=== PATIENT | female | born 1945 | race Caucasian/White ===

== ENCOUNTER 2016-09-01 14:17 | Emergency (ER) | payer BC ==
[2016-09-01 14:29] VITALS: BP 138/90
--- NOTE | 2016-09-01 14:53 | EDM.PDOC ---
ED HPI Trauma - General Chief Complaint: Lower Extremity Injury/Pain Stated Complaint: RLE swelling Time Seen by Provider: 09/01/16 14:30 Source: Reports: Patient History Limitations: Reports: No limitations - History of Present Illness INITIAL COMMENTS - FREE TEXT/NARRATIVE: This patient is a 71 year old female that presents to the ER. Patient reports that she noticed about 1 1/2 hours ago that she had RLE swelling. Patient reports some pain associated with the swelling. Patient reports that also for about 1 month she has had congestion, drainage, mild back pain, mild abdominal burning. Patient also requests a urine to be collected. Patient denies ford, dizziness, n, v, d, f, cp, soa, bowel changes. Patient RLE does not have heat. There is redness to the plantar aspect of 1-4 digits. No open wounds are seen. This is not hot to touch. There are vericose veins. Pulses +2, cap refill <2 sec , sensory/motor function intact, neurovascular intact. Occurred When: just prior to arrival Occurred Where: home Method of Injury: unknown Severity: mild Pain/Injury Location: Reports: lower extremity, right Consciousness: Reports: no loss of consciousness Associated Symptoms: Reports: abdominal pain (burning for 1 month. ). Denies: chest pain, confusion, dizziness, headache, lightheadedness, muscle spasms, nausea/vomiting, neck pain, ringing in ears, seizures, shortness of breath, slurred speech, trouble walking, vision changes Allergies/ADRs: Allergies mirabegron [From Myrbetriq] Allergy (Verified 09/01/16 14:18) Other sulfamethoxazole [From Bactrim] Allergy (Verified 09/01/16 14:18) Hives tramadol Allergy (Verified 09/01/16 14:18) Confusion trimethoprim [From Bactrim] Allergy (Verified 09/01/16 14:18) Hives Home Medications: Ambulatory Orders Estradiol 1 mg PO DAILY 01/04/14 [Confirmed 09/02/16] LORazepam 2 mg PO BEDTIME 01/04/14 [Confirmed 09/02/16] Levothyroxine [Sythroid] 100 mcg PO DAILY 01/04/14 [Confirmed 09/02/16] Metoprolol Succinate [Toprol Xl] 100 mg PO DAILY 01/04/14 [Confirmed 09/02/16] Acetaminophen [Tylenol] 650 mg PO Q6H PRN 12/11/14 [Confirmed 09/02/16] Aspirin 325 mg PO BEDTIME 12/11/14 [Confirmed 09/02/16] Cholecalciferol (Vitamin D3) [Vitamin D-3] 5,000 units PO BEDTIME 12/11/14 [ Confirmed 09/02/16] Cranberry 2 cap PO DAILY 12/11/14 [Confirmed 09/02/16] Cyanocobalamin (Vitamin B-12) [Cyanocobalamin Injection] 2,000 mcg IM Q14D 12/11 [Confirmed 09/02/16] Esomeprazole Magnesium [Nexium] 20 mg PO DAILY PRN 12/11/14 [Confirmed 09/02/16] Lactobac Cmb #3/Fos/Pantethine [Probiotic & Acidophilus] 1 tab PO DAILY [Confirmed 09/02/16] Loratadine [Claritin] 1 tab PO DAILY PRN 12/11/14 [Confirmed 09/02/16] Tetrahydrozoline [Visine] 1 drop EYEBOTH QID PRN 12/11/14 [Confirmed 09/02/16] Sennosides/Docusate Sodium [Marina-Colace] 1 tab PO BID PRN 02/17/15 [Confirmed ] Cinnamon Bark [Cinnamon] 500 mg PO DAILY 09/01/16 [Confirmed 09/02/16] Diltiazem HCl [Cartia Xt] 120 mg PO DAILY 09/01/16 [Confirmed 09/02/16] atorvaSTATin Calcium [Atorvastatin Calcium] 20 mg PO DAILY 09/01/16 [Confirmed 09/02/16] Albuterol Sulfate [Proair Hfa] 1 puff INH Q4H PRN 09/02/16 [Confirmed 09/02/16] Budesonide/Formoterol [Symbicort 160-4.5 MCG] 2 puff INH BID 09/02/16 [ Confirmed 09/02/16] Folic Acid 1 mg PO DAILY 09/02/16 [Confirmed 09/02/16] Potassium Chloride 20 meq PO BID 09/02/16 [Confirmed 09/02/16] Past Medical History - Past Health History Medical/Surgical History: Denies Medical/Surgical History HEENT History: Reports: Cataract, Sinusitis Cardiovascular History: Reports: Afib, Other (see below) Other Cardiovascular History: SVT Respiratory History: Reports: Asthma Gastrointestinal History: Reports: None Genitourinary History: Reports: Urinary incontinence [employer] History: Reports: Musculoskeletal History: Reports: Fracture Psychiatric History: Reports: Anxiety Hematologic History: Reports: Blood transfusion(s) Oncologic (Cancer) History: Reports: None Dermatologic History: Reports: Other (see below) Other Dermatologic History: reports years ago dr removed skin cancer on face. - Past Surgical History HEENT Surgical History: Reports: Cataract surgery Cardiovascular Surgical History: Reports: Cardiac Ablation GI Surgical History: Reports: Appendectomy, Cholecystectomy Female Surgical History: Reports: Hysterectomy, Other (see below) Other Female Surgeries/Procedures: bladder reconstructed Endocrine Surgical History: Reports: Thyroidectomy Oncologic Surgical History: Reports: Biopsy of breast Social & Family History - Family History Family Medical History: Noncontributory - Tobacco Use Smoking Status *Q: Never Smoker Second Hand Smoke Exposure: Yes - Recreational Drug Use Recreational Drug Use: No Review of Systems - Review of Systems Review Of Systems: See Below Constitutional: Reports: no symptoms Eyes: Reports: no symptoms Ears: Reports: no symptoms Nose: Reports: congestion, clear discharge Mouth/Throat: Reports: no symptoms Respiratory: Reports: Cough, Sputum Cardiovascular: Reports: edema (RLE) GI/Abdominal: Reports: Abdominal pain (burning) Genitourinary: Reports: no symptoms Musculoskeletal: Reports: back pain (right), leg pain (RLE with swelling) Skin: Reports: other (RLE mild discoloration. vericose veins. ) Neurological: Reports: No Symptoms Psychiatric: Reports: no symptoms Trauma Exam - Physical Exam Exam: See Below Exam Limited By: Uncooperative General Appearance: Reports: no apparent distress Head: Reports: atraumatic, normocephalic Eyes: bilateral eye: normal inspection Ears: Reports: normal external exam, normal canal, hearing grossly normal, normal TMs Nose: Reports: normal inspection, normal mucousa, no blood Throat/Mouth: Reports: Normal inspection, Normal lips, Normal gums, Normal oropharynx, Normal voice, No airway compromise Neck: Reports: non-tender, full range of motion, normal alignment, normal inspection Respiratory Exam: Reports: no respiratory distress, lungs clear, normal breath sounds, no accessory muscle use Cardiovascular: Reports: normal peripheral pulses, regular rate, rhythm, no edema, no gallop, no JVD, no murmur, no rub GI/Abdominal: Reports: soft, non tender Back: Reports: full range of motion, normal inspection, non-tender. Denies: CVA tenderness (R), CVA tenderness (L) Extremities: Reports: no evidence of injury, normal range of motion, pelvis stable, pedal edema (RLE+2), tenderness (mild general RLE. ), other (RLE: no redness to extremity beside plantar aspect 1-4 digits. no heat. Pulses +2. Cap refill <2 sec. ). Denies: bony-point tenderness, joint effusion, pain with movement, unable to bear weight Neurologic: Reports: no motor/sensory deficits, alert, normal mood/affect, oriented x 3 Skin: Reports: Normal color, Warm/dry - Tamika Coma Score Best Eye Response ([place]): (4) open spontaneously Best Verbal Response ([place]): (5) oriented Best Motor Response ([place]): (6) obeys commands Course - Vital Signs Last Recorded V/S: Last Vital Signs Temp 99.0 F 09/01/16 14:24 Pulse 66 09/01/16 14:24 Resp 20 09/01/16 14:24 BP 138/90 09/01/16 14:24 Pulse Ox 91 L 09/01/16 14:24 - Orders/Labs/Meds Labs: Laboratory Tests 09/01/16 09/01/16 09/01/16 Range/Units 14:38 14:47 15:09 WBC 13.8 H (5.0-10.0) 10^3/uL RBC 4.36 (4.00-5.50) 10^6/uL Hgb 12.6 (12.0-16.0) g/dL Hct 38.6 (37.0-47.0) % MCV 88.5 (82.0-94.0) fL MCH 28.9 (27.0-32.0) pg MCHC 32.6 L (33.0-38.0) g/dL RDW Coeff of Sher 14.8 (11.0-15.0) % Plt Count 325 (150-400) 10^3/uL Neut % (Auto) 87.6 H (35-85) % Lymph % (Auto) 6.4 L (10-55) % [place] % (Auto) 5.9 (0-16) % Eos % (Auto) 0 (0-5) % Baso % (Auto) 0.1 (0-3) % Neut # (Auto) 12.10 H (1.80-7.00) 10^3/uL Lymph # (Auto) 0.88 L (1.00-4.80) 10^3/uL [place] # (Auto) 0.82 H (0.00-0.80) 10^3/uL Eos # (Auto) 0.00 (0.00-0.45) 10^3/uL Baso # (Auto) 0.02 10^3/uL PT (9.7-12.3) SEC INR (0.92-1.18) APTT (20.0-45.0) SEC D-Dimer, Quantitative 4.75 H (0.00-0.50) Sodium (136-145) mEq/L Potassium (3.5-5.0) mEq/L Chloride (98-106) mEq/L Carbon Dioxide (21-32) mmol/L BUN (7-18) mg/dL Creatinine (0.6-1.0) mg/dL Est Cr Clr Drug Dosing mL/min Estimated GFR (MDRD) (>=60) mL/min Glucose (75-99) mg/dL Calcium (8.4-10.1) mg/dL Total Bilirubin (0.0-1.0) mg/dL AST (15-37) U/L ALT (12-78) U/L Alkaline Phosphatase (46-116) U/L Szt-I-Nyvoqfltjoz Pept (0-1000) pg/nL Total Protein (6.4-8.2) g/dL Albumin (3.4-5.0) g/dL Urine Color Yellow (YELLOW) Urine Appearance Clear (CLEAR) Urine pH 7.0 (4.5-8.0) Ur Specific [place] 1.006 (1.003-1.020) Urine Protein Negative (NEGATIVE) mg/dL Urine Glucose (UA) Negative (NEGATIVE) mg/dL Urine Ketones Negative (NEGATIVE) mg/dL Urine Occult Blood Negative (NEGATIVE) Urine Nitrite Negative (NEGATIVE) Urine Bilirubin Negative (NEGATIVE) Urine Urobilinogen 0.2 (0.2-1.0) EU/dL Ur Leukocyte Esterase Negative (NEGATIVE) Urine RBC Not seen (0-5) /HPF Urine WBC Not seen (0-5) /HPF Ur Squamous Epith Cells Occasional H (NOT SEEN) /HPF Urine Bacteria Occasional H (NOT SEEN) /HPF 09/01/16 09/01/16 Range/Units 15:09 15:39 WBC (5.0-10.0) 10^3/uL RBC (4.00-5.50) 10^6/uL Hgb (12.0-16.0) g/dL Hct (37.0-47.0) % MCV (82.0-94.0) fL MCH (27.0-32.0) pg MCHC (33.0-38.0) g/dL RDW Coeff of Sher (11.0-15.0) % Plt Count (150-400) 10^3/uL Neut % (Auto) (35-85) % Lymph % (Auto) (10-55) % [place] % (Auto) (0-16) % Eos % (Auto) (0-5) % Baso % (Auto) (0-3) % Neut # (Auto) (1.80-7.00) 10^3/uL Lymph # (Auto) (1.00-4.80) 10^3/uL [place] # (Auto) (0.00-0.80) 10^3/uL Eos # (Auto) (0.00-0.45) 10^3/uL Baso # (Auto) 10^3/uL PT 10.3 (9.7-12.3) SEC INR 0.96 (0.92-1.18) APTT 22.5 (20.0-45.0) SEC D-Dimer, Quantitative (0.00-0.50) Sodium 141 (136-145) mEq/L Potassium 3.9 (3.5-5.0) mEq/L Chloride 103 (98-106) mEq/L Carbon Dioxide 27 (21-32) mmol/L BUN 14 (7-18) mg/dL Creatinine 0.6 (0.6-1.0) mg/dL Est Cr Clr Drug Dosing 72.11 mL/min Estimated GFR (MDRD) > 60 (>=60) mL/min Glucose 96 (75-99) mg/dL Calcium 8.3 L (8.4-10.1) mg/dL Total Bilirubin 0.5 (0.0-1.0) mg/dL AST 14 L (15-37) U/L ALT 22 (12-78) U/L Alkaline Phosphatase 72 (46-116) U/L Mez-Z-Ubwfsqluaiy Pept 178 (0-1000) pg/nL Total Protein 6.6 (6.4-8.2) g/dL Albumin 3.2 L (3.4-5.0) g/dL Urine Color (YELLOW) Urine Appearance (CLEAR) Urine pH (4.5-8.0) Ur Specific [place] (1.003-1.020) Urine Protein (NEGATIVE) mg/dL Urine Glucose (UA) (NEGATIVE) mg/dL Urine Ketones (NEGATIVE) mg/dL Urine Occult Blood (NEGATIVE) Urine Nitrite (NEGATIVE) Urine Bilirubin (NEGATIVE) Urine Urobilinogen (0.2-1.0) EU/dL Ur Leukocyte Esterase (NEGATIVE) Urine RBC (0-5) /HPF Urine WBC (0-5) /HPF Ur Squamous Epith Cells (NOT SEEN) /HPF Urine Bacteria (NOT SEEN) /HPF Meds: Medications Discontinued Medications Generic Name Dose Route Start Last Admin Trade Name Freq PRN Reason Stop Dose Admin Ceftriaxone Sodium 1 gm 09/01/16 15:50 09/01/16 16:04 Rocephin IM 09/01/16 15:51 1 gm ONETIME ONE Administration Enoxaparin Sodium 100 mg 09/01/16 15:50 09/01/16 16:05 Lovenox SUBCUT 09/01/16 15:51 100 mg NOW STA Administration Lidocaine HCl Confirm 09/01/16 15:50 09/01/16 16:06 Xylocaine 1% Administered 09/01/16 15:51 Not Given Dose 20 ml .ROUTE .STK-MED ONE Warfarin Sodium 5 mg 09/01/16 15:53 09/01/16 16:04 Coumadin PO 09/01/16 15:54 5 mg ONETIME ONE Administration - Re-Assessments/Exams Free Text/Narrative Re-Assessment/Exam: 09/01/16 15:36 Patient has pulses and good color. Very low suspicion of arterial clot. Patient has a high d-dimer, I will treat for possible DVT. We do not have US this weekend. I will treat patient with Lovenox today and tomorrow. She will also get abx treatment for leukocytosis and redness to feet with swelling. Higher suspicion for DVT verses cellulitis. However, without having US this weekend to give definitive diagnosis, I will treat both. Departure - Departure Time of Disposition: 15:39 Disposition: Home, Self-Care 01 Condition: fair Clinical Impression: Cellulitis of right lower extremity Right leg DVT Qualifiers: Affected thrombotic vein of extremity: unspecified vein of extremity Chronicity : acute Qualified Code(s): I82.401 - Acute embolism and thrombosis of unspecified deep veins of right lower extremity Instructions: Deep Vein Thrombosis, Cellulitis, Adult Referrals: Deni Malagon MD [Primary Care Provider] - Forms: ED Department Discharge Additional Instructions: Followup with your primary care provider Saturday Morning Return to the ER for worsening of condition or any emergent concerns Elevate leg Lovenox 100mg 1 injection every 12 hours at the hospital: PLEASE RETURN TO THE HOSPITAL FOR INJECTIONS ON: Saturday: 7am and 7pm Have ultrasound performed on legs Saturday at 8am. - Assessment/Plan Plan: PLEASE SEE RN NOTE FOR PFSH.
[2016-09-01 15:33] LABS: CHLORIDE,CL 103 mEq/L (98-106); SODIUM,NA 141 mEq/L (136-145)
[2016-09-01] MEDS ORDERED: cefTRIAXone 1 GM Vial IM ONE (15:50)
[2016-09-01] MEDS ORDERED: Lidocaine 1% 20 ML MDV ONE (15:50)
[2016-09-01] MEDS ORDERED: Enoxaparin 100 MG/1 ML Syringe SUBCUT STA (15:50)
[2016-09-01] MEDS ORDERED: Warfarin 5 MG Tab PO ONE (15:53)
== END 2016-09-01 16:13 | disposition home or self-care (01) ==
LOC: CC.ED 14:17
DX: I82.401 Acute embolism and thrombosis of unspecified deep veins of right lower extremity (principal); L03.115 Cellulitis of right lower limb; J45.909 Unspecified asthma, uncomplicated; I48.91 Unspecified atrial fibrillation; F41.9 Anxiety disorder, unspecified; Z98.49 Cataract extraction status, unspecified eye; Z90.49 Acquired absence of other specified parts of digestive tract; Z90.710 Acquired absence of both cervix and uterus; Z88.5 Allergy status to narcotic agent; Z88.2 Allergy status to sulfonamides; Z88.8 Allergy status to other drugs, medicaments and biological substances
CPT/HCPCS: 36415; 80053; 81001; 83880; 85025; 85379; 85610; 85730; 96372; 99283; A9270; J0696; J1650

== ENCOUNTER 2016-09-25 16:19 | Inpatient (IN) | payer BC, MEDICARE ==
[2016-09-25 16:53] LABS: CHLORIDE,CL 100 mEq/L (98-106); SODIUM,NA 134 mEq/L (136-145)
[2016-09-25] MEDS ORDERED: Sodium Chloride 0.9% 10 ML Syringe FLUSH PRN (18:48)
[2016-09-25] MEDS ORDERED: Magnesium Hydroxide 400 MG/5 ML Susp 30 ML Cup PO PRN (18:48)
[2016-09-25] MEDS ORDERED: Warfarin 5 MG Tab PO ONE (18:48)
[2016-09-25] MEDS: Enoxaparin 100 MG/1 ML Syringe SUBCUT SCH (20:07)
[2016-09-25] MEDS: Potassium Chloride 10 MEQ Tab.ER PO SCH (22:13)
[2016-09-25] MEDS: LORazepam 0.5 MG Tab PO SCH (22:13)
[2016-09-26] MEDS: Potassium Chloride 10 MEQ Tab.ER PO SCH ×2 (08:06→16:53)
[2016-09-26] MEDS: Enoxaparin 100 MG/1 ML Syringe SUBCUT SCH ×2 (08:07→20:10)
[2016-09-26] MEDS ORDERED: LORazepam 0.5 MG Tab PO PRN (08:29)
[2016-09-26] MEDS ORDERED: Warfarin 5 MG Tab PO ONE (08:45)
[2016-09-26] MEDS: Diltiazem 120 MG Cap.CD PO SCH (08:46)
[2016-09-26] MEDS: Metoprolol Succinate 100 MG Tab.ER PO SCH (08:47)
[2016-09-26] MEDS: Ondansetron 4 MG Tab.DIS PO PRN ×2 (08:54→20:23)
--- NOTE | 2016-09-26 09:01 | PN ---
DATE: 09/26/2016 S: Katharine Zuñiga came in markedly short of breath. CTA shows bilateral pulmonary emboli. Now started on anticoagulation. O: GENERAL: The patient says she feels better today. NECK: Supple. CHEST: Occasional wheeze. CARDIAC: Sounds are good. No edema or evidence of DVTs in the lower extremities. ASSESSMENT: BILATERAL PULMONARY EMBOLI. P: Continue anticoagulation. MARIALUISA/SHOAIB /[id number]
[2016-09-26] MEDS ORDERED: TETRAHYDROZOLINE EYEBOTH PRN (10:22)
[2016-09-26] MEDS ORDERED: Albuterol/Ipratropium 3.0-0.5 MG/3 ML Neb Soln NEB PRN (10:22)
[2016-09-26] MEDS ORDERED: Albuterol 8 GM Inhaler INH PRN (10:22)
[2016-09-26] MEDS: Formoterol/Mometasone 200-5 MCG 8.8 GM Inhaler IH SCH ×2 (11:23→20:13)
[2016-09-26] MEDS: Pantoprazole 40 MG Tab.CR PO PRN (11:24)
[2016-09-26] MEDS: Levothyroxine 100 MCG Tab PO SCH (11:24)
[2016-09-26] MEDS: atorvaSTATin 20 MG Tab PO SCH (11:25)
[2016-09-26] MEDS: Folic Acid 1 MG Tab PO SCH (11:25)
[2016-09-26] MEDS: KETOTIFEN FUMARATE OP SCH ×2 (11:25→20:11)
[2016-09-26] MEDS: Estradiol 1 MG Tab PO SCH (11:25)
[2016-09-26] MEDS: ACIDOPHILUS PO SCH (11:26)
[2016-09-26] MEDS: PROBIOTIC PO SCH (11:26)
[2016-09-26] MEDS: Ciprofloxacin 500 MG Tab PO SCH ×2 (11:35→16:53)
[2016-09-26] MEDS: Acetaminophen 325 MG Tab PO PRN (17:02)
[2016-09-26] MEDS ORDERED: LORazepam 0.5 MG Tab PO SCH (20:00)
[2016-09-26] MEDS: Aspirin 325 MG Tab.EC PO SCH (20:08)
[2016-09-26] MEDS: LORazepam 0.5 MG Tab PO SCH (20:08)
[2016-09-26] MEDS: Polyvinyl Alcohol 1.4% Ophth Soln 15 ML Bottle EYEBOTH PRN (20:09)
[2016-09-26] MEDS: Cholecalciferol (Vitamin D3) 1,000 Unit Tab PO SCH (20:09)
[2016-09-26] MEDS: Temazepam 15 MG Cap PO PRN (22:19)
[2016-09-27] MEDS: Levothyroxine 100 MCG Tab PO SCH (06:17)
[2016-09-27] MEDS ORDERED: Metoprolol Succinate 100 MG Tab.ER PO SCH (08:00)
[2016-09-27] MEDS ORDERED: [UNRECOGNIZED DRUG - OTHER] SCH (08:00)
[2016-09-27] MEDS ORDERED: Diltiazem 120 MG Cap.CD PO SCH (08:00)
[2016-09-27] MEDS: Diltiazem 120 MG Cap.CD PO SCH (08:07)
[2016-09-27] MEDS: Ciprofloxacin 500 MG Tab PO SCH ×2 (08:08→17:47)
[2016-09-27] MEDS: Folic Acid 1 MG Tab PO SCH (08:08)
[2016-09-27] MEDS: KETOTIFEN FUMARATE OP SCH ×2 (08:08→19:31)
[2016-09-27] MEDS: Potassium Chloride 10 MEQ Tab.ER PO SCH ×2 (08:08→17:47)
[2016-09-27] MEDS: Estradiol 1 MG Tab PO SCH (08:08)
[2016-09-27] MEDS: PROBIOTIC PO SCH (08:09)
[2016-09-27] MEDS: ACIDOPHILUS PO SCH (08:09)
[2016-09-27] MEDS: atorvaSTATin 20 MG Tab PO SCH (08:09)
[2016-09-27] MEDS: Enoxaparin 100 MG/1 ML Syringe SUBCUT SCH (08:09)
[2016-09-27] MEDS: Metoprolol Succinate 100 MG Tab.ER PO SCH (08:09)
[2016-09-27] MEDS: Formoterol/Mometasone 200-5 MCG 8.8 GM Inhaler IH SCH ×2 (09:21→21:00)
[2016-09-27] MEDS: Polyvinyl Alcohol 1.4% Ophth Soln 15 ML Bottle EYEBOTH PRN (09:21)
[2016-09-27] MEDS: Acetaminophen 325 MG Tab PO PRN ×2 (10:35→19:43)
[2016-09-27] MEDS ORDERED: Warfarin 5 MG Tab PO ONE (14:34)
[2016-09-27] MEDS: LORazepam 0.5 MG Tab PO SCH (19:31)
[2016-09-27] MEDS: Aspirin 325 MG Tab.EC PO SCH (19:31)
[2016-09-27] MEDS: Enoxaparin 40 MG/0.4 ML Syringe SUBCUT SCH (19:32)
[2016-09-27] MEDS: Cholecalciferol (Vitamin D3) 1,000 Unit Tab PO SCH (19:32)
[2016-09-27] MEDS: Temazepam 15 MG Cap PO PRN (22:50)
[2016-09-28] MEDS: Acetaminophen 325 MG Tab PO PRN ×4 (03:36→20:33)
--- NOTE | 2016-09-28 07:52 | PN ---
DATE: 09/27/2016 S: Katharine Zuñiga is in with bilateral pulmonary emboli. Says she is feeling better today. O: NECK: Supple. CHEST: A little bit of wheeze. CARDIAC: Sounds good. EXTREMITIES: No edema. There is no evidence of peripheral DVTs, so I suspect this is pelvic thrombosis. She is stabilized. I am going continue anticoagulation and back her Lovenox off a little bit though. MARIALUISA/SHOAIB /[id number]
--- NOTE | 2016-09-28 09:13 | PN ---
DATE: 09/28/2016 S: Katharine Zuñiga is in with bilateral pulmonary emboli. Says she feels better today. O: NECK: Supple. CHEST: Basically clear. CARDIAC: Sounds were good. No edema. 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 P: Continue anticoagulation. MARIALUISA/SHOAIB /[id number]
[2016-09-28] MEDS: Potassium Chloride 10 MEQ Tab.ER PO SCH ×2 (09:15→17:00)
[2016-09-28] MEDS: atorvaSTATin 20 MG Tab PO SCH (09:15)
[2016-09-28] MEDS: Enoxaparin 40 MG/0.4 ML Syringe SUBCUT SCH ×2 (09:15→20:27)
[2016-09-28] MEDS: Pantoprazole 40 MG Tab.CR PO PRN (09:16)
[2016-09-28] MEDS: Estradiol 1 MG Tab PO SCH (09:16)
[2016-09-28] MEDS: Metoprolol Succinate 100 MG Tab.ER PO SCH (09:16)
[2016-09-28] MEDS: KETOTIFEN FUMARATE OP SCH ×2 (09:17→20:28)
[2016-09-28] MEDS: Ciprofloxacin 500 MG Tab PO SCH ×2 (09:17→17:01)
[2016-09-28] MEDS: Folic Acid 1 MG Tab PO SCH (09:17)
[2016-09-28] MEDS: Polyvinyl Alcohol 1.4% Ophth Soln 15 ML Bottle EYEBOTH PRN (09:18)
[2016-09-28] MEDS: PROBIOTIC PO SCH (09:18)
[2016-09-28] MEDS: ACIDOPHILUS PO SCH (09:18)
[2016-09-28] MEDS: Diltiazem 120 MG Cap.CD PO SCH (09:18)
[2016-09-28] MEDS: Formoterol/Mometasone 200-5 MCG 8.8 GM Inhaler IH SCH ×2 (09:20→20:28)
[2016-09-28] MEDS: Levothyroxine 100 MCG Tab PO SCH (09:20)
[2016-09-28] MEDS ORDERED: Warfarin 2.5 MG Tab PO ONE (10:00)
[2016-09-28] MEDS: Ondansetron 4 MG Tab.DIS PO PRN ×2 (11:32→17:00)
[2016-09-28] MEDS: Cholecalciferol (Vitamin D3) 1,000 Unit Tab PO SCH (20:27)
[2016-09-28] MEDS: LORazepam 0.5 MG Tab PO SCH (20:27)
[2016-09-28] MEDS: Aspirin 325 MG Tab.EC PO SCH (20:28)
[2016-09-29] MEDS: Acetaminophen 325 MG Tab PO PRN ×3 (04:00→20:05)
[2016-09-29] MEDS: Levothyroxine 100 MCG Tab PO SCH (06:50)
[2016-09-29] MEDS: Potassium Chloride 10 MEQ Tab.ER PO SCH ×2 (07:50→16:46)
[2016-09-29] MEDS: atorvaSTATin 20 MG Tab PO SCH (07:50)
[2016-09-29] MEDS: Diltiazem 120 MG Cap.CD PO SCH (07:51)
[2016-09-29] MEDS: Ondansetron 4 MG Tab.DIS PO PRN (07:51)
[2016-09-29] MEDS: Estradiol 1 MG Tab PO SCH (07:51)
[2016-09-29] MEDS: Folic Acid 1 MG Tab PO SCH (07:51)
[2016-09-29] MEDS: KETOTIFEN FUMARATE OP SCH ×2 (07:52→20:06)
[2016-09-29] MEDS: Polyvinyl Alcohol 1.4% Ophth Soln 15 ML Bottle EYEBOTH PRN (07:53)
[2016-09-29] MEDS: Enoxaparin 40 MG/0.4 ML Syringe SUBCUT SCH ×2 (07:53→20:06)
[2016-09-29] MEDS: ACIDOPHILUS PO SCH (07:54)
[2016-09-29] MEDS: PROBIOTIC PO SCH (07:54)
[2016-09-29] MEDS: Formoterol/Mometasone 200-5 MCG 8.8 GM Inhaler IH SCH ×2 (08:00→20:06)
[2016-09-29] MEDS: Metoprolol Succinate 100 MG Tab.ER PO SCH (08:00)
--- NOTE | 2016-09-29 09:06 | PCM.PN ---
- General Info Functional Status: Reports: new symptoms (abdominal pain with constipation.) - Review of Systems General: Reports: Chills, Other (flushed) HEENT: Reports: headaches (frontal) Pulmonary: Reports: no symptoms Cardiovascular: Reports: No Symptoms Gastrointestinal: Reports: Abdominal pain, Constipation. Denies: Diarrhea, Nausea, Vomiting Genitourinary: Reports: other (decreased urination yesterday during day, then increased during night per patient.) Musculoskeletal: Reports: no symptoms Skin: Reports: no symptoms Neurological: Reports: No Symptoms Psychiatric: Reports: no symptoms - Patient Data Vitals - most recent: Last Vital Signs Temp 98.1 F 09/29/16 07:31 Pulse 79 09/29/16 08:00 Resp 16 09/29/16 07:31 BP 109/73 09/29/16 08:00 Pulse Ox 97 09/29/16 07:31 Weight - most recent: 230 lb Med Orders - Current: Current Medications Acetaminophen (Tylenol) 650 mg PO Q6H PRN PRN Reason: Pain Last Admin: 09/29/16 04:00 Dose: 650 mg Albuterol (Ventolin Hfa) 0 gm INH Q4H PRN PRN Reason: Dyspnea Albuterol/Ipratropium (Duoneb 3.0-0.5 Mg/3 Ml) 3 ml NEB QID PRN PRN Reason: Shortness of Breath Artificial Tears (Liquitears 1.4% Ophth Soln) 0 ml EYEBOTH QID PRN PRN Reason: Dry Eyes Last Admin: 09/29/16 07:53 Dose: 1 drop Aspirin (Ecotrin) 325 mg PO BEDTIME [facility] Last Admin: 09/28/16 20:28 Dose: 325 mg Atorvastatin Calcium (Lipitor) 20 mg PO DAILY [facility] Last Admin: 09/29/16 07:50 Dose: 20 mg Cholecalciferol (Vitamin D3) 5,000 units PO BEDTIME [facility] Last Admin: 09/28/16 20:27 Dose: 5,000 units Diltiazem HCl (Cardizem Cd) 120 mg PO DAILY [facility] Last Admin: 09/29/16 07:51 Dose: 120 mg Enoxaparin Sodium (Lovenox) 40 mg SUBCUT BID [facility] Last Admin: 09/29/16 07:53 Dose: 40 mg Estradiol (Estradiol) 1 mg PO DAILY [facility] Last Admin: 09/29/16 07:51 Dose: 1 mg Folic Acid (Folic Acid) 1 mg PO DAILY [facility] Last Admin: 09/29/16 07:51 Dose: 1 mg Levothyroxine Sodium (Synthroid) 100 mcg PO 0700 [facility] Last Admin: 09/29/16 06:50 Dose: 100 mcg Lorazepam (Ativan) 2 mg PO BEDTIME [facility] Last Admin: 09/28/16 20:27 Dose: 2 mg Lorazepam (Ativan) 1 mg PO BID PRN PRN Reason: ANXIETY Last Admin: 09/29/16 07:52 Dose: 1 mg Magnesium Hydroxide (Milk Of Magnesia) 30 ml PO Q12H PRN PRN Reason: Constipation Metoprolol Succinate (Toprol Xl) 100 mg PO DAILY [facility] Last Admin: 09/29/16 08:00 Dose: 100 mg Mometasone Furoate/Formoterol Fumar (Dulera 200-5 Mcg) 2 puff IH BIDRT [facility] Last Admin: 09/29/16 08:00 Dose: 2 puff Ptom (Ketotifen Fumarate [Alaway] 1 Drop) 1 drop OP BID [facility] Last Admin: 09/29/16 07:52 Dose: Not Given Ptom [Probiotic & (Acidophilus]) 1 tab PO DAILY [facility] Last Admin: 09/29/16 07:54 Dose: Not Given Ptom ( Tetrahydrozoline [ Visine] 1 Drop) 1 drop EYEBOTH QID PRN PRN Reason: Dry Eyes Ondansetron HCl (Zofran Odt) 4 mg PO Q4H PRN PRN Reason: nausea, able to take PO Last Admin: 09/29/16 07:51 Dose: 4 mg Pantoprazole Sodium (Protonix) 40 mg PO DAILY PRN PRN Reason: Heartburn Last Admin: 09/28/16 09:16 Dose: 40 mg Potassium Chloride (Klor-Con 10) 20 meq PO BIDMEALS [facility] Last Admin: 09/29/16 07:50 Dose: 20 meq Senna/Docusate Sodium (Senna Plus) 1 tab PO BID PRN PRN Reason: Constipation Last Admin: 09/29/16 07:51 Dose: 1 tab Sodium Chloride (Saline Flush) 10 ml FLUSH ASDIRECTED PRN PRN Reason: Keep Vein Open Temazepam (Restoril) 15 mg PO BEDTIME PRN PRN Reason: Sleep Last Admin: 09/27/16 22:50 Dose: 15 mg Discontinued Medications Ciprofloxacin (Ciprofloxacin Hcl) 500 mg PO BIDMEALS [facility] Stop: 09/28/16 17:31 Last Admin: 09/28/16 17:01 Dose: 500 mg Enoxaparin Sodium (Lovenox) 100 mg SUBCUT Q12H [facility] Last Admin: 09/26/16 08:07 Dose: 100 mg Enoxaparin Sodium (Lovenox) 100 mg SUBCUT Q12H [facility] Last Admin: 09/27/16 08:09 Dose: 100 mg Lorazepam (Ativan) 2 mg PO BEDTIME [facility] Daily Warfarin Order (--Ask Prescriber) 1 each .XX DAILY [facility] Last Admin: 09/27/16 09:22 Dose: 1 each Warfarin Sodium (Coumadin) 10 mg PO ONETIME ONE Stop: 09/25/16 18:49 Last Admin: 09/25/16 20:06 Dose: 10 mg Warfarin Sodium (Coumadin) 10 mg PO ONETIME ONE Stop: 09/26/16 08:46 Last Admin: 09/26/16 08:47 Dose: 10 mg Warfarin Sodium (Coumadin) 7.5 mg PO ONETIME ONE Stop: 09/27/16 14:35 Last Admin: 09/27/16 14:54 Dose: 7.5 mg Warfarin Sodium (Coumadin) 7.5 mg PO ONETIME ONE Stop: 09/28/16 10:01 Last Admin: 09/28/16 11:32 Dose: 7.5 mg - Exam General: alert, oriented, cooperative, no acute distress HEENT: Pupils equal, Pupils reactive Neck: supple Lungs: Clear to auscultation, Normal respiratory effort Cardiovascular: Regular Rate, Regular Rhythm, No Murmurs Abdomen: bowel sounds present, soft, tenderness (mild LLQ), distension. No: rigidity, rebound, guarding, CVA tenderness Back Exam: normal inspection, full range of motion. No: CVA tenderness (L), CVA tenderness (R) Extremities: no edema, normal pulses, no tenderness/swelling, no clubbing, no cyanosis, no calf tenderness Skin: warm, dry, intact Neurological: no new focal deficit Psy/Mental Status: alert, normal affect, normal mood - Problem List Review Problem List Initiated/Reviewed/Updated: Yes - My Orders Last 24 Hours: My Active Orders 09/29/16 08:31 Abdomen 1V Flat [CR] Stat CBC WITH AUTO DIFF [HEME] Routine COMPREHENSIVE METABOLIC PN,CMP [CHEM] Routine INR,PT,PROTHROMBIN TIME [COAG] Routine 09/29/16 08:50 UA W/MICROSCOPIC [URIN] Routine - Plan Plan:: This patient is a 71 year old female that was admitted for PE. After talking with PCP of the patient it is planned to discharge the patient home if PT/INR are near therapeutic. However, patient reports that today when she woke up that she felt flushed, then had chills when ambulating to the bathroom. She reports that she has not had a BM in 3 days and is now having some adbominal discomfort. Patient reports a frontal headache. The patient denies lightheadedness, neck pain, neck stiffness, congestion, drainage, cp, soa, bowel changes, rashes. Patient is alert and oriented. She does not appear to be in acute distress. I have ordered labs and KUB and will review.
[2016-09-29 09:15] LABS: CHLORIDE,CL 101 mEq/L (98-106); SODIUM,NA 137 mEq/L (136-145)
[2016-09-29] MEDS: Aspirin 325 MG Tab.EC PO SCH (20:05)
[2016-09-29] MEDS: LORazepam 0.5 MG Tab PO SCH (20:05)
[2016-09-29] MEDS: Cholecalciferol (Vitamin D3) 1,000 Unit Tab PO SCH (20:06)
[2016-09-30] MEDS: Acetaminophen 325 MG Tab PO PRN ×2 (01:00→10:35)
[2016-09-30] MEDS: Levothyroxine 100 MCG Tab PO SCH (06:25)
[2016-09-30] MEDS: Estradiol 1 MG Tab PO SCH (08:02)
[2016-09-30] MEDS: Enoxaparin 40 MG/0.4 ML Syringe SUBCUT SCH (08:02)
[2016-09-30] MEDS: Potassium Chloride 10 MEQ Tab.ER PO SCH (08:03)
[2016-09-30] MEDS: atorvaSTATin 20 MG Tab PO SCH (08:03)
[2016-09-30] MEDS: Diltiazem 120 MG Cap.CD PO SCH (08:03)
[2016-09-30] MEDS: Metoprolol Succinate 100 MG Tab.ER PO SCH (08:03)
[2016-09-30] MEDS: Folic Acid 1 MG Tab PO SCH (08:03)
[2016-09-30] MEDS: ACIDOPHILUS PO SCH (08:04)
[2016-09-30] MEDS: PROBIOTIC PO SCH (08:04)
[2016-09-30] MEDS: KETOTIFEN FUMARATE OP SCH (08:04)
[2016-09-30] MEDS: Formoterol/Mometasone 200-5 MCG 8.8 GM Inhaler IH SCH (08:06)
[2016-09-30] MEDS ORDERED: Magnesium Citrate Solution 296 ML Bottle PO ONE ×2 (08:08→12:15)
[2016-09-30 12:47] VITALS: BP 138/81
--- NOTE | 2016-09-30 13:52 | PCM.DCSUM1 ---
Discharge Summary - Hospital Course HPI Initial Comments: This patient is a 71 year old female that was admitted for PE. Patient was placed on Coumadin to become therapeutic. The patient had reproted feeling constipated yesterday. I ordered Mag Citrate today, she had a successful BM. She now has no symptoms. She reports she feels good today after having a BM. Patient labs today are unremarkable. The patient reports she would like to go home. She reports she can see her PCP in office. I do agree with this plan. I will discharge the patient home today. Stable. - Discharge Data Discharge Date: 09/30/16 Discharge Disposition: Home, Self-Care 01 Condition: Good - Patient Instructions Diet: Usual Diet as Tolerated Activity: As Tolerated Showering/Bathing: May Shower Notify Provider of: Fever, Increased Pain, Swelling and Redness, Drainage, Nausea and/or Vomiting - Discharge Plan Prescriptions/Med Rec: Warfarin [Coumadin] 5 mg PO DAILY #30 tablet Home Medications: Home Meds Estradiol 1 mg PO DAILY 01/04/14 [History] LORazepam 2 mg PO BEDTIME 01/04/14 [History] Levothyroxine [Synthroid] 100 mcg PO DAILY 01/04/14 [History] Metoprolol Succinate [Toprol Xl] 100 mg PO DAILY 01/04/14 [History] Acetaminophen [Tylenol] 650 mg PO Q6H PRN 12/11/14 [History] Aspirin 325 mg PO BEDTIME 12/11/14 [History] Cholecalciferol (Vitamin D3) [Vitamin D3] 5,000 units PO BEDTIME 12/11/14 [ History] Cyanocobalamin (Vitamin B-12) [Cyanocobalamin Injection] 2,000 mcg IM Q14D 12/11 [History] Esomeprazole Magnesium [Nexium] 20 mg PO DAILY PRN 12/11/14 [History] Lactobac Cmb #3/Fos/Pantethine [Probiotic & Acidophilus] 1 tab PO DAILY [History] Tetrahydrozoline [Visine] 1 drop EYEBOTH QID PRN 12/11/14 [History] Sennosides/Docusate Sodium [Marina-Colace] 1 tab PO BID PRN 02/17/15 [History] Diltiazem HCl [Cartia Xt] 120 mg PO DAILY 09/01/16 [History] atorvaSTATin Calcium [Atorvastatin Calcium] 20 mg PO DAILY 09/01/16 [History] Albuterol Sulfate [Proair Hfa] 1 puff INH Q4H PRN 09/02/16 [History] Budesonide/Formoterol [Symbicort 160-4.5 MCG] 2 puff INH BID 09/02/16 [History] Folic Acid 1 mg PO DAILY 09/02/16 [History] Potassium Chloride 20 meq PO BID 09/02/16 [History] Albuterol/Ipratropium [DuoNeb 3.0-0.5 MG/3 ML] 3 ml NEB QID PRN 09/25/16 [ History] Dextran 70/Hypromellose [Artificial Tears] 1 drop EYEBOTH QID PRN 09/25/16 [ History] Ketotifen Fumarate [Alaway] 1 drop OP BID 09/25/16 [History] LORazepam 1 mg PO BID PRN 09/26/16 [History] Warfarin [Coumadin] 5 mg PO DAILY #30 tablet 09/30/16 [Rx] - Discharge Summary/Plan Comment DC Time >30 min.: No Discharge Summary/Plan Comment: Followup with your primary care provider this week Return to the ER for worsening of condition or any emergent concerns Take meds as prescribed. - General Info Date of Service: 09/30/16 Functional Status: Reports: pain controlled - Review of Systems General: Reports: No Symptoms HEENT: Reports: no symptoms Pulmonary: Reports: no symptoms Cardiovascular: Reports: No Symptoms Gastrointestinal: Reports: No symptoms Genitourinary: Reports: no symptoms Musculoskeletal: Reports: no symptoms Skin: Reports: no symptoms Neurological: Reports: No Symptoms Psychiatric: Reports: no symptoms - Patient Data Vitals - Most Recent: Last Vital Signs Temp 98.0 F 09/30/16 12:00 Pulse 68 09/30/16 12:00 Resp 20 09/30/16 12:00 BP 138/81 09/30/16 12:00 Pulse Ox 95 09/30/16 12:00 Weight - Most Recent: 230 lb Med Orders - Current: Current Medications Acetaminophen (Tylenol) 650 mg PO Q6H PRN PRN Reason: Pain Last Admin: 09/30/16 10:35 Dose: 650 mg Albuterol (Ventolin Hfa) 0 gm INH Q4H PRN PRN Reason: Dyspnea Albuterol/Ipratropium (Duoneb 3.0-0.5 Mg/3 Ml) 3 ml NEB QID PRN PRN Reason: Shortness of Breath Artificial Tears (Liquitears 1.4% Ophth Soln) 0 ml EYEBOTH QID PRN PRN Reason: Dry Eyes Last Admin: 09/29/16 07:53 Dose: 1 drop Aspirin (Ecotrin) 325 mg PO BEDTIME [facility] Last Admin: 09/29/16 20:05 Dose: 325 mg Atorvastatin Calcium (Lipitor) 20 mg PO DAILY [facility] Last Admin: 09/30/16 08:03 Dose: 20 mg Cholecalciferol (Vitamin D3) 5,000 units PO BEDTIME [facility] Last Admin: 09/29/16 20:06 Dose: 5,000 units Diltiazem HCl (Cardizem Cd) 120 mg PO DAILY [facility] Last Admin: 09/30/16 08:03 Dose: 120 mg Enoxaparin Sodium (Lovenox) 40 mg SUBCUT BID [facility] Last Admin: 09/30/16 08:02 Dose: 40 mg Estradiol (Estradiol) 1 mg PO DAILY [facility] Last Admin: 09/30/16 08:02 Dose: 1 mg Folic Acid (Folic Acid) 1 mg PO DAILY [facility] Last Admin: 09/30/16 08:03 Dose: 1 mg Levothyroxine Sodium (Synthroid) 100 mcg PO 0700 [facility] Last Admin: 09/30/16 06:25 Dose: 100 mcg Lorazepam (Ativan) 2 mg PO BEDTIME [facility] Last Admin: 09/29/16 20:05 Dose: 2 mg Lorazepam (Ativan) 1 mg PO BID PRN PRN Reason: ANXIETY Last Admin: 09/29/16 07:52 Dose: 1 mg Magnesium Hydroxide (Milk Of Magnesia) 30 ml PO Q12H PRN PRN Reason: Constipation Last Admin: 09/29/16 16:40 Dose: 30 ml Metoprolol Succinate (Toprol Xl) 100 mg PO DAILY [facility] Last Admin: 09/30/16 08:03 Dose: 100 mg Mometasone Furoate/Formoterol Fumar (Dulera 200-5 Mcg) 2 puff IH BIDRT [facility] Last Admin: 09/30/16 08:06 Dose: 2 puff Ptom (Ketotifen Fumarate [Alaway] 1 Drop) 1 drop OP BID [facility] Last Admin: 09/30/16 08:04 Dose: Not Given Ptom [Probiotic & (Acidophilus]) 1 tab PO DAILY [facility] Last Admin: 09/30/16 08:04 Dose: Not Given Ptom ( Tetrahydrozoline [ Visine] 1 Drop) 1 drop EYEBOTH QID PRN PRN Reason: Dry Eyes Ondansetron HCl (Zofran Odt) 4 mg PO Q4H PRN PRN Reason: nausea, able to take PO Last Admin: 09/29/16 07:51 Dose: 4 mg Pantoprazole Sodium (Protonix) 40 mg PO DAILY PRN PRN Reason: Heartburn Last Admin: 09/28/16 09:16 Dose: 40 mg Potassium Chloride (Klor-Con 10) 20 meq PO BIDMEALS [facility] Last Admin: 09/30/16 08:03 Dose: 20 meq Senna/Docusate Sodium (Senna Plus) 1 tab PO BID PRN PRN Reason: Constipation Last Admin: 09/29/16 07:51 Dose: 1 tab Sodium Chloride (Saline Flush) 10 ml FLUSH ASDIRECTED PRN PRN Reason: Keep Vein Open Temazepam (Restoril) 15 mg PO BEDTIME PRN PRN Reason: Sleep Last Admin: 09/27/16 22:50 Dose: 15 mg Discontinued Medications Ciprofloxacin (Ciprofloxacin Hcl) 500 mg PO BIDMEALS [facility] Stop: 09/28/16 17:31 Last Admin: 09/28/16 17:01 Dose: 500 mg Enoxaparin Sodium (Lovenox) 100 mg SUBCUT Q12H [facility] Last Admin: 09/26/16 08:07 Dose: 100 mg Enoxaparin Sodium (Lovenox) 100 mg SUBCUT Q12H [facility] Last Admin: 09/27/16 08:09 Dose: 100 mg Lorazepam (Ativan) 2 mg PO BEDTIME [facility] Magnesium Citrate (Citrate Of Magnesia) 150 ml PO ONETIME ONE Stop: 09/30/16 08:09 Last Admin: 09/30/16 08:22 Dose: 150 ml Magnesium Citrate (Citrate Of Magnesia) 150 ml PO ONETIME ONE Stop: 09/30/16 12:16 Last Admin: 09/30/16 12:33 Dose: 150 ml Daily Warfarin Order (--Ask Prescriber) 1 each .XX DAILY [facility] Last Admin: 09/27/16 09:22 Dose: 1 each Warfarin Sodium (Coumadin) 10 mg PO ONETIME ONE Stop: 09/25/16 18:49 Last Admin: 09/25/16 20:06 Dose: 10 mg Warfarin Sodium (Coumadin) 10 mg PO ONETIME ONE Stop: 09/26/16 08:46 Last Admin: 09/26/16 08:47 Dose: 10 mg Warfarin Sodium (Coumadin) 7.5 mg PO ONETIME ONE Stop: 09/27/16 14:35 Last Admin: 09/27/16 14:54 Dose: 7.5 mg Warfarin Sodium (Coumadin) 7.5 mg PO ONETIME ONE Stop: 09/28/16 10:01 Last Admin: 09/28/16 11:32 Dose: 7.5 mg - Exam General: Reports: alert, oriented, cooperative Lungs: Reports: Clear to auscultation, Normal respiratory effort Cardiovascular: Reports: Regular Rate, Regular Rhythm Abdomen: Reports: bowel sounds present, soft, no tenderness, no distension Back Exam: Reports: normal inspection, full range of motion Extremities: Reports: no edema, normal pulses, no tenderness/swelling, no clubbing, no cyanosis, no calf tenderness Skin: Reports: warm, dry, intact Neurological: Reports: no new focal deficit Psy/Mental Status: Reports: alert, normal affect, normal mood *Q Meaningful Use (DIS) - VTE *Q VTE Criteria *Q: - Stroke *Q Stroke Criteria *Q: - AMI *Q AMI Criteria *Q:
[2016-09-30] MEDS ORDERED: Warfarin 5 MG Tab PO ONE (14:08)
== END 2016-09-30 15:30 | disposition home or self-care (01) | DRG 134 ==
LOC: CC.FCMC 16:19 → CC.MS 16:19 → UNDOADMIN 18:34 → CC.MS 18:34
PROVIDERS: ADMIT Physician Assistant Medical; ATTEND General Practice
DX: I26.99 Other pulmonary embolism without acute cor pulmonale (principal); I10 Essential (primary) hypertension; R05 Cough; K59.00 Constipation, unspecified; Z83.3 Family history of diabetes mellitus; R51 Headache; Z79.01 Long term (current) use of anticoagulants; R10.9 Unspecified abdominal pain
CPT/HCPCS: 36415; 71275; 74020; 80053; 81001; 83880; 85025; 85379; 85610; 86140; 94760; A9270-GY; J1650; Q9967

== ENCOUNTER 2017-03-30 21:48 | Inpatient (IN) | payer BC, MEDICARE ==
[2017-03-30] MEDS ORDERED: Ondansetron 4 MG/2 ML SDV IVPUSH STA (22:15)
[2017-03-30] MEDS ORDERED: Sodium Chloride 0.9% 1,000 ML IV ONE (22:15)
--- NOTE | 2017-03-30 22:24 | EDM.PDOC ---
ED HPI GENERAL MEDICAL PROBLEM - General Chief Complaint: Abdominal Pain Stated Complaint: abdominal pain Time Seen by Provider: 03/30/17 21:58 Source of Information: Reports: Patient History Limitations: Reports: No Limitations - History of Present Illness INITIAL COMMENTS - FREE TEXT/NARRATIVE: This patient is a 71 year old female that presents to the ER. Patient reports that she started earlier today with constipation. She reports that she took two suppositories and did not have a BM. She reports she called the hospital and told them she was constipated. She reports with the constipation having abdominal pain. She reports she then took some Mirlax. She reports after taking the Miralax she vomited. She reports then close to 9pm she had a large liquid BM. She reports her abdominal pain did improve some after this, but then she vomited again. She reports vomiting a total of 5 times. The patient reports she was concerned about a bowel obstruction. The patient denies ford, dizziness, d, f , congestion, draiange, neck pain, neck stiffness, cp, soa, rashes. Patient does report she has had previous bladder surgeries and chronically leaks urine, but reports last several days she has not leaked any urine. She does repot recently being treated by PCP for UTI. Onset: Today Onset Date: 03/30/17 Location: Reports: Abdomen Quality: Reports: Ache Severity: Moderate Improves with: Reports: None Worsens with: Reports: None Associated Symptoms: Reports: Loss of Appetite, Nausea/Vomiting. Denies: Confusion, Chest Pain, Cough, cough w sputum, Diaphoresis, Fever/Chills, Headaches, Malaise, Rash, Seizure, Shortness of Breath, Syncope, Weakness Left Lower Abdomen Pain Score (Numeric/FACES): 7 - Related Data Allergies Allergy/AdvReac Type Severity Reaction Status Date / Time amitriptyline Allergy Other Verified 03/30/17 21:50 [email or web address] [From Myrbetriq] Allergy Other Verified 09/25/16 20:30 sulfamethoxazole Allergy Hives Verified 09/25/16 20:30 [From Bactrim] tramadol Allergy Confusion Verified 09/25/16 20:30 trimethoprim [From Bactrim] Allergy Hives Verified 09/25/16 20:30 Home Meds: Home Meds Estradiol 1 mg PO DAILY 01/04/14 [History] LORazepam 2 mg PO BEDTIME 01/04/14 [History] Levothyroxine [Synthroid] 100 mcg PO DAILY 01/04/14 [History] Metoprolol Succinate [Toprol Xl] 100 mg PO DAILY 01/04/14 [History] Acetaminophen [Tylenol] 650 mg PO Q6H PRN 12/11/14 [History] Aspirin 325 mg PO BEDTIME 12/11/14 [History] Cholecalciferol (Vitamin D3) [Vitamin D3] 5,000 units PO BEDTIME 12/11/14 [ History] Cyanocobalamin (Vitamin B-12) [Cyanocobalamin Injection] 2,000 mcg IM Q14D 12/11 [History] Esomeprazole Magnesium [Nexium] 20 mg PO DAILY PRN 12/11/14 [History] Lactobac Cmb #3/Fos/Pantethine [Probiotic & Acidophilus] 1 tab PO DAILY [History] Tetrahydrozoline [Visine] 1 drop EYEBOTH QID PRN 12/11/14 [History] Sennosides/Docusate Sodium [Marina-Colace] 1 tab PO BID PRN 02/17/15 [History] Diltiazem HCl [Cartia Xt] 120 mg PO DAILY 09/01/16 [History] atorvaSTATin Calcium [Atorvastatin Calcium] 20 mg PO DAILY 09/01/16 [History] Albuterol Sulfate [Proair Hfa] 1 puff INH Q4H PRN 09/02/16 [History] Budesonide/Formoterol [Symbicort 160-4.5 MCG] 2 puff INH BID 09/02/16 [History] Folic Acid 1 mg PO DAILY 09/02/16 [History] Potassium Chloride 20 meq PO BID 09/02/16 [History] Albuterol/Ipratropium [DuoNeb 3.0-0.5 MG/3 ML] 3 ml NEB QID PRN 09/25/16 [ History] Dextran 70/Hypromellose [Artificial Tears] 1 drop EYEBOTH QID PRN 09/25/16 [ History] Ketotifen Fumarate [Alaway] 1 drop OP BID 09/25/16 [History] LORazepam 1 mg PO BID PRN 09/26/16 [History] Warfarin [Coumadin] 5 mg PO DAILY #30 tablet 09/30/16 [Rx] Past Medical History - Past Health History Medical/Surgical History: Denies Medical/Surgical History HEENT History: Reports: Cataract, Sinusitis Cardiovascular History: Reports: Afib, Other (See Below) Other Cardiovascular History: SVT Respiratory History: Reports: Asthma Gastrointestinal History: Reports: None Genitourinary History: Reports: Urinary Incontinence [employer] History: Reports: Musculoskeletal History: Reports: Fracture Psychiatric History: Reports: Anxiety Hematologic History: Reports: Blood Transfusion(s) Oncologic (Cancer) History: Reports: None Dermatologic History: Reports: Other (See Below) Other Dermatologic History: reports years ago removed skin cancer on face. - Past Surgical History HEENT Surgical History: Reports: Cataract Surgery GI Surgical History: Reports: Appendectomy, Cholecystectomy Female Surgical History: Reports: Hysterectomy, Other (See Below) Endocrine Surgical History: Reports: Thyroidectomy Oncologic Surgical History: Reports: Biopsy of Breast Social & Family History - Family History Family Medical History: Noncontributory - Tobacco Use Smoking Status *Q: Never Smoker Second Hand Smoke Exposure: No - Recreational Drug Use Recreational Drug Use: No ED ROS GENERAL - Review of Systems Review Of Systems: See Below Constitutional: Reports: Malaise, Decreased Appetite HEENT: Reports: No Symptoms Respiratory: Reports: No Symptoms Cardiovascular: Reports: No Symptoms Endocrine: Reports: No Symptoms GI/Abdominal: Reports: Abdominal Pain, Constipation, Distension, Nausea, Vomiting : Reports: No Symptoms Musculoskeletal: Reports: No Symptoms Skin: Reports: No Symptoms Neurological: Reports: No Symptoms Psychiatric: Reports: No Symptoms Hematologic/Lymphatic: Reports: No Symptoms Immunologic: Reports: No Symptoms ED EXAM, GI/ABD - Physical Exam Exam: See Below Exam Limited By: No Limitations General Appearance: Alert, WD/WN, No Apparent Distress, Anxious Eyes: Bilateral: Normal Appearance Ears: Normal External Exam, Normal Canal, Hearing Grossly Normal, Normal TMs Nose: Normal Inspection, Normal Mucosa, No Blood Throat/Mouth: Normal Inspection, Normal Lips, Normal Teeth, Normal Gums, Normal Oropharynx, Normal Voice, No Airway Compromise Head: Atraumatic, Normocephalic Neck: Normal Inspection, Supple, Non-Tender, Full Range of Motion Respiratory/Chest: No Respiratory Distress, Lungs Clear, Normal Breath Sounds, No Accessory Muscle Use Cardiovascular: Normal Peripheral Pulses, Regular Rate, Rhythm, No Edema, No Gallop, No JVD, No Murmur, No Rub GI/Abdominal Exam: Soft, No Organomegaly, No Abnormal Bruit, No Mass, Pelvis Stable, Distended, Tender (LLQ, LUQ, RLQ. ). No: Guarding Back Exam: Normal Inspection, Full Range of Motion. No: CVA Tenderness (L), CVA Tenderness (R) Extremities: Normal Inspection, Normal Range of Motion, Non-Tender, No Pedal Edema, Normal Capillary Refill Neurological: Alert, Oriented Psychiatric: Normal Mood, Anxious Skin Exam: Warm, Dry, Intact, Normal Color, No Rash Lymphatic: No Adenopathy Course - Vital Signs Last Recorded V/S: Last Vital Signs Temp 98.4 F 03/30/17 21:48 Pulse 73 03/30/17 21:48 Resp 18 03/30/17 21:48 BP 146/82 H 03/30/17 21:48 Pulse Ox 95 03/30/17 21:48 - Orders/Labs/Meds Orders: Active Orders 24 hr Category Date Time Status Patient Status Manage Transfer [TRANSFER] Routine ADT 03/30/17 23:00 Ordered Abdomen Pelvis wo Cont [CT] Stat Exams 03/30/17 22:18 Taken CULTURE URINE [RM] Stat Lab 03/30/17 22:41 Received Resuscitation Status Routine Resus Stat 03/30/17 23:01 Ordered Labs: Laboratory Tests 03/30/17 03/30/17 03/30/17 Range/Units 22:03 22:03 22:35 WBC 11.4 H (5.0-10.0) 10^3/uL RBC 4.41 (4.00-5.50) 10^6/uL Hgb 12.3 (12.0-16.0) g/dL Hct 38.2 (37.0-47.0) % MCV 86.6 (82.0-94.0) fL MCH 27.9 (27.0-32.0) pg MCHC 32.2 L (33.0-38.0) g/dL RDW Coeff of Sher 16.1 H (11.0-15.0) % Plt Count 313 (150-400) 10^3/uL Neut % (Auto) 85.7 H (35-85) % Lymph % (Auto) 7.9 L (10-55) % [place] % (Auto) 6.1 (0-16) % Eos % (Auto) 0.2 (0-5) % Baso % (Auto) 0.1 (0-3) % Neut # (Auto) 9.80 H (1.80-7.00) 10^3/uL Lymph # (Auto) 0.90 L (1.00-4.80) 10^3/uL [place] # (Auto) 0.70 (0.00-0.80) 10^3/uL Eos # (Auto) 0.02 (0.00-0.45) 10^3/uL Baso # (Auto) 0.01 10^3/uL Sodium 135 L (136-145) mEq/L Potassium 3.9 (3.5-5.0) mEq/L Chloride 99 (98-106) mEq/L Carbon Dioxide 25 (21-32) mmol/L BUN 19 H D (7-18) mg/dL Creatinine 2.0 H D (0.6-1.0) mg/dL Est Cr Clr Drug Dosing 20.72 mL/min Estimated GFR (MDRD) 24 L (>=60) mL/min Glucose 103 H (75-99) mg/dL Calcium 8.7 (8.4-10.1) mg/dL Total Bilirubin 1.0 (0.0-1.0) mg/dL AST 20 (15-37) U/L ALT 19 (12-78) U/L Alkaline Phosphatase 104 (46-116) U/L Total Protein 7.3 (6.4-8.2) g/dL Albumin 3.5 (3.4-5.0) g/dL Amylase 39 (25-115) U/L Urine Color Brown (YELLOW) Urine Appearance Clear (CLEAR) Urine pH 5.0 (4.5-8.0) Ur Specific Capac 1.010 (1.003-1.020) Urine Protein 100 H (NEGATIVE) mg/dL Urine Glucose (UA) 250 H (NEGATIVE) mg/dL Urine Ketones 15 H (NEGATIVE) mg/dL Urine Occult Blood Trace-lysed H (NEGATIVE) Urine Nitrite Positive H (NEGATIVE) Urine Bilirubin Small H (NEGATIVE) Urine Urobilinogen 2.0 H (0.2-1.0) EU/dL Ur Leukocyte Esterase Trace H (NEGATIVE) Urine RBC 0-5 (0-5) /HPF Urine WBC 0-5 (0-5) /HPF Ur Squamous Epith Cells Occasional H (NOT SEEN) /HPF Urine Bacteria Many H (NOT SEEN) /HPF Meds: Medications Discontinued Medications Generic Name Dose Route Start Last Admin Trade Name Goyo PRN Reason Stop Dose Admin Ceftriaxone Sodium 2 gm 03/30/17 22:45 03/30/17 22:57 Rocephin IVPUSH 03/30/17 22:46 2 gm ONETIME ONE Administration Sodium Chloride 1,000 mls @ 1,000 mls/hr 03/30/17 22:15 03/30/17 22:48 Normal Saline IV 03/30/17 23:14 1,000 mls/hr .BOLUS ONE Administration Ondansetron HCl 4 mg 03/30/17 22:15 03/30/17 22:48 Zofran IVPUSH 03/30/17 22:16 4 mg NOW STA Administration - Radiology Interpretation Free Text/Narrative:: CT: Abd/pelvis: No hydro. Bowel normal. No stones. No acute findings. CT Results Date: 03/30/17 CT Results Time: 23:10 Departure - Departure Time of Disposition: 22:57 Disposition: Admitted As Inpatient 64 Condition: Poor Clinical Impression: Renal insufficiency UTI (urinary tract infection) Qualifiers: Urinary tract infection type: acute cystitis Hematuria presence: without hematuria Qualified Code(s): N30.00 - Acute cystitis without hematuria - Discharge Information Referrals: Deni Malagon MD [Primary Care Provider] - Forms: ED Department Discharge - My Orders Last 24 Hours: My Active Orders 03/30/17 22:18 Abdomen Pelvis wo Cont [CT] Stat 03/30/17 22:41 CULTURE URINE [RM] Stat 03/30/17 23:00 Patient Status Manage Transfer [TRANSFER] Routine 03/30/17 23:01 Resuscitation Status Routine - Assessment/Plan Last 24 Hours: My Active Orders 03/30/17 22:18 Abdomen Pelvis wo Cont [CT] Stat 03/30/17 22:41 CULTURE URINE [RM] Stat 03/30/17 23:00 Patient Status Manage Transfer [TRANSFER] Routine 03/30/17 23:01 Resuscitation Status Routine Plan: PLEASE SEE RN NOTE FOR PFSH. PLEASE USE ER H&P ADMIT H&P.
[2017-03-30] MEDS ORDERED: cefTRIAXone 2 GM Vial IVPUSH ONE (22:45)
[2017-03-31] MEDS ORDERED: HYDROmorphone 1 MG/ML Syringe IVPUSH PRN (00:02)
[2017-03-31] MEDS ORDERED: Acetaminophen/HYDROcodone 325-5 MG Tab PO PRN (00:02)
[2017-03-31] MEDS ORDERED: Albuterol/Ipratropium 3.0-0.5 MG/3 ML Neb Soln NEB PRN (00:02)
[2017-03-31] MEDS ORDERED: Acetaminophen 325 MG Tab PO PRN (00:02)
[2017-03-31] MEDS: Aspirin 81 MG Tab.Chew PO SCH ×2 (00:29→19:58)
[2017-03-31] MEDS ORDERED: Polyvinyl Alcohol 1.4% Ophth Soln 15 ML Bottle EYEBOTH PRN (00:30)
[2017-03-31] MEDS: Sodium Chloride 0.9% 1,000 ML IV SCH ×4 (00:47→23:23)
[2017-03-31] MEDS: Acetaminophen 325 MG Tab PO PRN ×3 (00:51→21:44)
[2017-03-31] MEDS: Ondansetron 4 MG/2 ML SDV IV PRN ×4 (04:23→21:45)
[2017-03-31] MEDS: Levothyroxine 100 MCG Tab PO SCH (07:53)
[2017-03-31] MEDS: Metoprolol Succinate 100 MG Tab.ER PO SCH (07:53)
[2017-03-31] MEDS: Diltiazem 120 MG Cap.CD PO SCH (07:54)
[2017-03-31] MEDS: atorvaSTATin 20 MG Tab PO SCH (07:55)
[2017-03-31] MEDS: Formoterol/Mometasone 200-5 MCG 8.8 GM Inhaler IH SCH ×2 (07:55→19:58)
[2017-03-31] MEDS: Potassium Chloride 10 MEQ Tab.ER PO SCH ×2 (07:56→16:45)
[2017-03-31] MEDS: KETOTIFEN FUMARATE OP SCH ×2 (07:56→19:58)
[2017-03-31] MEDS ORDERED: Warfarin 5 MG Tab PO SCH (08:00)
[2017-03-31] MEDS ORDERED: Pantoprazole 40 MG Tab.CR PO PRN (08:00)
--- NOTE | 2017-03-31 12:03 | PCM.PN ---
- General Info Date of Service: 03/31/17 Functional Status: Reports: Pain Controlled (improving), Tolerating Diet - Review of Systems General: Reports: No Symptoms HEENT: Reports: No Symptoms Pulmonary: Reports: No Symptoms Cardiovascular: Reports: No Symptoms Gastrointestinal: Reports: Abdominal Pain, Nausea. Denies: Diarrhea, Vomiting Genitourinary: Reports: Incontinence, Other (Now making urine per patient again. ) Musculoskeletal: Reports: No Symptoms Skin: Reports: No Symptoms Neurological: Reports: No Symptoms Psychiatric: Reports: No Symptoms - Patient Data Vitals - Most Recent: Last Vital Signs Temp 98.3 F 03/31/17 07:50 Pulse 63 03/31/17 07:54 Resp 20 03/31/17 07:50 BP 140/73 03/31/17 07:54 Pulse Ox 94 L 03/31/17 07:50 Weight - Most Recent: 221 lb 14.4 oz I&O - Last 24 Hours: Intake & Output 03/30/17 03/31/17 03/31/17 23:59 06:59 14:59 Intake Total 975 Output Total 900 Balance 75 Lab Results Last 24 Hours: Laboratory Results - last 24 hr 03/31/17 03/31/17 03/31/17 Range/Units 07:30 07:30 07:30 WBC 8.1 (5.0-10.0) 10^3/uL RBC 4.03 (4.00-5.50) 10^6/uL Hgb 11.3 L (12.0-16.0) g/dL Hct 35.4 L (37.0-47.0) % MCV 87.8 (82.0-94.0) fL MCH 28.0 (27.0-32.0) pg MCHC 31.9 L (33.0-38.0) g/dL RDW Coeff of Sher 16.1 H (11.0-15.0) % Plt Count 288 (150-400) 10^3/uL Neut % (Auto) 75.6 (35-85) % Lymph % (Auto) 14.6 (10-55) % [place] % (Auto) 9.3 (0-16) % Eos % (Auto) 0.4 (0-5) % Baso % (Auto) 0.1 (0-3) % Neut # (Auto) 6.10 (1.80-7.00) 10^3/uL Lymph # (Auto) 1.18 (1.00-4.80) 10^3/uL [place] # (Auto) 0.75 (0.00-0.80) 10^3/uL Eos # (Auto) 0.03 (0.00-0.45) 10^3/uL Baso # (Auto) 0.01 10^3/uL PT 26.6 H (9.7-12.3) SEC INR 2.40 H (0.92-1.18) Sodium 139 (136-145) mEq/L Potassium 3.4 L (3.5-5.0) mEq/L Chloride 105 (98-106) mEq/L Carbon Dioxide 23 (21-32) mmol/L BUN 15 (7-18) mg/dL Creatinine 1.7 H (0.6-1.0) mg/dL Est Cr Clr Drug Dosing 24.38 mL/min Estimated GFR (MDRD) 29 L (>=60) mL/min Glucose 89 (75-99) mg/dL Calcium 8.3 L (8.4-10.1) mg/dL Med Orders - Current: Current Medications Acetaminophen (Tylenol) 650 mg PO Q4H PRN PRN Reason: Pain (Mild 1-3)/fever Last Admin: 03/31/17 10:51 Dose: 650 mg Acetaminophen (Tylenol) 650 mg PO Q6H PRN PRN Reason: Pain Hydrocodone Bitart/Acetaminophen ([place] 325-5 Mg) 1 tab PO Q4H PRN PRN Reason: Pain (moderate 4-6) Last Admin: 03/31/17 04:24 Dose: 1 tab Albuterol/Ipratropium (Duoneb 3.0-0.5 Mg/3 Ml) 3 ml NEB QID PRN PRN Reason: Shortness of Breath Artificial Tears (Liquitears 1.4% Ophth Soln) 0 ml EYEBOTH QID PRN PRN Reason: Dry Eyes Aspirin (Aspirin) 81 mg PO BEDTIME [facility] Last Admin: 03/31/17 00:29 Dose: Not Given Atorvastatin Calcium (Lipitor) 20 mg PO DAILY [facility] Last Admin: 03/31/17 07:55 Dose: 20 mg Ceftriaxone Sodium (Rocephin) 1 gm IVPUSH Q24H [facility] Diltiazem HCl (Cardizem Cd) 120 mg PO DAILY [facility] Last Admin: 03/31/17 07:54 Dose: 120 mg Hydromorphone HCl (Dilaudid) 0.25 mg IVPUSH Q2H PRN PRN Reason: Pain (severe 7-10) Sodium Chloride (Normal Saline) 1,000 mls @ 125 mls/hr IV ASDIRECTED [facility] Last Admin: 03/31/17 07:35 Dose: 125 mls/hr Levothyroxine Sodium (Synthroid) 100 mcg PO DAILY [facility] Last Admin: 03/31/17 07:53 Dose: 100 mcg Metoprolol Succinate (Toprol Xl) 100 mg PO DAILY [facility] Last Admin: 03/31/17 07:53 Dose: 100 mg Mometasone Furoate/Formoterol Fumar (Dulera 200-5 Mcg) 0 puff IH BID [facility] Last Admin: 03/31/17 07:55 Dose: 2 puff Non-Formulary Medication (Ketotifen Fumarate [Alaway]) 1 drop OP BID [facility] Last Admin: 03/31/17 07:56 Dose: Not Given Non-Formulary Medication (Lactobac Cmb #3/Fos/Pantethine [Probiotic & Acidophilus]) 1 tab PO DAILY [facility] Last Admin: 03/31/17 07:57 Dose: Not Given Ondansetron HCl (Zofran) 4 mg IV Q4H PRN PRN Reason: Nausea/Vomiting Last Admin: 03/31/17 09:31 Dose: 4 mg Pantoprazole Sodium (Protonix) 40 mg PO DAILY PRN PRN Reason: Heartburn Potassium Chloride (Klor-Con 10) 20 meq PO BIDMEALS [facility] Last Admin: 03/31/17 07:56 Dose: Not Given Temazepam (Restoril) 15 mg PO BEDTIME PRN PRN Reason: Sleep Warfarin Sodium (Coumadin) 5 mg PO DAILY@1200 [facility] Discontinued Medications Ceftriaxone Sodium (Rocephin) 2 gm IVPUSH ONETIME ONE Stop: 03/30/17 22:46 Last Admin: 03/30/17 22:57 Dose: 2 gm Sodium Chloride (Normal Saline) 1,000 mls @ 1,000 mls/hr IV .BOLUS ONE Stop: 03/30/17 23:14 Last Admin: 03/30/17 22:48 Dose: 1,000 mls/hr Ondansetron HCl (Zofran) 4 mg IVPUSH NOW STA Stop: 03/30/17 22:16 Last Admin: 03/30/17 22:48 Dose: 4 mg Warfarin Sodium (Coumadin) 5 mg PO DAILY [facility] - Exam General: Alert, Oriented, Cooperative, No Acute Distress Lungs: Clear to Auscultation, Normal Respiratory Effort Cardiovascular: Regular Rate, Regular Rhythm GI/Abdominal Exam: Normal Bowel Sounds, Soft, No Organomegaly, No Distention, No Abnormal Bruit, No Mass, Pelvis Stable, Tender (mildly diffuse. ) Back Exam: Normal Inspection, Full Range of Motion. No: CVA Tenderness (L), CVA Tenderness (R) Extremities: Normal Inspection, Normal Range of Motion, Non-Tender, No Pedal Edema, Normal Capillary Refill Peripheral Pulses: 2+: Radial (L), Radial (R), Posterior Tibial (L), Posterior Tibial (R) Skin: Warm, Dry, Intact Neurological: No New Focal Deficit Psy/Mental Status: Alert, Normal Affect, Normal Mood - Problem List Review Problem List Initiated/Reviewed/Updated: Yes - My Orders Last 24 Hours: My Active Orders 03/31/17 12:00 Warfarin [Coumadin] 5 mg PO DAILY@1200 - Plan Plan:: This patient is a 71 year old female that was seen in the ER last night and admitted. She was admitted with UTI and renal insufficiency, and abd pain. Patient today reports she has some mild improvement in feeling better. She reports her adbominal area still hurts, but does not hurt as bad. The patient denies ford, dizziness, v, d, f, cp, soa, bowel changes. She does report she is now again leaking urine which is near her baseline of urine production. Last night CR was 2.0, today is 1.7. yesterday her BUN was 19, today is 15. Will keep admitted with abx treatment and fluids.
[2017-03-31] MEDS: Warfarin 5 MG Tab PO SCH (12:10)
[2017-03-31] MEDS ORDERED: cefTRIAXone 1 GM Vial IVPUSH SCH (21:00)
[2017-04-01] MEDS: Sodium Chloride 0.9% 1,000 ML IV SCH ×3 (07:32→23:48)
[2017-04-01] MEDS: Diltiazem 120 MG Cap.CD PO SCH (07:46)
[2017-04-01] MEDS: Potassium Chloride 10 MEQ Tab.ER PO SCH ×3 (07:46→17:47)
[2017-04-01] MEDS: Metoprolol Succinate 100 MG Tab.ER PO SCH (07:47)
[2017-04-01] MEDS: Formoterol/Mometasone 200-5 MCG 8.8 GM Inhaler IH SCH ×2 (07:47→20:11)
[2017-04-01] MEDS: atorvaSTATin 20 MG Tab PO SCH (07:47)
[2017-04-01] MEDS: Levothyroxine 100 MCG Tab PO SCH (07:48)
[2017-04-01] MEDS: KETOTIFEN FUMARATE OP SCH ×2 (07:48→20:11)
--- NOTE | 2017-04-01 09:37 | PN ---
DATE: 04/01/2017 S: Katharine Zuñiga has significant UTI. Her complaints this morning are lower abdominal pain, belching, and heartburn. She has history of peptic ulcer in the past. O: NECK: Supple. CHEST: Clear. CARDIAC: Sounds are good. ABDOMEN: Midepigastric tenderness, left lower quadrant tenderness. Bowel sounds are good. ASSESSMENT: 1. URINARY TRACT INFECTION WITH GRAM-NEGATIVE RODS, HOPEFULLY SENSITIVE TO ROCEPHIN. 2. PROBABLE RECURRENT PEPTIC ULCER DISEASE. 3. MILD HYPOKALEMIA. P: We will monitor all blood work and give her some IV Protonix. MARIALUISA/SHOAIB /[id number]
[2017-04-01] MEDS: Aspirin 81 MG Tab.EC PO SCH (10:30)
[2017-04-01] MEDS: Pantoprazole 40 MG Vial IVPUSH SCH (10:30)
[2017-04-01] MEDS: Warfarin 5 MG Tab PO SCH (16:12)
[2017-04-01] MEDS ORDERED: Aspirin 81 MG Tab.EC PO SCH (20:00)
[2017-04-01] MEDS: cefTRIAXone 1 GM Vial IVPUSH SCH (20:08)
[2017-04-01] MEDS: Acetaminophen 325 MG Tab PO PRN (22:21)
[2017-04-02] MEDS: Temazepam 15 MG Cap PO PRN (03:08)
[2017-04-02] MEDS: Levothyroxine 100 MCG Tab PO SCH (06:29)
[2017-04-02 07:41] LABS: CHLORIDE,CL 107 mEq/L (98-106); SODIUM,NA 144 mEq/L (136-145)
[2017-04-02] MEDS: Aspirin 81 MG Tab.EC PO SCH (08:14)
[2017-04-02] MEDS: Pantoprazole 40 MG Vial IVPUSH SCH (08:14)
[2017-04-02] MEDS: atorvaSTATin 20 MG Tab PO SCH (08:14)
[2017-04-02] MEDS: Formoterol/Mometasone 200-5 MCG 8.8 GM Inhaler IH SCH ×2 (08:16→20:12)
[2017-04-02] MEDS: Diltiazem 120 MG Cap.CD PO SCH (08:17)
[2017-04-02] MEDS: Potassium Chloride 10 MEQ Tab.ER PO SCH (08:18)
[2017-04-02] MEDS: KETOTIFEN FUMARATE OP SCH ×2 (08:18→20:12)
[2017-04-02] MEDS: Metoprolol Succinate 100 MG Tab.ER PO SCH (08:19)
[2017-04-02] MEDS: Potassium Chloride 40 MEQ in Premix Bag 1 BAG IV SCH ×2 (09:34→23:24)
[2017-04-02] MEDS: Potassium Chloride 10% 20 MEQ/15 ML Soln 15 ML UD Cup PO SCH ×2 (09:34→17:27)
[2017-04-02] MEDS: Dextrose 5%-0.45% NaCl 1,000 ML IV SCH ×2 (09:36→23:24)
[2017-04-02] MEDS: Warfarin 5 MG Tab PO SCH (12:02)
--- NOTE | 2017-04-02 13:42 | PN ---
DATE: 04/02/2017 S: Katharine Zuñiga has some acute UTI sensitive to what she is on. She was having some nausea yesterday, started some IV Protonix. She said she feels much better, less nausea. O: NECK: Supple. CHEST: Clear. CARDIAC: Regular. ABDOMEN: Soft. ASSESSMENT: 1. URINARY TRACT INFECTION. 2. HYPOKALEMIA. P: We will correct that with IV fluids today and oral potassium. MARIALUISA/SHOAIB /[id number]
[2017-04-02] MEDS: cefTRIAXone 1 GM Vial IVPUSH SCH (20:12)
[2017-04-02] MEDS: Acetaminophen 325 MG Tab PO PRN (23:22)
[2017-04-03] MEDS: Temazepam 15 MG Cap PO PRN (01:25)
[2017-04-03] MEDS: Levothyroxine 100 MCG Tab PO SCH (06:07)
[2017-04-03 07:18] LABS: CHLORIDE,CL 108 mEq/L (98-106); SODIUM,NA 143 mEq/L (136-145)
[2017-04-03] MEDS ORDERED: Potassium Chloride 10 MEQ Tab.ER PO SCH (08:00)
[2017-04-03] MEDS: atorvaSTATin 20 MG Tab PO SCH (08:46)
[2017-04-03] MEDS: Pantoprazole 40 MG Vial IVPUSH SCH (08:46)
[2017-04-03] MEDS: Metoprolol Succinate 100 MG Tab.ER PO SCH (08:46)
[2017-04-03 08:47] VITALS: BP 154/73
[2017-04-03] MEDS: Aspirin 81 MG Tab.EC PO SCH (08:47)
[2017-04-03] MEDS: Diltiazem 120 MG Cap.CD PO SCH (08:47)
[2017-04-03] MEDS: Formoterol/Mometasone 200-5 MCG 8.8 GM Inhaler IH SCH (08:49)
[2017-04-03] MEDS: KETOTIFEN FUMARATE OP SCH (08:49)
--- NOTE | 2017-04-03 10:02 | DISCH ---
HOSPITAL COURSE: This is an elderly white female who came in with moderate severe lower abdominal pain from the UTI. CT of the abdomen was performed which did not show any diverticulitis or any other acute changes. Started on intravenous antibiotics. She developed some nausea. She had a history of peptic ulcer disease. So I started her on IV Protonix, that seemed to resolve that. PHYSICAL EXAMINATION: At the time of discharge, NECK: Supple. CHEST: Clear. CARDIAC: Regular. ABDOMEN: Soft. EXTREMITIES: Remarkable. During her stay here, she did develop some hypokalemia which was corrected with IV and oral potassium. LABORATORY DATA: Labs here at the hospital, a urine culture grew gram-negative rods, sensitive to Ceftin. INR was adequate for a pulmonary emboli. Her potassium did go down to 2.7; at the time of discharge, it was 3.5. Creatinine was 2 on admission, went down to 0.7 prior to discharge. Magnesium was a little bit low, so we will put her on some oral magnesium at home. C-reactive protein is 1.7. Urinalysis was positive. DISPOSITION: The patient is now discharged home. We will see her back in the clinic in 1 week. INR, panel-8, and urine. DISCHARGE MEDICATIONS: Home medications plus Protonix 40 mg daily for 30 days, Ceftin 250 p.o. b.i.d. for 7 days. DISCHARGE DIAGNOSIS: 1. URINARY TRACT INFECTION WITH ACUTE RENAL INSUFFICIENCY. 2. HYPOKALEMIA, CORRECTED. 3. PULMONARY EMBOLUS. 4. HYPERTENSION. 5. HYPERLIPIDEMIA. 6. HYPOTHYROIDISM. MARIALUISA/SHOAIB /[id number]
[2017-04-03] MEDS: Warfarin 5 MG Tab PO SCH (12:38)
[2017-04-03] MEDS: Potassium Chloride 10% 20 MEQ/15 ML Soln 15 ML UD Cup PO SCH (12:44)
== END 2017-04-03 16:30 | disposition home or self-care (01) | DRG 463 ==
LOC: CC.ED 21:48 → CC.MS 23:15 → UNDOADMIN 23:50 → CC.MS 03-31 00:02 → UNDOADMIN 03-31 00:02
PROVIDERS: ADMIT Nurse Practitioner; ATTEND General Practice
DX: N39.0 Urinary tract infection, site not specified (principal); N17.9 Acute kidney failure, unspecified; B96.89 Other specified bacterial agents as the cause of diseases classified elsewhere; E87.6 Hypokalemia; I48.91 Unspecified atrial fibrillation; J45.909 Unspecified asthma, uncomplicated; R32 Unspecified urinary incontinence; F41.9 Anxiety disorder, unspecified; I26.99 Other pulmonary embolism without acute cor pulmonale; I10 Essential (primary) hypertension; E78.5 Hyperlipidemia, unspecified; E03.9 Hypothyroidism, unspecified; Z88.1 Allergy status to other antibiotic agents; Z88.6 Allergy status to analgesic agent; Z88.8 Allergy status to other drugs, medicaments and biological substances; Z79.01 Long term (current) use of anticoagulants; Z79.82 Long term (current) use of aspirin; Z79.899 Other long term (current) drug therapy
CPT/HCPCS: 36415; 51701; 74176; 80048; 80053; 81001; 82150; 82962; 83735; 85025; 85610; 86140; 87086; 87088; 87186; 96361; 96374; 96375; 99284; A9270-GY; C9113; J0696; J2405; J3480; J7030; J7042

== ENCOUNTER 2017-08-13 10:47 | Inpatient (IN) | payer BC, MEDICARE ==
[2017-08-13] MEDS ORDERED: Sodium Chloride 0.9% 10 ML Syringe FLUSH PRN (11:34)
[2017-08-13] MEDS ORDERED: Magnesium Hydroxide 400 MG/5 ML Susp 30 ML Cup PO PRN (11:34)
[2017-08-13] MEDS ORDERED: Acetaminophen 325 MG Tab PO PRN (11:34)
[2017-08-13] MEDS ORDERED: Temazepam 15 MG Cap PO PRN (11:34)
[2017-08-13] MEDS ORDERED: Calcium Carbonate 500 MG Tab.Chew PO PRN (11:41)
[2017-08-13] MEDS ORDERED: KETOTIFEN FUMARATE OP PRN (11:42)
[2017-08-13] MEDS ORDERED: Albuterol/Ipratropium 3.0-0.5 MG/3 ML Neb Soln NEB PRN (11:42)
[2017-08-13] MEDS ORDERED: Albuterol 8 GM Inhaler INH PRN (11:42)
[2017-08-13] MEDS: fentaNYL 100 MCG/2 ML SDV IVPUSH PRN ×2 (11:50→19:51)
[2017-08-13 12:19] LABS: CHLORIDE,CL 105 mEq/L (98-106); SODIUM,NA 141 mEq/L (136-145)
[2017-08-13] MEDS ORDERED: Phytonadione 10 MG in Sodium Chloride 0.9% 50 ML IV ONE (14:10)
[2017-08-13] MEDS ORDERED: Phytonadione ORAL 2.5mg/2.5ml Soln Simple Syrup U/D PO ONE ×2 (14:30→15:00)
[2017-08-13] MEDS: Acetaminophen/HYDROcodone 325-5 MG Tab PO PRN ×2 (14:41→22:12)
[2017-08-13] MEDS: Aspirin 81 MG Tab.EC PO SCH (19:50)
[2017-08-13] MEDS: Formoterol/Mometasone 200-5 MCG 8.8 GM Inhaler IH SCH (19:50)
[2017-08-13] MEDS: Cholecalciferol (Vitamin D3) 1,000 Unit Tab PO SCH (19:50)
[2017-08-13] MEDS: Potassium Chloride 10 MEQ Tab.ER PO SCH (19:51)
[2017-08-13] MEDS: LORazepam 0.5 MG Tab PO PRN (22:12)
[2017-08-14] MEDS: Acetaminophen/HYDROcodone 325-5 MG Tab PO PRN ×3 (04:38→17:47)
[2017-08-14] MEDS: fentaNYL 100 MCG/2 ML SDV IVPUSH PRN ×2 (08:20→19:40)
[2017-08-14] MEDS: cefTRIAXone 1 GM Vial IVPUSH SCH (08:23)
[2017-08-14] MEDS: Levothyroxine 100 MCG Tab PO SCH (08:29)
[2017-08-14] MEDS: Potassium Chloride 10 MEQ Tab.ER PO SCH ×2 (08:30→19:19)
[2017-08-14] MEDS: Diltiazem 120 MG Cap.CD PO SCH (08:30)
[2017-08-14] MEDS: Metoprolol Succinate 100 MG Tab.ER PO SCH (08:30)
[2017-08-14] MEDS: atorvaSTATin 20 MG Tab PO SCH (08:32)
[2017-08-14] MEDS: Folic Acid 1 MG Tab PO SCH (08:32)
[2017-08-14] MEDS: Formoterol/Mometasone 200-5 MCG 8.8 GM Inhaler IH SCH ×2 (08:32→19:21)
--- NOTE | 2017-08-14 11:48 | PN ---
DATE: 08/14/2017 S: Katharine Zuñiga came in with severe back pain and right hip pain. Could not ambulate, now started on IV pain medication. MRIs were done of lumbar spine and pelvis. O: NECK: Supple. CHEST: Clear. CARDIAC: The grade 2-3 murmur which she has had before. EXTREMITIES: Very difficulty with straight leg raise in the right. ASSESSMENT: 1. PROBABLE HERNIATED DISK. 2. URINARY TRACT INFECTION. WE WILL START ROCEPHIN. WE ARE GOING TO MONITOR INR CLOSELY STARTING TODAY. DIAGNOSES: 1. Herniated disk. 2. History of pulmonary emboli. 3. Urinary tract infection. 4. Hypertension. MARIALUISA/SHOAIB /[id number]
[2017-08-14] MEDS ORDERED: Warfarin 5 MG Tab PO SCH (12:00)
[2017-08-14] MEDS: Cholecalciferol (Vitamin D3) 1,000 Unit Tab PO SCH (19:19)
[2017-08-14] MEDS: Aspirin 81 MG Tab.EC PO SCH (19:20)
[2017-08-14] MEDS: LORazepam 0.5 MG Tab PO PRN (21:03)
[2017-08-15] MEDS: Acetaminophen/HYDROcodone 325-5 MG Tab PO PRN ×4 (00:01→18:54)
[2017-08-15] MEDS: cefTRIAXone 1 GM Vial IVPUSH SCH (07:43)
[2017-08-15] MEDS: fentaNYL 100 MCG/2 ML SDV IVPUSH PRN ×2 (07:53→20:06)
[2017-08-15] MEDS: Folic Acid 1 MG Tab PO SCH (07:59)
[2017-08-15] MEDS: Potassium Chloride 10 MEQ Tab.ER PO SCH ×3 (07:59→20:06)
[2017-08-15] MEDS: Levothyroxine 100 MCG Tab PO SCH (08:00)
[2017-08-15] MEDS: Metoprolol Succinate 100 MG Tab.ER PO SCH (08:00)
[2017-08-15] MEDS: atorvaSTATin 20 MG Tab PO SCH (08:00)
[2017-08-15] MEDS: Diltiazem 120 MG Cap.CD PO SCH (08:01)
[2017-08-15] MEDS: Formoterol/Mometasone 200-5 MCG 8.8 GM Inhaler IH SCH ×2 (08:02→20:05)
--- NOTE | 2017-08-15 09:12 | PN ---
DATE: 08/15/2017 S: Katharine Zuñiga came in with [id number] back pain. Just reviewed her MRI of her lumbar spine, pelvis, and back, question insufficiency fracture of the coccyx, lumbar compression fracture less than 40%. O: NECK: Supple. CHEST: Clear. CARDIAC: Sounds were good. Her pain is much better. She has walked with physical therapy. ASSESSMENT: LUMBAR COMPRESSION FRACTURE, INSUFFICIENCY FRACTURE OF THE COCCYX. P: PT, pain control. MRI pelvis pending. MARIALUISA/SHOAIB /[id number]
[2017-08-15] MEDS: Cyclobenzaprine 10 MG Tab PO PRN ×2 (11:24→20:20)
[2017-08-15] MEDS: Cholecalciferol (Vitamin D3) 1,000 Unit Tab PO SCH (20:05)
[2017-08-15] MEDS: Aspirin 81 MG Tab.EC PO SCH (20:05)
[2017-08-15] MEDS: LORazepam 0.5 MG Tab PO PRN (21:24)
[2017-08-16] MEDS: Acetaminophen/HYDROcodone 325-5 MG Tab PO PRN (00:57)
[2017-08-16] MEDS: fentaNYL 100 MCG/2 ML SDV IVPUSH PRN (07:41)
[2017-08-16] MEDS: cefTRIAXone 1 GM Vial IVPUSH SCH (07:43)
[2017-08-16] MEDS: Levothyroxine 100 MCG Tab PO SCH (07:45)
[2017-08-16] MEDS: Potassium Chloride 10 MEQ Tab.ER PO SCH (07:46)
[2017-08-16] MEDS: Folic Acid 1 MG Tab PO SCH (07:46)
[2017-08-16] MEDS: atorvaSTATin 20 MG Tab PO SCH (07:46)
[2017-08-16] MEDS: Diltiazem 120 MG Cap.CD PO SCH (07:47)
[2017-08-16] MEDS: Metoprolol Succinate 100 MG Tab.ER PO SCH (07:48)
[2017-08-16 07:49] VITALS: BP 153/75
[2017-08-16] MEDS: Cyclobenzaprine 10 MG Tab PO PRN (07:49)
[2017-08-16] MEDS: Formoterol/Mometasone 200-5 MCG 8.8 GM Inhaler IH SCH (07:50)
--- NOTE | 2017-08-16 08:48 | DISCH ---
HOSPITAL COURSE: Katharine Zuñiga is an elderly white female, who came in with severe back pain, admitted to the hospital, started on IV pain medications. Turned out to have a UTI, started on intravenous antibiotics. We did do an MRI of her lumbar spine, which did show mild compression fracture. MRI of the pelvis shows insufficiency fractures of both sacroiliac areas and coccyx. On examination today, she has still severe pain, requiring IV medications. Lab here in the hospital. She is on Coumadin for pulmonary emboli and her INR is a bit elevated still, so we will continue to monitor them. C-reactive protein went from 3.3 to 1.8. CBC looked normal other than some mild anemia, which she has had before. Urinalysis positive with nitrates. DISPOSITION: The patient now discharged to swing bed for pain control, physical therapy, and appropriate discharge medications. DISCHARGE DIAGNOSIS: 1. COMPRESSION FRACTURE. 2. SACRAL INSUFFICIENCY FRACTURES. 3. HISTORY OF PULMONARY EMBOLI. 4. URINARY TRACT INFECTION. 5. FOLIC ACID DEFICIENCY. 6. HYPOTHYROIDISM. 7. HYPERTENSION. 8. HYPERLIPIDEMIA. MARIALUISA/SHOAIB /[id number]
[2017-08-16] MEDS ORDERED: Warfarin 2.5 MG Tab PO SCH (12:00)
[2017-08-16] MEDS ORDERED: Potassium Chloride 10 MEQ Tab.ER PO SCH (17:30)
== END 2017-08-16 08:19 | disposition swing bed (61) | DRG 861 ==
LOC: CC.MS 10:47 → UNDOADMIN 10:47 → CC.MS 11:27
PROVIDERS: ADMIT General Practice; ATTEND General Practice
DX: G89.11 Acute pain due to trauma (principal); S32.009A Unspecified fracture of unspecified lumbar vertebra, initial encounter for closed fracture; S32.2XXA Fracture of coccyx, initial encounter for closed fracture; S32.10XA Unspecified fracture of sacrum, initial encounter for closed fracture; W19.XXXA Unspecified fall, initial encounter; N39.0 Urinary tract infection, site not specified; M19.90 Unspecified osteoarthritis, unspecified site; E78.5 Hyperlipidemia, unspecified; I10 Essential (primary) hypertension; E53.8 Deficiency of other specified B group vitamins; R35.0 Frequency of micturition; K21.9 Gastro-esophageal reflux disease without esophagitis; M85.80 Other specified disorders of bone density and structure, unspecified site; D51.0 Vitamin B12 deficiency anemia due to intrinsic factor deficiency; R06.02 Shortness of breath; M51.26 Other intervertebral disc displacement, lumbar region; Z86.711 Personal history of pulmonary embolism; Z79.01 Long term (current) use of anticoagulants; R79.1 Abnormal coagulation profile; E03.9 Hypothyroidism, unspecified; Z88.1 Allergy status to other antibiotic agents; Z88.8 Allergy status to other drugs, medicaments and biological substances; Z79.82 Long term (current) use of aspirin; Z79.899 Other long term (current) drug therapy
CPT/HCPCS: 36415; 71046; 72148; 72195; 80053; 81001; 83735; 83880; 85025; 85379; 85610; 85651; 86140; 87086; 87088; 87186; 93005; 97110-GP; 97161-GP; 97530-GP; A9270-GY; J0696; J3010

== ENCOUNTER 2017-08-16 08:20 | Inpatient (IN) | payer BC, MEDICARE ==
[2017-08-16] MEDS ORDERED: Calcium Carbonate 500 MG Tab.Chew PO PRN (08:42)
[2017-08-16] MEDS ORDERED: Sodium Chloride 0.9% 10 ML Syringe FLUSH PRN ×2 (08:42)
[2017-08-16] MEDS ORDERED: Magnesium Hydroxide 400 MG/5 ML Susp 30 ML Cup PO PRN (08:42)
[2017-08-16] MEDS ORDERED: Acetaminophen 325 MG Tab PO PRN (08:42)
[2017-08-16] MEDS ORDERED: Albuterol/Ipratropium 3.0-0.5 MG/3 ML Neb Soln NEB PRN (08:42)
[2017-08-16] MEDS ORDERED: Albuterol 8 GM Inhaler INH PRN (08:42)
[2017-08-16] MEDS: Acetaminophen/HYDROcodone 325-5 MG Tab PO PRN ×3 (10:21→23:28)
[2017-08-16] MEDS ORDERED: Warfarin 2.5 MG Tab PO SCH (12:00)
[2017-08-16] MEDS: Cyclobenzaprine 10 MG Tab PO PRN ×2 (15:09→23:31)
[2017-08-16] MEDS: Potassium Chloride 10 MEQ Tab.ER PO SCH (17:25)
[2017-08-16] MEDS: Cholecalciferol (Vitamin D3) 1,000 Unit Tab PO SCH (19:38)
[2017-08-16] MEDS: Aspirin 81 MG Tab.EC PO SCH (19:39)
[2017-08-16] MEDS: Formoterol/Mometasone 200-5 MCG 8.8 GM Inhaler IH SCH (19:40)
[2017-08-16] MEDS: fentaNYL 100 MCG/2 ML SDV IVPUSH PRN (19:47)
[2017-08-16] MEDS: LORazepam 0.5 MG Tab PO PRN (21:53)
[2017-08-17] MEDS: Acetaminophen/HYDROcodone 325-5 MG Tab PO PRN ×3 (05:34→21:34)
[2017-08-17] MEDS: Diltiazem 120 MG Cap.CD PO SCH (07:57)
[2017-08-17] MEDS: Formoterol/Mometasone 200-5 MCG 8.8 GM Inhaler IH SCH ×2 (07:58→19:52)
[2017-08-17] MEDS: atorvaSTATin 20 MG Tab PO SCH (07:59)
[2017-08-17] MEDS: Folic Acid 1 MG Tab PO SCH (07:59)
[2017-08-17] MEDS: Levothyroxine 100 MCG Tab PO SCH (07:59)
[2017-08-17] MEDS: Metoprolol Succinate 100 MG Tab.ER PO SCH (08:00)
[2017-08-17] MEDS: Potassium Chloride 10 MEQ Tab.ER PO SCH ×2 (08:02→17:18)
[2017-08-17] MEDS: fentaNYL 100 MCG/2 ML SDV IVPUSH PRN (08:12)
[2017-08-17] MEDS: cefTRIAXone 1 GM Vial IVPUSH SCH (08:13)
[2017-08-17] MEDS: Cyclobenzaprine 10 MG Tab PO PRN (16:35)
[2017-08-17] MEDS: Cholecalciferol (Vitamin D3) 1,000 Unit Tab PO SCH (19:51)
[2017-08-17] MEDS: Aspirin 81 MG Tab.EC PO SCH (19:52)
[2017-08-17] MEDS: LORazepam 0.5 MG Tab PO PRN (22:54)
[2017-08-18] MEDS: Cyclobenzaprine 10 MG Tab PO PRN ×3 (05:00→23:16)
[2017-08-18] MEDS: Acetaminophen/HYDROcodone 325-5 MG Tab PO PRN ×3 (06:43→19:41)
[2017-08-18] MEDS: Levothyroxine 100 MCG Tab PO SCH (08:14)
[2017-08-18] MEDS: Diltiazem 120 MG Cap.CD PO SCH (08:14)
[2017-08-18] MEDS: Metoprolol Succinate 100 MG Tab.ER PO SCH (08:19)
[2017-08-18] MEDS: Potassium Chloride 10 MEQ Tab.ER PO SCH ×2 (08:19→17:18)
[2017-08-18] MEDS: Folic Acid 1 MG Tab PO SCH (08:19)
[2017-08-18] MEDS: atorvaSTATin 20 MG Tab PO SCH (08:19)
[2017-08-18] MEDS: Formoterol/Mometasone 200-5 MCG 8.8 GM Inhaler IH SCH ×2 (08:20→19:42)
[2017-08-18] MEDS: cefTRIAXone 1 GM Vial IVPUSH SCH (08:20)
[2017-08-18] MEDS: Cholecalciferol (Vitamin D3) 1,000 Unit Tab PO SCH (19:42)
[2017-08-18] MEDS: Aspirin 81 MG Tab.EC PO SCH (19:42)
[2017-08-18] MEDS: LORazepam 0.5 MG Tab PO PRN (23:16)
[2017-08-19] MEDS: Acetaminophen/HYDROcodone 325-5 MG Tab PO PRN ×4 (02:01→20:30)
[2017-08-19] MEDS: Diltiazem 120 MG Cap.CD PO SCH (08:15)
[2017-08-19] MEDS: Levothyroxine 100 MCG Tab PO SCH (08:15)
[2017-08-19] MEDS: atorvaSTATin 20 MG Tab PO SCH (08:15)
[2017-08-19] MEDS: Folic Acid 1 MG Tab PO SCH (08:15)
[2017-08-19] MEDS: Potassium Chloride 10 MEQ Tab.ER PO SCH ×2 (08:15→17:32)
[2017-08-19] MEDS: Metoprolol Succinate 100 MG Tab.ER PO SCH (08:16)
[2017-08-19] MEDS: cefTRIAXone 1 GM Vial IVPUSH SCH (08:18)
[2017-08-19] MEDS: Formoterol/Mometasone 200-5 MCG 8.8 GM Inhaler IH SCH ×2 (08:18→19:54)
[2017-08-19] MEDS: Warfarin 5 MG Tab PO SCH (08:25)
[2017-08-19] MEDS: Cyclobenzaprine 10 MG Tab PO PRN ×2 (11:03→17:32)
[2017-08-19] MEDS: Aspirin 81 MG Tab.EC PO SCH (19:54)
[2017-08-19] MEDS: Cholecalciferol (Vitamin D3) 1,000 Unit Tab PO SCH (19:55)
[2017-08-19] MEDS: LORazepam 0.5 MG Tab PO PRN (22:54)
[2017-08-20] MEDS: Acetaminophen/HYDROcodone 325-5 MG Tab PO PRN ×4 (02:50→22:50)
[2017-08-20] MEDS: atorvaSTATin 20 MG Tab PO SCH (09:43)
[2017-08-20] MEDS: Folic Acid 1 MG Tab PO SCH (09:43)
[2017-08-20] MEDS: Diltiazem 120 MG Cap.CD PO SCH (09:43)
[2017-08-20] MEDS: Potassium Chloride 10 MEQ Tab.ER PO SCH ×2 (09:43→16:32)
[2017-08-20] MEDS: Warfarin 5 MG Tab PO SCH (09:43)
[2017-08-20] MEDS: cefTRIAXone 1 GM Vial IVPUSH SCH (09:43)
[2017-08-20] MEDS: Formoterol/Mometasone 200-5 MCG 8.8 GM Inhaler IH SCH ×2 (09:43→19:44)
[2017-08-20] MEDS: Metoprolol Succinate 100 MG Tab.ER PO SCH (09:44)
[2017-08-20] MEDS: Levothyroxine 100 MCG Tab PO SCH (09:44)
[2017-08-20] MEDS ORDERED: fentaNYL 25 MCG/HR Transdermal Patch TRDERM SCH (10:45)
[2017-08-20] MEDS: Cholecalciferol (Vitamin D3) 1,000 Unit Tab PO SCH (19:43)
[2017-08-20] MEDS: Aspirin 81 MG Tab.EC PO SCH (19:43)
[2017-08-20] MEDS: Cyclobenzaprine 10 MG Tab PO PRN (19:43)
[2017-08-21] MEDS: LORazepam 0.5 MG Tab PO PRN (00:02)
[2017-08-21] MEDS: Acetaminophen/HYDROcodone 325-5 MG Tab PO PRN ×6 (00:03→21:37)
[2017-08-21] MEDS: atorvaSTATin 20 MG Tab PO SCH (07:21)
[2017-08-21] MEDS: Potassium Chloride 10 MEQ Tab.ER PO SCH ×2 (07:21→16:40)
[2017-08-21] MEDS: Folic Acid 1 MG Tab PO SCH (07:21)
[2017-08-21] MEDS: Levothyroxine 100 MCG Tab PO SCH (07:22)
[2017-08-21] MEDS: Formoterol/Mometasone 200-5 MCG 8.8 GM Inhaler IH SCH ×2 (07:37→20:33)
[2017-08-21] MEDS: Warfarin 5 MG Tab PO SCH (07:40)
[2017-08-21] MEDS: Diltiazem 120 MG Cap.CD PO SCH (07:41)
[2017-08-21] MEDS: Metoprolol Succinate 100 MG Tab.ER PO SCH (07:42)
[2017-08-21] MEDS ORDERED: Warfarin 2.5 MG Tab PO ONE (09:30)
[2017-08-21] MEDS ORDERED: Warfarin 5 MG Tab PO ONE (12:00)
[2017-08-21] MEDS: Cyclobenzaprine 10 MG Tab PO PRN (17:32)
[2017-08-21] MEDS: Cholecalciferol (Vitamin D3) 1,000 Unit Tab PO SCH (20:32)
[2017-08-21] MEDS: Aspirin 81 MG Tab.EC PO SCH (20:32)
[2017-08-22] MEDS: LORazepam 0.5 MG Tab PO PRN ×2 (00:04→23:38)
[2017-08-22] MEDS: Cyclobenzaprine 10 MG Tab PO PRN ×2 (01:41→20:09)
[2017-08-22] MEDS: Acetaminophen/HYDROcodone 325-5 MG Tab PO PRN ×4 (03:10→22:48)
[2017-08-22] MEDS: Potassium Chloride 10 MEQ Tab.ER PO SCH ×2 (07:38→17:17)
[2017-08-22] MEDS: atorvaSTATin 20 MG Tab PO SCH (07:38)
[2017-08-22] MEDS: Folic Acid 1 MG Tab PO SCH (07:38)
[2017-08-22] MEDS: Levothyroxine 100 MCG Tab PO SCH (07:39)
[2017-08-22] MEDS: Diltiazem 120 MG Cap.CD PO SCH (07:45)
[2017-08-22] MEDS: Metoprolol Succinate 100 MG Tab.ER PO SCH (07:46)
[2017-08-22] MEDS: Formoterol/Mometasone 200-5 MCG 8.8 GM Inhaler IH SCH ×2 (07:48→20:05)
[2017-08-22] MEDS: Warfarin 5 MG Tab PO SCH (08:23)
[2017-08-22] MEDS ORDERED: Warfarin 5 MG Tab PO SCH (12:00)
[2017-08-22] MEDS: Aspirin 81 MG Tab.EC PO SCH (20:05)
[2017-08-22] MEDS: Cholecalciferol (Vitamin D3) 1,000 Unit Tab PO SCH (20:05)
[2017-08-23] MEDS: Acetaminophen/HYDROcodone 325-5 MG Tab PO PRN ×2 (02:52→07:43)
[2017-08-23 07:27] VITALS: BP 141/69
[2017-08-23] MEDS: Metoprolol Succinate 100 MG Tab.ER PO SCH (07:41)
[2017-08-23] MEDS: Folic Acid 1 MG Tab PO SCH (07:41)
[2017-08-23] MEDS: Levothyroxine 100 MCG Tab PO SCH (07:42)
[2017-08-23] MEDS: Warfarin 5 MG Tab PO SCH (07:42)
[2017-08-23] MEDS: Potassium Chloride 10 MEQ Tab.ER PO SCH (07:42)
[2017-08-23] MEDS: Diltiazem 120 MG Cap.CD PO SCH (07:43)
[2017-08-23] MEDS: atorvaSTATin 20 MG Tab PO SCH (07:44)
[2017-08-23] MEDS: Formoterol/Mometasone 200-5 MCG 8.8 GM Inhaler IH SCH (07:44)
--- NOTE | 2017-08-23 07:54 | PCM.DCSUM1 ---
Discharge Summary - Hospital Course HPI Initial Comments: Katharine is a 72 year old female who was admitted to the hospital on 08/13/2017 for severe low back pain caused by lumbar compression fractures and sacral insufficiency fractures. She was started on IV and oral pain medications for adequate pain control. She was having difficulty ambulating due to pain. MRI lumbar spine showed mild compression fractures and MRI pelvis showed insufficiency fractures of both sacroiliac areas and coccyx. Throughout hospital stay, pain was managed with IV fentanyl, Gall[place], and flexeril. A transdermal fentanyl patch was added later as patient continued to have episodes of severe pain with activity. Physical therapy was consulted and worked with patient throughout hospital and swing bed stay. At time of discharge , patient had continued pain with activity, but she was ambulatory. She will be discharged home on same pain medication regimen. She was also found to have a UTI. Was treated with course of rocephin. Will follow up out patient with repeat UA to ensure resolution of UTI. INR was initialyl supratherapeutic, but has since been controlled. INR on day of discharge 2.89. Patient will take 2.5 mg Coumadin daily and recheck INR prior to f/u appointment with Dr. Malagon on Saturday08/27/2017. She will be discharged home today. - Discharge Data Discharge Date: 08/23/17 Discharge Disposition: Home, Self-Care 01 Condition: Good - Discharge Diagnosis/Problem(s) (1) Hyperlipidemia SNOMED Code(s): 90648072 ICD Code: E78.5 - HYPERLIPIDEMIA, UNSPECIFIED Status: Chronic Qualifiers: Hyperlipidemia type: unspecified Qualified Code(s): E78.5 - Hyperlipidemia , unspecified (2) Hypothyroidism SNOMED Code(s): 84687174 ICD Code: E03.9 - HYPOTHYROIDISM, UNSPECIFIED Status: Chronic Qualifiers: Hypothyroidism type: unspecified Qualified Code(s): E03.9 - Hypothyroidism , unspecified (3) Compression fracture of lumbar vertebra SNOMED Code(s): 044818400 ICD Code: S32.000A - WEDGE COMPRESSION FRACTURE OF UNSP LUMBAR VERTEBRA, INIT Status: Acute Qualifiers: Encounter type: initial encounter Fracture type: closed (4) History of pulmonary embolism SNOMED Code(s): 906777728 ICD Code: Z86.711 - PERSONAL HISTORY OF PULMONARY EMBOLISM Status: Chronic (5) Sacral insufficiency fracture SNOMED Code(s): 273376587 ICD Code: M84.48XA - PATHOLOGICAL FRACTURE, OTHER SITE, INIT ENCNTR FOR FRACTURE Status: Acute Qualifiers: Encounter type: initial encounter Qualified Code(s): M84.48XA - Pathological fracture, other site, initial encounter for fracture (6) UTI (urinary tract infection) SNOMED Code(s): 66548025 ICD Code: N39.0 - URINARY TRACT INFECTION, SITE NOT SPECIFIED Status: Acute Priority: High Qualifiers: Urinary tract infection type: site unspecified Hematuria presence: without hematuria Qualified Code(s): N39.0 - Urinary tract infection, site not specified (7) Hypertension SNOMED Code(s): 30075028 ICD Code: I10 - ESSENTIAL (PRIMARY) HYPERTENSION Status: Chronic Priority : Medium Qualifiers: Hypertension type: essential hypertension Qualified Code(s): I10 - Essential (primary) hypertension (8) Renal insufficiency SNOMED Code(s): 584316401, 316166536 ICD Code: N28.9 - DISORDER OF KIDNEY AND URETER, UNSPECIFIED Status: Chronic - Patient Summary/Data Consults: Consultations 08/16/17 08:42 PT Evaluation and Treatment [CONS] Routine - Patient Instructions Diet: Usual Diet as Tolerated Activity: As Tolerated Notify Provider of: Fever, Increased Pain, Swelling and Redness, Drainage, Nausea and/or Vomiting - Discharge Plan Prescriptions/Med Rec: Cyclobenzaprine [Flexeril] 10 mg PO TID PRN #30 tablet PRN Reason: Pain fentaNYL [Duragesic] 25 mcg TRDERM Q72H #20 patch Home Medications: Home Meds Levothyroxine [Synthroid] 100 mcg PO DAILY 01/04/14 [History] Metoprolol Succinate [Toprol Xl] 50 mg PO DAILY 01/04/14 [History] Acetaminophen [Tylenol] 650 mg PO Q6H PRN 12/11/14 [History] Aspirin 81 mg PO BEDTIME 12/11/14 [History] Cholecalciferol (Vitamin D3) [Vitamin D3] 5,000 units PO BEDTIME 12/11/14 [ History] Cyanocobalamin (Vitamin B-12) [Cyanocobalamin Injection] 2,000 mcg IM Q14D 12/11 [History] Sennosides/Docusate Sodium [Marina-Colace] 1 tab PO BID PRN 02/17/15 [History] Diltiazem HCl [Cartia Xt] 120 mg PO DAILY 09/01/16 [History] atorvaSTATin Calcium [Atorvastatin Calcium] 20 mg PO DAILY 09/01/16 [History] Albuterol Sulfate [Proair Hfa] 1 puff INH Q4H PRN 09/02/16 [History] Folic Acid 1 mg PO DAILY 09/02/16 [History] Potassium Chloride 20 meq PO BID 09/02/16 [History] Albuterol/Ipratropium [DuoNeb 3.0-0.5 MG/3 ML] 3 ml NEB QID PRN 09/25/16 [ History] Ketotifen Fumarate [Alaway] 1 drop OP BID PRN 09/25/16 [History] Acetaminophen/HYDROcodone [[place] 325-5 MG] 1 - 2 tab PO Q6H PRN 08/13/17 [ History] Budesonide/Formoterol [Symbicort 160-4.5 MCG] 1 puff INH BID 08/13/17 [History] Cranberry Extract [Cranberry] 2 tab PO BEDTIME 08/13/17 [History] LORazepam 1 mg PO BEDTIME PRN 08/13/17 [History] Warfarin [Coumadin] 2.5 mg PO DAILY 08/13/17 [History] Cyclobenzaprine [Flexeril] 10 mg PO TID PRN #30 tablet 08/23/17 [Rx] fentaNYL [Duragesic] 25 mcg TRDERM Q72H #20 patch 08/23/17 [Rx] Patient Handouts: Urinary Tract Infection, Adult, [id number], Hypertension, [id number], Vertebral Fracture, [id number] Referrals: Deni Malagon MD [Primary Care Provider] - - General Info Date of Service: 08/23/17 Admission Dx/Problem (Free Text: Compression Fracture Lumbar Spine Sacral Insufficiency UTI Hypertension Functional Status: Reports: Pain Controlled, Tolerating Diet, Ambulating, Urinating. Denies: New Symptoms - Review of Systems General: Reports: No Symptoms Pulmonary: Reports: No Symptoms Cardiovascular: Reports: No Symptoms Gastrointestinal: Reports: No Symptoms Musculoskeletal: Reports: Back Pain. Denies: Leg Pain Neurological: Reports: No Symptoms Psychiatric: Reports: No Symptoms - Patient Data Vitals - Most Recent: Last Vital Signs Temp 97.2 F 08/23/17 07:26 Pulse 70 08/23/17 07:43 Resp 20 08/23/17 07:26 BP 141/69 H 08/23/17 07:43 Pulse Ox 95 08/23/17 07:26 Weight - Most Recent: 217 lb 1.6 oz Lab Results - Last 24 hrs: Laboratory Results - last 24 hr 08/23/17 Range/Units 07:00 PT 27.8 H (9.7-12.3) SEC INR 2.89 H (0.92-1.18) Med Orders - Current: Current Medications Acetaminophen (Tylenol) 650 mg PO Q4H PRN PRN Reason: Pain (Mild 1-3)/fever Hydrocodone Bitart/Acetaminophen ([place] 325-5 Mg) 1 - 2 tab PO Q6H PRN PRN Reason: Pain Last Admin: 08/23/17 07:43 Dose: 1 tab Albuterol (Ventolin Hfa) 0 gm INH Q4H PRN PRN Reason: Dyspnea Albuterol/Ipratropium (Duoneb 3.0-0.5 Mg/3 Ml) 3 ml NEB QID PRN PRN Reason: Shortness of Breath Aspirin (Halfprin) 81 mg PO BEDTIME [facility] Last Admin: 08/22/17 20:05 Dose: 81 mg Atorvastatin Calcium (Lipitor) 20 mg PO DAILY [facility] Last Admin: 08/23/17 07:44 Dose: 20 mg Calcium Carbonate/Glycine (Tums) 500 mg PO QID PRN PRN Reason: Dyspepsia Cholecalciferol (Vitamin D3) 5,000 units PO BEDTIME [facility] Last Admin: 08/22/17 20:05 Dose: 5,000 units Cyclobenzaprine HCl (Flexeril) 10 mg PO TID PRN PRN Reason: Pain Last Admin: 08/22/17 20:09 Dose: 10 mg Diltiazem HCl (Cardizem Cd) 120 mg PO DAILY [facility] Last Admin: 08/23/17 07:43 Dose: 120 mg Fentanyl (Sublimaze) 50 mcg IVPUSH Q12H PRN PRN Reason: Pain Last Admin: 08/17/17 08:12 Dose: 50 mcg Fentanyl (Duragesic) 25 mcg TRDERM Q72H [facility] Last Admin: 08/20/17 11:05 Dose: 25 mcg Folic Acid (Folic Acid) 1 mg PO DAILY [facility] Last Admin: 08/23/17 07:41 Dose: 1 mg Levothyroxine Sodium (Synthroid) 100 mcg PO DAILY [facility] Last Admin: 08/23/17 07:42 Dose: 100 mcg Lorazepam (Ativan) 1 mg PO BEDTIME PRN PRN Reason: Sleep Last Admin: 08/22/17 23:38 Dose: 1 mg Magnesium Hydroxide (Milk Of Magnesia) 30 ml PO Q12H PRN PRN Reason: Constipation Metoprolol Succinate (Toprol Xl) 50 mg PO DAILY [facility] Last Admin: 08/23/17 07:41 Dose: 50 mg Mometasone Furoate/Formoterol Fumar (Dulera 200-5 Mcg) 2 puff IH BID [facility] Last Admin: 08/23/17 07:44 Dose: 2 puff Potassium Chloride (Klor-Con 10) 20 meq PO BIDMEALS [facility] Last Admin: 08/23/17 07:42 Dose: 20 meq Senna/Docusate Sodium (Senna Plus) 1 tab PO BID PRN PRN Reason: Constipation Sodium Chloride (Saline Flush) 10 ml FLUSH ASDIRECTED PRN PRN Reason: Keep Vein Open Warfarin Sodium (Coumadin) 2.5 mg PO TUFR [facility] Warfarin Sodium (Coumadin) 5 mg PO SUMOWETHSA [facility] Last Admin: 08/22/17 12:55 Dose: 5 mg Warfarin Sodium (Coumadin) 5 mg PO DAILY [facility] Last Admin: 08/23/17 07:42 Dose: 5 mg Discontinued Medications Ceftriaxone Sodium (Rocephin) 1 gm IVPUSH Q24H [facility] Last Admin: 08/20/17 09:43 Dose: Not Given Sodium Chloride (Saline Flush) 10 ml FLUSH ASDIRECTED PRN PRN Reason: Keep Vein Open Warfarin Sodium (Coumadin) 2.5 mg PO DAILY [facility] Last Admin: 08/21/17 07:43 Dose: Not Given Warfarin Sodium (Coumadin) 5 mg PO DAILY [facility] Last Admin: 08/21/17 07:40 Dose: 5 mg Warfarin Sodium (Coumadin) 7.5 mg PO ONETIME ONE Stop: 08/21/17 12:01 Warfarin Sodium (Coumadin) 2.5 mg PO ONETIME ONE Stop: 08/21/17 09:31 Last Admin: 03/28/18 09:31 Dose: 2.5 mg - Exam Quality Assessment: Reports: DVT Prophylaxis General: Reports: Alert, Oriented Neck: Reports: Supple Lungs: Reports: Clear to Auscultation, Normal Respiratory Effort Cardiovascular: Reports: Regular Rate, Regular Rhythm Back Exam: Reports: Normal Inspection, Decreased Range of Motion, Vertebral Tenderness Extremities: Normal Inspection, Normal Range of Motion, Non-Tender, No Pedal Edema, Normal Capillary Refill Skin: Reports: Warm, Dry, Intact Neurological: Reports: No New Focal Deficit Psy/Mental Status: Reports: Alert, Normal Affect, Normal Mood
[2017-08-23] MEDS ORDERED: Warfarin 2.5 MG Tab PO SCH (12:00)
== END 2017-08-23 09:50 | disposition home or self-care (01) | DRG 463 ==
LOC: CC.MS 08:20 → UNDOADMIN 08:20 → CC.MS 08:42
PROVIDERS: ADMIT General Practice; ATTEND General Practice
DX: N39.0 Urinary tract infection, site not specified (principal); M48.56XA Collapsed vertebra, not elsewhere classified, lumbar region, initial encounter for fracture; M51.26 Other intervertebral disc displacement, lumbar region; M84.48XA Pathological fracture, other site, initial encounter for fracture; M79.604 Pain in right leg; R53.83 Other fatigue; R06.02 Shortness of breath; R35.0 Frequency of micturition; R35.1 Nocturia; R32 Unspecified urinary incontinence; E78.5 Hyperlipidemia, unspecified; I10 Essential (primary) hypertension; M19.90 Unspecified osteoarthritis, unspecified site; R79.1 Abnormal coagulation profile; N28.9 Disorder of kidney and ureter, unspecified; K21.9 Gastro-esophageal reflux disease without esophagitis; M85.80 Other specified disorders of bone density and structure, unspecified site; D51.0 Vitamin B12 deficiency anemia due to intrinsic factor deficiency; E03.9 Hypothyroidism, unspecified; Z88.1 Allergy status to other antibiotic agents; Z88.8 Allergy status to other drugs, medicaments and biological substances; Z79.82 Long term (current) use of aspirin; Z79.899 Other long term (current) drug therapy; Z79.01 Long term (current) use of anticoagulants; Z86.711 Personal history of pulmonary embolism
CPT/HCPCS: 36415; 85610; 94640; 97110-GP; 97530-GP; A9270-GY; J0696; J3010

== ENCOUNTER 2017-10-11 05:00 | Emergency (ER) | payer BC ==
[2017-10-11 05:48] VITALS: BP 112/76
[2017-10-11 05:48] LABS: CHLORIDE,CL 101 mEq/L (98-106); SODIUM,NA 138 mEq/L (136-145)
[2017-10-11] MEDS ORDERED: Potassium Chloride 10 MEQ Tab.ER PO ONE (05:54)
--- NOTE | 2017-10-11 06:01 | EDM.PDOC ---
ED HPI GENERAL MEDICAL PROBLEM - General Chief Complaint: General Stated Complaint: "heart racing, chest pressure, swollen feet" Time Seen by Provider: 10/11/17 05:30 Source of Information: Reports: Patient History Limitations: Reports: No Limitations - History of Present Illness INITIAL COMMENTS - FREE TEXT/NARRATIVE: Pt states that she had some racing heart at home and according to her pulse ox it was in the 140's. Her sats were 94% at that time. Was concerned that it was that high. Has a history of ablation about 2 years ago. She did come in to be checked. Denied any chest pain when that occurred. Noted it because she had been up to the bathroom during the night and felt it racing some. Did not have any lightheadedness or dizziness. Has had problems with edema to feet and ankles but doesn't take her diuretic on a regular basis. When she does she has issues with incontinence. 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 Throat Pain Score (Numeric/FACES): 4 - Related Data Allergies Allergy/AdvReac Type Severity Reaction Status Date / Time amitriptyline Allergy Other Verified 10/11/17 05:17 mirabegron [From Myrbetriq] Allergy Other Verified 10/11/17 05:17 sulfamethoxazole Allergy Hives Verified 10/11/17 05:17 [From Bactrim] tramadol Allergy Confusion Verified 10/11/17 05:17 trimethoprim [From Bactrim] Allergy Hives Verified 10/11/17 05:17 Home Meds: Home Meds Levothyroxine [Synthroid] 100 mcg PO DAILY 01/04/14 [History] Metoprolol Succinate [Toprol Xl] 50 mg PO DAILY 01/04/14 [History] Acetaminophen [Tylenol] 650 mg PO Q6H PRN 12/11/14 [History] Aspirin 81 mg PO BEDTIME 12/11/14 [History] Cholecalciferol (Vitamin D3) [Vitamin D3] 5,000 units PO BEDTIME 12/11/14 [ History] Cyanocobalamin (Vitamin B-12) [Cyanocobalamin Injection] 2,000 mcg IM Q14D 12/11 [History] Sennosides/Docusate Sodium [Marina-Colace] 1 tab PO BID PRN 02/17/15 [History] Diltiazem HCl [Cartia Xt] 120 mg PO DAILY 04/08/17 [History] atorvaSTATin Calcium [Atorvastatin Calcium] 20 mg PO DAILY 09/01/16 [History] Albuterol Sulfate [Proair Hfa] 1 puff INH Q4H PRN 09/02/16 [History] Folic Acid 1 mg PO DAILY 09/02/16 [History] Potassium Chloride 20 meq PO BID 09/02/16 [History] Albuterol/Ipratropium [DuoNeb 3.0-0.5 MG/3 ML] 3 ml NEB QID PRN 09/25/16 [ History] Ketotifen Fumarate [Alaway] 1 drop OP BID PRN 09/25/16 [History] Acetaminophen/HYDROcodone [[place] 325-5 MG] 1 - 2 tab PO Q6H PRN 08/13/17 [ History] Budesonide/Formoterol [Symbicort 160-4.5 MCG] 1 puff INH BID 08/13/17 [History] Cranberry Extract [Cranberry] 2 tab PO BEDTIME 08/13/17 [History] LORazepam 1 mg PO BEDTIME PRN 08/13/17 [History] Warfarin [Coumadin] 2.5 mg PO DAILY 08/13/17 [History] Cyclobenzaprine [Flexeril] 10 mg PO TID PRN #30 tablet 08/23/17 [Rx] fentaNYL [Duragesic] 25 mcg TRDERM Q72H #20 patch 08/23/17 [Rx] Nitrofurantoin Gilliam/Macrocryst [Nitrofurantoin Gilliam-MCR] 100 mg PO DAILY [History] Torsemide 20 mg PO DAILY 10/11/17 [History] Warfarin [Coumadin] 5 mg PO TUTH 10/11/17 [History] Past Medical History - Past Health History Medical/Surgical History: Denies Medical/Surgical History HEENT History: Reports: Cataract, Sinusitis Cardiovascular History: Reports: Afib, Other (See Below) Other Cardiovascular History: SVT Respiratory History: Reports: Asthma Gastrointestinal History: Reports: None Genitourinary History: Reports: Urinary Incontinence 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 - Past Surgical History HEENT Surgical History: Reports: Cataract Surgery GI Surgical History: Reports: Appendectomy, Cholecystectomy Female Surgical History: Reports: Hysterectomy, Other (See Below) Endocrine Surgical History: Reports: Thyroidectomy Oncologic Surgical History: Reports: Biopsy of Breast Social & Family History - Family History Family Medical History: Noncontributory - Tobacco Use Smoking Status *Q: Never Smoker - Caffeine Use Caffeine Use: Reports: Soda - Recreational Drug Use Recreational Drug Use: No - Living Situation & Occupation Living situation: Reports: , Alone Occupation: Employed ED ROS GENERAL - Review of Systems Review Of Systems: See Below Constitutional: Denies: Fever, Chills HEENT: Reports: No Symptoms Respiratory: Denies: Shortness of Breath, Cough Cardiovascular: Reports: Palpitations. Denies: Chest Pain GI/Abdominal: Reports: No Symptoms : Reports: No Symptoms Musculoskeletal: Reports: No Symptoms Skin: Reports: No Symptoms Neurological: Reports: No Symptoms ED EXAM, GENERAL - Physical Exam Exam: See Below Exam Limited By: No Limitations General Appearance: Alert, WD/WN, No Apparent Distress Ears: Normal External Exam, Normal Canal, Normal TMs Nose: Normal Inspection Throat/Mouth: Normal Inspection, Normal Oropharynx, Normal Voice, No Airway Compromise Head: Atraumatic, Normocephalic Neck: Normal Inspection, Supple, Non-Tender, Full Range of Motion Respiratory/Chest: Lungs Clear, Normal Breath Sounds Cardiovascular: Regular Rate, Rhythm GI/Abdominal: Normal Bowel Sounds, Soft, Non-Tender Back Exam: Normal Inspection Extremities: Normal Range of Motion, Non-Tender, Normal Capillary Refill, Pedal Edema (1-2+ bilaterally from ankle to feet.) Neurological: Alert, Oriented Skin Exam: Warm, Dry, Intact Course - Vital Signs Last Recorded V/S: Last Vital Signs Temp 98 F 10/11/17 05:11 Pulse 85 10/11/17 05:47 Resp 18 10/11/17 05:47 BP 112/76 10/11/17 05:47 Pulse Ox 94 L 10/11/17 05:47 - Orders/Labs/Meds Orders: Active Orders 24 hr Category Date Time Status EKG Documentation Completion [RC] STAT Care 10/11/17 05:00 Active Labs: Laboratory Tests 05/18/18 05/18/18 05/18/18 Range/Units 05:25 05:25 05:25 WBC 6.1 (5.0-10.0) 10^3/uL RBC 3.94 L (4.00-5.50) 10^6/uL Hgb 11.8 L (12.0-16.0) g/dL Hct 35.6 L (37.0-47.0) % MCV 90.4 (82.0-94.0) fL MCH 29.9 (27.0-32.0) pg MCHC 33.1 (33.0-38.0) g/dL RDW Coeff of Sher 14.8 (11.0-15.0) % Plt Count 338 (150-400) 10^3/uL Neut % (Auto) 63.6 (35-85) % Lymph % (Auto) 24.5 (10-55) % Gilliam % (Auto) 10.8 (0-16) % Eos % (Auto) 0.8 (0-5) % Baso % (Auto) 0.3 (0-3) % Neut # (Auto) 3.90 (1.80-7.00) 10^3/uL Lymph # (Auto) 1.50 (1.00-4.80) 10^3/uL Gilliam # (Auto) 0.66 (0.00-0.80) 10^3/uL Eos # (Auto) 0.05 (0.00-0.45) 10^3/uL Baso # (Auto) 0.02 10^3/uL PT 15.0 H (9.7-12.3) SEC INR 1.49 H (0.92-1.18) Sodium 138 (136-145) mEq/L Potassium 2.5 L* D (3.5-5.0) mEq/L Chloride 101 (98-106) mEq/L Carbon Dioxide 26 (21-32) mmol/L BUN 11 (7-18) mg/dL Creatinine 0.7 (0.6-1.0) mg/dL Est Cr Clr Drug Dosing 55.77 mL/min Estimated GFR (MDRD) > 60 (>=60) mL/min Glucose 101 H (75-99) mg/dL Calcium 8.1 L (8.4-10.1) mg/dL Total Bilirubin 0.9 (0.0-1.0) mg/dL AST 19 (15-37) U/L ALT 20 (12-78) U/L Alkaline Phosphatase 129 H (46-116) U/L Lactate Dehydrogenase 255 H (100-190) U/L Creatine Kinase 42 (21-215) U/L Troponin I < 0.017 (0.00-0.06) ng/mL NT-Pro-B Natriuret Pep 109 (0-1000) pg/mL Total Protein 6.1 L (6.4-8.2) g/dL Albumin 2.8 L (3.4-5.0) g/dL Meds: Medications Discontinued Medications Generic Name Dose Route Start Last Admin Trade Name Goyo PRN Reason Stop Dose Admin Potassium Chloride 40 meq 10/11/17 05:54 Klor-Con 10 PO 10/11/17 05:55 ONETIME ONE - Re-Assessments/Exams Free Text/Narrative Re-Assessment/Exam: 10/11/17 06:00 In to discuss her lab results and that the K is 2.5 at this time and her INR is 1.49. Will increase both the K+ and the coumadin dose. Departure - Departure Time of Disposition: 06:01 Disposition: Home, Self-Care 01 Condition: Good Clinical Impression: Hypokalemia, Peripheral edema, Heart palpitations - Discharge Information Additional Instructions: Your INr is low- inicrease coumadin to 5 mg 4 days a week and a half a pill 3 days a week. Recheck on the with Dr. Malagon Increase your potassium to 3 times a day. Recheck with Dr. Malagon on also. Take your torsemide as directed daily to help with the swelling Wear compression socks every day. Put them on when you first get up in the morning and take off in the evening. Elevate legs when sitting as much as possible. - Problem List & Annotations (1) Hypokalemia SNOMED Code(s): 18813814 Code(s): E87.6 - HYPOKALEMIA Status: Acute Priority: High (2) Peripheral edema SNOMED Code(s): 644079157 Code(s): R60.9 - EDEMA, UNSPECIFIED Status: Chronic Priority: Low - Problem List Review Problem List Initiated/Reviewed/Updated: Yes - My Orders Last 24 Hours: My Active Orders 10/11/17 05:00 EKG Documentation Completion [RC] STAT - Assessment/Plan Last 24 Hours: My Active Orders 10/11/17 05:00 EKG Documentation Completion [RC] STAT
== END 2017-10-11 06:20 | disposition home or self-care (01) ==
LOC: CC.ED 05:00
DX: E87.6 Hypokalemia (principal); R60.0 Localized edema; Z88.8 Allergy status to other drugs, medicaments and biological substances; Z88.2 Allergy status to sulfonamides; Z88.5 Allergy status to narcotic agent; Z88.1 Allergy status to other antibiotic agents; Z79.82 Long term (current) use of aspirin; Z79.899 Other long term (current) drug therapy
CPT/HCPCS: 36415; 80053; 82550; 83615; 83880; 84484; 85025; 85610; 93005; 99284; A9270

== ENCOUNTER → 2017-11-01 | Day surgery (SDC) | payer BC ==
[~2017-11-01] MED LIST: Lactated Ringers 1,000 ML IV SCH; Lidocaine 4% Top Soln 5 ML LTA Syringe ONE; Lidocaine 4% Top Soln 5 ML LTA Syringe TOP ONE; Meperidine PF 25 MG/ML Syringe IV ONE; Meperidine PF 25 MG/ML Syringe ONE; Midazolam 1 MG/ML 2 ML SDV IV ONE; Midazolam 1 MG/ML 2 ML SDV ONE
[2017-11-01 10:28] VITALS: BP 111/59
--- NOTE | 2017-11-06 13:08 | OR ---
DATE OF OPERATION: 11/01/2017 PREOPERATIVE DIAGNOSIS: EPIGASTRIC PAIN. POSTOPERATIVE DIAGNOSIS: EPIGASTRIC PAIN. SURGEON: John Sutton MD PROCEDURE PERFORMED: EGD with antral biopsy x2, DAVID. ANESTHESIA: Conscious sedation. COMPLICATIONS: None. SPECIMEN: 1. Antral biopsy x2. 2. DAVID. FINDINGS: 1. Full-length EGD. 2. Antral ulcer. RECOMMENDATIONS: Appropriate medical therapy with close followup with her primary provider. INDICATIONS: The patient has been having some dyspepsia and epigastric pain. Dr. Malagon sent for EGD. DESCRIPTION OF PROCEDURE: The patient was prepped and draped, placed in the left lateral decubitus position. A lubricated Olympus gastroscope was inserted and advanced the cricopharyngeus area, with patient swallow, easily intubated in the esophagus. Esophageal lining was benign in its entire course. The Z-line was crisp and sharp at 39 cm. No distal esophagitis, stricturing, ulceration, or Lopez's changes. The scope was advanced into the stomach through the pylorus into the second portion of the duodenum. This and the duodenal bulb were benign. The scope was brought back into the stomach and retroflexed. The upper fundus and cardia were unremarkable. In the antrum, the patient had some mild gastritis changes with a focal ulceration/erosion. Two biopsies were taken along with a DAVID test. Air was suctioned. Scope was removed without complication. The patient was stable in the recovery room. DORIS/SHOAIB /[id number]
== END ==
LOC: CC.SDS 08:24
PROVIDERS: ATTEND Family Medicine
DX: R10.13 Epigastric pain (principal); K29.50 Unspecified chronic gastritis without bleeding; I10 Essential (primary) hypertension; I26.99 Other pulmonary embolism without acute cor pulmonale; M54.9 Dorsalgia, unspecified; Z79.82 Long term (current) use of aspirin; Z79.899 Other long term (current) drug therapy; Z88.1 Allergy status to other antibiotic agents; Z88.2 Allergy status to sulfonamides; Z88.5 Allergy status to narcotic agent; Z88.8 Allergy status to other drugs, medicaments and biological substances
CPT/HCPCS: 43239; 87081; A9270; J2175; J2250; J7120

== ENCOUNTER 2018-09-06 16:24 | Emergency (ER) | payer BC ==
[2018-09-06] MEDS ORDERED: Doxycycline 100 MG Tab PO ONE (16:25)
[2018-09-06 16:54] VITALS: BP 117/74
[2018-09-06 16:59] LABS: CHLORIDE,CL 105 mEq/L (98-106); SODIUM,NA 140 mEq/L (136-145)
--- NOTE | 2018-09-06 17:00 | EDM.PDOC ---
ED HPI GENERAL MEDICAL PROBLEM - General Chief Complaint: General Stated Complaint: fever Time Seen by Provider: 09/06/18 16:48 Source of Information: Reports: Patient History Limitations: Reports: No Limitations - History of Present Illness INITIAL COMMENTS - FREE TEXT/NARRATIVE: Katharine is a 73 yo female who presents to the ED with complaints of a fever. She states symptoms started yesterday evening and have gotten worse today. Admits her temperature earlier today was 101 and she took two Tylenol around 3 this afternoon. States she has a lot of sinus pressure and congestion. Feels like she needs to cough something up but is unable to. States she does a have a little sore throat as well. 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 - Related Data Allergies Allergy/AdvReac Type Severity Reaction Status Date / Time amitriptyline Allergy Other Verified 09/06/18 16:27 mirabegron [From Myrbetriq] Allergy Other Verified 09/06/18 16:27 sulfamethoxazole Allergy Hives Verified 09/06/18 16:27 [From Bactrim] tramadol Allergy Confusion Verified 09/06/18 16:27 trimethoprim [From Bactrim] Allergy Hives Verified 09/06/18 16:27 Home Meds: Home Meds Metoprolol Succinate [Toprol Xl] 50 mg PO DAILY 01/04/14 [History] Acetaminophen [Tylenol] 650 mg PO Q6H PRN 12/11/14 [History] Cholecalciferol (Vitamin D3) [Vitamin D3] 5,000 units PO BEDTIME 12/11/14 [ History] Cyanocobalamin (Vitamin B-12) [Cyanocobalamin Injection] 2,000 mcg IM Q14D 12/11 [History] Diltiazem HCl [Cartia Xt] 120 mg PO DAILY 09/01/16 [History] atorvaSTATin Calcium [Atorvastatin Calcium] 20 mg PO DAILY 09/01/16 [History] Albuterol Sulfate [Proair Hfa] 1 puff INH Q4H PRN 09/02/16 [History] Folic Acid 1 mg PO DAILY 09/02/16 [History] Potassium Chloride 20 meq PO DAILY 09/02/16 [History] Albuterol/Ipratropium [DuoNeb 3.0-0.5 MG/3 ML] 3 ml NEB QID PRN 05/02/17 [ History] Acetaminophen/HYDROcodone [[place] 325-5 MG] 1 - 2 tab PO Q6H PRN 08/13/17 [ History] Budesonide/Formoterol [Symbicort 160-4.5 MCG] 2 puff INH BID 08/13/17 [History] Cranberry Extract [Cranberry] 2 tab PO BEDTIME 08/13/17 [History] LORazepam 2 mg PO BEDTIME PRN 08/13/17 [History] Dextran 70/Hypromellose [Artificial Tears] 1 drop OP Q6HR 10/30/17 [History] Hydrocodone/Acetaminophen [Hydrocodon-Acetaminophen 5-325] 1 - 2 tab PO Q6HR PRN 10/30/17 [History] Lidocaine 5% [Lidoderm 5%] 700 mg TRDERM DAILY 10/30/17 [History] Ondansetron [Zofran ODT] 4 mg PO Q8HR PRN 10/30/17 [History] Apixaban [Eliquis] 2.5 mg PO BID 09/06/18 [History] Azelastine HCl 205.5 mcg NS BID 09/06/18 [History] Cetirizine [ZyrTEC] 10 mg PO DAILY 09/06/18 [History] Levothyroxine [Synthroid] 88 mcg PO ACBREAKFAST 09/06/18 [History] Montelukast [Singulair] 10 mg PO DAILY 09/06/18 [History] Pantoprazole [ProTONIX] 40 mg PO DAILY 09/06/18 [History] Past Medical History HEENT History: Reports: Cataract, Sinusitis Cardiovascular History: Reports: Afib, Aneurysm, Other (See Below) Other Cardiovascular History: SVT Respiratory History: Reports: Asthma Gastrointestinal History: Reports: None Genitourinary History: Reports: Urinary Incontinence 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 - Past Surgical History HEENT Surgical History: Reports: Cataract Surgery Cardiovascular Surgical History: Reports: Cardiac Ablation GI Surgical History: Reports: Appendectomy, Cholecystectomy Female Surgical History: Reports: Hysterectomy, Other (See Below) Endocrine Surgical History: Reports: Thyroidectomy Oncologic Surgical History: Reports: Biopsy of Breast Social & Family History - Family History Family Medical History: Noncontributory - Tobacco Use Smoking Status *Q: Never Smoker - Caffeine Use Caffeine Use: Reports: Soda - Living Situation & Occupation Living situation: Reports: , Alone Occupation: Employed ED ROS GENERAL - Review of Systems Review Of Systems: See Below Constitutional: Reports: Fever, Chills HEENT: Reports: Throat Pain, Other (sinus pressure, congestion). Denies: Ear Pain Respiratory: Reports: Shortness of Breath, Wheezing, Cough. Denies: Sputum Cardiovascular: Reports: No Symptoms GI/Abdominal: Reports: No Symptoms ED EXAM, GENERAL - Physical Exam Exam: See Below Exam Limited By: No Limitations General Appearance: Alert, No Apparent Distress Ears: Normal External Exam, Normal Canal, Hearing Grossly Normal, Normal TMs Nose: Normal Inspection, Normal Mucosa, No Blood Throat/Mouth: Normal Inspection, Normal Lips, Normal Teeth, Normal Gums, Normal Oropharynx, Normal Voice, No Airway Compromise Head: Atraumatic, Normocephalic Neck: Normal Inspection, Supple Respiratory/Chest: No Respiratory Distress, Lungs Clear, Normal Breath Sounds, No Accessory Muscle Use, Other (dry cough). No: Crackles, Rales, Rhonchi, Stridor, Accessory Muscle Use, Retractions Cardiovascular: Regular Rate, Rhythm, Systolic Murmur GI/Abdominal: Normal Bowel Sounds, Soft, Non-Tender, No Distention Extremities: Normal Inspection Neurological: Alert, Oriented, Normal Cognition Psychiatric: Normal Affect, Normal Mood Skin Exam: Warm, Dry, Intact, Normal Color, No Rash Course - Vital Signs Last Recorded V/S: Last Vital Signs Temp 99.1 F 09/06/18 16:29 Pulse 74 09/06/18 16:29 Resp 18 09/06/18 16:29 BP 117/74 09/06/18 16:29 Pulse Ox 94 L 09/06/18 16:29 - Orders/Labs/Meds Orders: Active Orders 24 hr Category Date Time Status CTA Chest W WO Contrast [Ang Chest] [CT] Stat Exams 09/06/18 17:13 Taken Chest 2V [CR] Stat Exams 09/06/18 16:37 Taken Codeine/Promethazine [Phenergan with Codeine] Med 09/06/18 17:41 Active 10 ml PO STAT PRN Medication Orders Promethazine HCl/Codeine (Phenergan With Codeine) 10 ml PO STAT PRN PRN Reason: Cough Last Admin: 09/06/18 17:51 Dose: 10 ml Labs: Laboratory Tests 09/06/18 09/06/18 09/06/18 Range/Units 16:51 16:51 16:51 WBC 5.9 (5.0-10.0) 10^3/uL RBC 4.22 (4.00-5.50) 10^6/uL Hgb 12.7 (12.0-16.0) g/dL Hct 38.1 (37.0-47.0) % MCV 90.3 (82.0-94.0) fL MCH 30.1 (27.0-32.0) pg MCHC 33.3 (33.0-38.0) g/dL RDW Coeff of Sher 14.4 (11.0-15.0) % Plt Count 308 (150-400) 10^3/uL Neut % (Auto) 64.5 (35-85) % Lymph % (Auto) 22.0 (10-55) % [place] % (Auto) 12.0 (0-16) % Eos % (Auto) 1.2 (0-5) % Baso % (Auto) 0.3 (0-3) % Neut # (Auto) 3.80 (1.80-7.00) 10^3/uL Lymph # (Auto) 1.30 (1.00-4.80) 10^3/uL [place] # (Auto) 0.71 (0.00-0.80) 10^3/uL Eos # (Auto) 0.07 (0.00-0.45) 10^3/uL Baso # (Auto) 0.02 10^3/uL D-Dimer, Quantitative 0.95 H (0.00-0.50) Sodium 140 (136-145) mEq/L Potassium 3.7 (3.5-5.0) mEq/L Chloride 105 (98-106) mEq/L Carbon Dioxide 24 (21-32) mmol/L BUN 11 (7-18) mg/dL Creatinine 0.7 (0.6-1.0) mg/dL Est Cr Clr Drug Dosing 52.40 mL/min Estimated GFR (MDRD) > 60 (>=60) mL/min Glucose 102 H (75-99) mg/dL Calcium 8.8 (8.4-10.1) mg/dL C-Reactive Protein 0.9 H (0.2-0.8) mg/dL Meds: Medications Generic Name Dose Route Start Last Admin Trade Name Freq PRN Reason Stop Dose Admin Promethazine HCl/Codeine 10 ml 09/06/18 17:41 09/06/18 17:51 Phenergan With Codeine PO 10 ml STAT PRN Administration Cough Discontinued Medications Generic Name Dose Route Start Last Admin Trade Name Freq PRN Reason Stop Dose Admin Iopamidol 100 ml 09/06/18 17:21 09/06/18 17:38 Isovue-370 (76%) IVPUSH 09/06/18 17:22 100 ml ONETIME ONE Administration - Radiology Interpretation Free Text/Narrative:: CTA chest was negative for PE. Incidentally, a couple small cyst appearing lesions were noted. Recommend follow up with MRI. CT Results Date: 09/06/18 CT Results Time: 18:19 - Re-Assessments/Exams Free Text/Narrative Re-Assessment/Exam: 09/06/18 17:16 Laboratory work showed an elevated d-dimer which will get CTA chest to rule out PE. Otherwise, laboratory work is unremarkable. Departure - Departure Time of Disposition: 18:30 Disposition: Home, Self-Care 01 Condition: Good Clinical Impression: Bronchitis, acute Qualifiers: Bronchitis organism: unspecified organism Qualified Code(s): J20.9 - Acute bronchitis, unspecified - Discharge Information Instructions: Acute Bronchitis, Adult, [id number] Forms: ED Department Discharge Additional Instructions: 1) Doxycycline 100mg twice a day for 7 days 2) Promethazine with codeine - 1 tspful (5ml) every 6 hours as needed for cough 3) Follow up with primary for MRI of pancreas, as discussed 4) Use nebulizer at home to help with chest congestion 5) May use Mucinex 6) Continue with Tylenol for fevers 7) Follow up if any concerns. - Problem List & Annotations (1) Bronchitis, acute SNOMED Code(s): 14019957 Code(s): J20.9 - ACUTE BRONCHITIS, UNSPECIFIED Status: Acute Current Visit: Yes Qualifiers: Bronchitis organism: unspecified organism Qualified Code(s): J20.9 - Acute bronchitis, unspecified - My Orders Last 24 Hours: My Active Orders 09/06/18 16:37 Chest 2V [CR] Stat 09/06/18 17:13 CTA Chest W WO Contrast [Ang Chest] [CT] Stat 09/06/18 17:41 Codeine/Promethazine [Phenergan with Codeine] 10 ml PO STAT PRN - Assessment/Plan Last 24 Hours: My Active Orders 09/06/18 16:37 Chest 2V [CR] Stat 09/06/18 17:13 CTA Chest W WO Contrast [Ang Chest] [CT] Stat 09/06/18 17:41 Codeine/Promethazine [Phenergan with Codeine] 10 ml PO STAT PRN Plan: See course and additional instructions. Will discharge home in satisfactory condition.
[2018-09-06] MEDS ORDERED: Iopamidol 755 Mg/ML 100 ML Bottle IVPUSH ONE (17:21)
[2018-09-06] MEDS ORDERED: Codeine/Promethazine 10-6.25 MG/5 ML Syrup 5 ML UD Cup PO PRN ×2 (17:41→18:17)
[2018-09-06] MEDS ORDERED: cefTRIAXone 1 GM Vial IV ONE (18:16)
[2018-09-06] MEDS ORDERED: methylPREDNISolone Acetate 80 MG/ML SDV IM ONE (18:16)
[2018-09-06] MEDS ORDERED: Take Home: Doxycycline 100 MG Tab, 4 Tab Pack PO ONE (18:19)
== END 2018-09-06 18:45 | disposition home or self-care (01) ==
LOC: CC.ED 16:24
DX: J20.9 Acute bronchitis, unspecified (principal); I48.91 Unspecified atrial fibrillation; J45.909 Unspecified asthma, uncomplicated; F41.9 Anxiety disorder, unspecified; Z79.899 Other long term (current) drug therapy; Z88.8 Allergy status to other drugs, medicaments and biological substances; Z88.6 Allergy status to analgesic agent; Z88.1 Allergy status to other antibiotic agents; Z88.2 Allergy status to sulfonamides
CPT/HCPCS: 36415; 71046; 71275; 80048; 85025; 85379; 86140; 87804; 96372; 96374; 99284; A9270; J0696; J1040; Q9967

== ENCOUNTER 2019-10-17 14:55 | Emergency (ER) | payer BC ==
[2019-10-17 15:01] VITALS: BP 172/90; PULSE 83
--- NOTE | 2019-10-17 15:05 | EDM.PDOC ---
ED HPI GENERAL MEDICAL PROBLEM - General Chief Complaint: Lower Extremity Injury/Pain Stated Complaint: L leg pain Time Seen by Provider: 10/17/19 14:57 Source of Information: Reports: Patient History Limitations: Reports: No Limitations - History of Present Illness INITIAL COMMENTS - FREE TEXT/NARRATIVE: This patient is a 74 year old female that presents to the ER. Patient reports that started this morning she began having LLE anterior/medial leg pain. Patient denies injury. She reports some mild swelling at the location. Patient reports she has taken ASA for the pain, that did help some. Onset: Today Duration: Hour(s): (6) Location: Reports: Lower Extremity, Left Quality: Reports: Ache Severity: Mild Improves with: Reports: None Worsens with: Reports: None Associated Symptoms: Denies: Confusion, Chest Pain, Cough, cough w sputum, Diaphoresis, Fever/Chills, Headaches, Loss of Appetite, Malaise, Nausea/Vomiting , Rash, Seizure, Shortness of Breath, Syncope, Weakness Left Leg Pain Score (Numeric/FACES): 5 - Related Data Allergies Allergy/AdvReac Type Severity Reaction Status Date / Time amitriptyline Allergy Other Verified 10/17/19 15:07 mirabegron [From Myrbetriq] Allergy Other Verified 10/17/19 15:07 sulfamethoxazole Allergy Hives Verified 10/17/19 15:07 [From Bactrim] tramadol Allergy Confusion Verified 10/17/19 15:07 trimethoprim [From Bactrim] Allergy Hives Verified 10/17/19 15:07 Home Meds: Home Meds Metoprolol Succinate [Toprol Xl] 25 mg PO DAILY 01/04/14 [History] Acetaminophen [Tylenol] 650 mg PO Q6H PRN 12/11/14 [History] Cholecalciferol (Vitamin D3) [Vitamin D3] 5,000 units PO BEDTIME 12/11/14 [ History] Cyanocobalamin (Vitamin B-12) [Cyanocobalamin Injection] 2,000 mcg IM Q14D 12/11 [History] atorvaSTATin Calcium [Atorvastatin Calcium] 25 mg PO DAILY 09/01/16 [History] Albuterol Sulfate [Proair Hfa] 1 puff INH Q4H PRN 09/02/16 [History] Folic Acid 1 mg PO DAILY 09/02/16 [History] Potassium Chloride 20 meq PO DAILY 09/02/16 [History] Albuterol/Ipratropium [DuoNeb 3.0-0.5 MG/3 ML] 3 ml NEB QID PRN 09/25/16 [ History] Budesonide/Formoterol [Symbicort 160-4.5 MCG] 2 puff INH BID 08/13/17 [History] Cranberry Fruit Extract [Cranberry] 2 tab PO BEDTIME 08/13/17 [History] LORazepam 2 mg PO QID PRN 08/13/17 [History] Dextran 70/Hypromellose [Artificial Tears] 1 drop OP Q6HR 10/30/17 [History] Hydrocodone/Acetaminophen [Hydrocodone-Acetamin 5-325 mg] 1 - 2 tab PO Q6HR PRN 10/30/17 [History] Lidocaine 5% [Lidoderm 5%] 700 mg TRDERM DAILY PRN 10/30/17 [History] Ondansetron [Zofran ODT] 4 mg PO Q8HR PRN 10/30/17 [History] Levothyroxine [Synthroid] 88 mcg PO ACBREAKFAST 09/06/18 [History] Aspirin [Halfprin] 81 mg PO DAILY 10/17/19 [History] Esomeprazole Magnesium [Nexium] 40 mg PO DAILY 10/17/19 [History] Famotidine [Pepcid] 40 mg PO DAILY 10/17/19 [History] Past Medical History - Past Health History Medical/Surgical History: Denies Medical/Surgical History HEENT History: Reports: Cataract, Sinusitis Cardiovascular History: Reports: Afib, Aneurysm, Other (See Below) Other Cardiovascular History: SVT Respiratory History: Reports: Asthma Gastrointestinal History: Reports: None Genitourinary History: Reports: Urinary Incontinence 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 - Past Surgical History HEENT Surgical History: Reports: Cataract Surgery Cardiovascular Surgical History: Reports: Cardiac Ablation GI Surgical History: Reports: Appendectomy, Cholecystectomy Female Surgical History: Reports: Hysterectomy, Other (See Below) Endocrine Surgical History: Reports: Thyroidectomy Oncologic Surgical History: Reports: Biopsy of Breast Social & Family History - Family History Family Medical History: Noncontributory - Caffeine Use Caffeine Use: Reports: Soda - Living Situation & Occupation Living situation: Reports: , Alone Occupation: Employed Review of Systems - Review of Systems Review Of Systems: See Below Constitutional: Reports: No Symptoms Eyes: Reports: No Symptoms Ears: Reports: No Symptoms Nose: Reports: No Symptoms Mouth/Throat: Reports: No Symptoms Respiratory: Reports: No Symptoms Cardiovascular: Reports: No Symptoms GI/Abdominal: Reports: No Symptoms Genitourinary: Reports: No Symptoms Musculoskeletal: Reports: Leg Pain (LLE pain and mild swelling) Skin: Reports: No Symptoms Neurological: Reports: No Symptoms Psychiatric: Reports: No Symptoms ED EXAM, GENERAL - Physical Exam Exam: See Below Exam Limited By: No Limitations General Appearance: Alert, WD/WN, No Apparent Distress Eye Exam: Bilateral Eye: Normal Inspection, PERRL Ears: Normal External Exam, Normal Canal, Hearing Grossly Normal, Normal TMs Ear Exam: Bilateral Ear: Auricle Normal, Canal Normal, TM normal Nose: Normal Inspection, Normal Mucosa, No Blood Throat/Mouth: Normal Inspection, Normal Lips, Normal Gums, Normal Oropharynx, Normal Voice, No Airway Compromise Head: Atraumatic, Normocephalic Neck: Normal Inspection, Supple, Non-Tender, Full Range of Motion Respiratory/Chest: No Respiratory Distress, Lungs Clear, Normal Breath Sounds, No Accessory Muscle Use Cardiovascular: Normal Peripheral Pulses, No JVD, No Rub, Systolic Murmur, Other (+1 BLE chronic per patient. ) Peripheral Pulses: 2+: Radial (L), Radial (R), Femoral (L), Femoral (R), Popliteal (L), Popliteal (R), Posterior Tibial (L), Posterior Tibial (R), Dorsalis Pedis (L), Dorsalis Pedis (R) GI/Abdominal: Soft, Non-Tender Back Exam: Normal Inspection Extremities: Normal Capillary Refill, Other (LLE anterior/medial mid tib fib/ ordaz pain, tenderness, mild swelling. ). No: Slow Capillary Refill, Joint Swelling, Lizzie's Sign, Limited Range of Motion, Increased Warmth, Redness Neurological: Alert, Oriented Psychiatric: Normal Affect, Normal Mood Skin Exam: Warm, Dry, Intact, Normal Color, No Rash. No: Ecchymosis Lymphatic: No Adenopathy Course - Vital Signs Last Recorded V/S: Last Vital Signs Temp 98 F 10/17/19 14:57 Pulse 83 10/17/19 14:57 Resp 18 10/17/19 14:57 BP 172/90 H 10/17/19 14:57 Pulse Ox 98 10/17/19 14:57 - Orders/Labs/Meds Orders: Active Orders 24 hr Category Date Time Status Tibia Fibula Lt [CR] Stat Exams 10/17/19 15:04 Taken VL Duplex Lwr Ext Veins Comp [US] Stat Exams 10/17/19 15:04 Taken - Radiology Interpretation Free Text/Narrative:: Left tib/fib: no fracture, dislocation, soft tissue swelling: Very evident arteries. US: No DVTs bilateral legs per tech Departure - Departure Time of Disposition: 16:12 Disposition: Home, Self-Care 01 Condition: Fair Clinical Impression: Muscle strain, lower leg Qualifiers: Encounter type: initial encounter Laterality: left Qualified Code(s): S86.912A - Strain of unspecified muscle(s) and tendon(s) at lower leg level, left leg, initial encounter - Discharge Information *PRESCRIPTION DRUG MONITORING PROGRAM REVIEWED*: Not Applicable *COPY OF PRESCRIPTION DRUG MONITORING REPORT IN PATIENT ALF: Not Applicable Instructions: Muscle Strain, [id number] Forms: ED Department Discharge Additional Instructions: Followup with your primary care provider Return to the ER for worsening of condition or any emergent concerns Rest Ice Elevate Sepsis Event Note - Evaluation Sepsis Screening Result: No Definite Risk - Focused Exam Vital Signs: Vital Signs Temp Pulse Resp BP Pulse Ox 10/17/19 14:57 98 F 83 18 172/90 H 98 Date Exam was Performed: 10/17/19 Time Exam was Performed: 16:12 - My Orders Last 24 Hours: My Active Orders 10/17/19 15:04 Tibia Fibula Lt [CR] Stat VL Duplex Lwr Ext Veins Comp [US] Stat - Assessment/Plan Last 24 Hours: My Active Orders 10/17/19 15:04 Tibia Fibula Lt [CR] Stat VL Duplex Lwr Ext Veins Comp [US] Stat Plan: PLEASE SEE RN NOTE FOR PFSH.
== END 2019-10-17 16:20 | disposition home or self-care (01) ==
LOC: CC.ED 14:55
DX: S86.912A Strain of unspecified muscle(s) and tendon(s) at lower leg level, left leg, initial encounter (principal); I48.91 Unspecified atrial fibrillation; J45.909 Unspecified asthma, uncomplicated; Z88.2 Allergy status to sulfonamides; Z88.8 Allergy status to other drugs, medicaments and biological substances; Z79.899 Other long term (current) drug therapy; Z88.5 Allergy status to narcotic agent; X58.XXXA Exposure to other specified factors, initial encounter
CPT/HCPCS: 73590-LT; 93970; 99284-25

== ENCOUNTER 2019-11-16 10:15 | Observation (INO) | payer BC ==
[2019-11-16 10:46] LABS: CHLORIDE,CL 91 mEq/L (98-106); SODIUM,NA 125 mEq/L (136-145)
--- NOTE | 2019-11-16 11:53 | EDM.PDOC ---
ED HPI GENERAL MEDICAL PROBLEM - General Chief Complaint: General Stated Complaint: weakness Time Seen by Provider: 11/16/19 10:45 Source of Information: Reports: Patient History Limitations: Reports: No Limitations - History of Present Illness INITIAL COMMENTS - FREE TEXT/NARRATIVE: Katharine is a 74 yo female who is brought into the ED by a friend with complaints of weakness and recent falls X 2. She states she started feeling weak at home last night and ended up falling twice. One time she said she fell to her knees and the other time she fell backwards. Admits to hitting her head but didn't lose consciousness. She states she was able to crawl but unable to stand up completely so she slept on the floor. Her neighbor checked on her this morning and found her on the the floor and brought her to the ED. She states her muscles have been sore for quite a while now. Denies any upper respiratory symptoms. States she does have chronic sinus drainage out of the right nostril and a sore throat from reflux. Admits it has been ongoing for months. She denies any COVID symptoms. No recent fevers. States she does have a history of UTI's but doesn't feel she has one at this time. - Related Data Allergies Allergy/AdvReac Type Severity Reaction Status Date / Time amitriptyline Allergy Other Verified 11/16/19 10:30 mirabegron [From Myrbetriq] Allergy Other Verified 11/16/19 10:30 sulfamethoxazole Allergy Hives Verified 11/16/19 10:30 [From Bactrim] tramadol Allergy Confusion Verified 11/16/19 10:30 trimethoprim [From Bactrim] Allergy Hives Verified 11/16/19 10:30 Home Meds: Home Meds Metoprolol Succinate [Toprol Xl] 25 mg PO DAILY 01/04/14 [History] Acetaminophen [Tylenol] 650 mg PO Q6H PRN 12/11/14 [History] Cholecalciferol (Vitamin D3) [Vitamin D3] 5,000 units PO BEDTIME 12/11/14 [History] Cyanocobalamin (Vitamin B-12) [Cyanocobalamin Injection] 2,000 mcg IM Q14D 12/11/14 [History] atorvaSTATin Calcium [Atorvastatin Calcium] 25 mg PO DAILY 09/01/16 [History] Albuterol Sulfate [Proair Hfa] 1 puff INH Q4H PRN 09/02/16 [History] Folic Acid 1 mg PO DAILY 09/02/16 [History] Potassium Chloride 20 meq PO DAILY 09/02/16 [History] Albuterol/Ipratropium [DuoNeb 3.0-0.5 MG/3 ML] 3 ml NEB QID PRN 09/25/16 [History] Cranberry Fruit Extract [Cranberry] 2 tab PO BEDTIME 08/13/17 [History] LORazepam 2 mg PO QID PRN 08/13/17 [History] Dextran 70/Hypromellose [Artificial Tears] 1 drop OP Q6HR PRN 10/30/17 [History] Hydrocodone/Acetaminophen [Hydrocodone-Acetamin 5-325 mg] 1 - 2 tab PO Q6HR PRN 10/30/17 [History] Lidocaine 5% [Lidoderm 5%] 700 mg TRDERM DAILY PRN 10/30/17 [History] Ondansetron [Zofran ODT] 4 mg PO Q8HR PRN 10/30/17 [History] Levothyroxine [Synthroid] 88 mcg PO ACBREAKFAST 09/06/18 [History] Aspirin [Halfprin] 81 mg PO DAILY 10/17/19 [History] Esomeprazole Magnesium [Nexium] 40 mg PO DAILY 10/17/19 [History] Famotidine [Pepcid] 40 mg PO DAILY 10/17/19 [History] Past Medical History - Past Health History Medical/Surgical History: Denies Medical/Surgical History HEENT History: Reports: Cataract, Sinusitis Cardiovascular History: Reports: Afib, Aneurysm, Blood Clots/VTE/DVT, High Cholesterol, Pacemaker, Other (See Below) Other Cardiovascular History: SVT Respiratory History: Reports: Asthma Gastrointestinal History: Reports: Diverticulosis, GERD Genitourinary History: Reports: Urinary Incontinence 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 - Past Surgical History HEENT Surgical History: Reports: Cataract Surgery Cardiovascular Surgical History: Reports: Cardiac Ablation Respiratory Surgical History: Reports: None GI Surgical History: Reports: Appendectomy, Cholecystectomy, Colonoscopy, EGD, Polypectomy Female Surgical History: Reports: Hysterectomy, Other (See Below) Other Female Surgeries/Procedures: bladder reconstruction Endocrine Surgical History: Reports: Parathyroidectomy, Thyroidectomy Neurological Surgical History: Reports: Lumbar Spine, Other (See Below) Other Neurological Surgeries/Procedures: removed 7 bone spurs Musculoskeletal Surgical History: Reports: Carpal Tunnel Oncologic Surgical History: Reports: Biopsy of Breast Dermatological Surgical History: Reports: Skin Biopsy Social & Family History - Family History Family Medical History: Noncontributory - Tobacco Use Smoking Status *Q: Never Smoker - Caffeine Use Caffeine Use: Reports: Coffee, Soda - Recreational Drug Use Recreational Drug Use: No - Living Situation & Occupation Living situation: Reports: , Alone Occupation: Employed ED ROS GENERAL - Review of Systems Review Of Systems: See Below Constitutional: Reports: Weakness, Fatigue HEENT: Reports: Rhinitis. Denies: Nosebleed, Throat Swelling, Vision Change Respiratory: Reports: Cough. Denies: Shortness of Breath, Pleuritic Chest Pain Cardiovascular: Denies: Chest Pain, Edema, Lightheadedness, Palpitations, Syncope GI/Abdominal: Reports: Nausea. Denies: Abdominal Pain, Bloody Stool, Constipation, Diarrhea, Melena, Vomiting : Denies: Discharge, Dysuria, Frequency, Hematuria Musculoskeletal: Reports: Back Pain, Muscle Stiffness Skin: Reports: No Symptoms Neurological: Reports: Difficulty Walking, Weakness. Denies: Confusion, Dizziness, Headache, Numbness, Paresthesia, Syncope, Change in Speech ED EXAM, GENERAL - Physical Exam Exam: See Below Exam Limited By: No Limitations General Appearance: Alert, WD/WN, No Apparent Distress Eye Exam: Bilateral Eye: EOMI, Normal Inspection Ears: Normal External Exam, Normal Canal, Hearing Grossly Normal, Normal TMs Nose: Normal Inspection, Normal Mucosa, No Blood Throat/Mouth: Normal Inspection, Normal Lips, Normal Gums, Normal Oropharynx, Normal Voice, No Airway Compromise Head: Atraumatic, Normocephalic Neck: Normal Inspection, Supple Respiratory/Chest: No Respiratory Distress, Lungs Clear, Normal Breath Sounds, No Accessory Muscle Use Cardiovascular: Normal Peripheral Pulses, Regular Rate, Rhythm, No Edema, Systolic Murmur GI/Abdominal: Normal Bowel Sounds, Soft, Non-Tender, No Organomegaly, No Distention Extremities: Normal Inspection, Normal Range of Motion, No Pedal Edema, Normal Capillary Refill Neurological: Alert, Oriented, CN II-XII Intact, Normal Cognition, No Motor/Sensory Deficits Psychiatric: Normal Affect, Normal Mood Skin Exam: Warm, Dry, Intact, Normal Color, No Rash EKG INTERPRETATION Rhythm: NSR Comparison: NA - No Prior EKG Course - Vital Signs Last Recorded V/S: Last Vital Signs Temp 96.4 F L 11/16/19 10:23 Pulse 82 11/16/19 10:23 Resp 18 11/16/19 10:23 BP 165/82 H 11/16/19 10:23 Pulse Ox 97 11/16/19 10:23 - Orders/Labs/Meds Orders: Active Orders 24 hr Category Date Time Status Patient Status Manage Transfer [TRANSFER] Routine ADT 11/16/19 11:42 Active Chest 2V [CR] Stat Exams 11/16/19 11:48 Ordered Head wo Cont [CT] Stat Exams 11/16/19 10:57 Taken Resuscitation Status Routine Resus Stat 11/16/19 11:42 Ordered Labs: Laboratory Tests 11/16/19 11/16/19 11/16/19 Range/Units 10:19 10:19 10:19 WBC 20.0 H (5.0-10.0) 10^3/uL RBC 4.37 (4.00-5.50) 10^6/uL Hgb 12.0 (12.0-16.0) g/dL Hct 36.1 L (37.0-47.0) % MCV 82.6 (82.0-94.0) fL MCH 27.5 (27.0-32.0) pg MCHC 33.2 (33.0-38.0) g/dL RDW Coeff of Sher 15.9 H (11.0-15.0) % Plt Count 329 (150-400) 10^3/uL Neut % (Auto) 82.7 (35-85) % Lymph % (Auto) 7.0 L (10-55) % [place] % (Auto) 10.1 (0-16) % Eos % (Auto) 0.2 (0-5) % Baso % (Auto) 0 (0-3) % Neut # (Auto) 16.54 H (1.80-7.00) 10^3/uL Lymph # (Auto) 1.41 (1.00-4.80) 10^3/uL [place] # (Auto) 2.03 H (0.00-0.80) 10^3/uL Eos # (Auto) 0.05 (0.00-0.45) 10^3/uL Baso # (Auto) 0.01 10^3/uL Sodium 125 L (136-145) mEq/L Potassium 4.1 (3.5-5.0) mEq/L Chloride 91 L (98-106) mEq/L Carbon Dioxide 28 (21-32) mmol/L BUN 16 (7-18) mg/dL Creatinine 0.7 (0.6-1.0) mg/dL Est Cr Clr Drug Dosing 49.11 mL/min Estimated GFR (MDRD) > 60 (>=60) mL/min Glucose 96 (75-99) mg/dL Calcium 8.4 (8.4-10.1) mg/dL Total Bilirubin 0.5 (0.0-1.0) mg/dL AST 17 (15-37) U/L ALT 28 (12-78) U/L Alkaline Phosphatase 117 H (46-116) U/L Creatine Kinase (21-215) U/L Troponin I (0.00-0.06) ng/mL C-Reactive Protein < 0.2 L (0.2-0.8) mg/dL Total Protein 6.8 (6.4-8.2) g/dL Albumin 3.3 L (3.4-5.0) g/dL Urine Color Yellow (YELLOW) Urine Appearance Clear (CLEAR) Urine pH 7.0 (4.5-8.0) Ur Specific [place] 1.015 (1.003-1.020) Urine Protein Negative (NEGATIVE) mg/dL Urine Glucose (UA) Negative (NEGATIVE) mg/dL Urine Ketones Negative (NEGATIVE) mg/dL Urine Occult Blood Negative (NEGATIVE) Urine Nitrite Negative (NEGATIVE) Urine Bilirubin Negative (NEGATIVE) Urine Urobilinogen 0.2 (0.2-1.0) EU/dL Ur Leukocyte Esterase Negative (NEGATIVE) 11/16/19 Range/Units 11:00 WBC (5.0-10.0) 10^3/uL RBC (4.00-5.50) 10^6/uL Hgb (12.0-16.0) g/dL Hct (37.0-47.0) % MCV (82.0-94.0) fL MCH (27.0-32.0) pg MCHC (33.0-38.0) g/dL RDW Coeff of Sher (11.0-15.0) % Plt Count (150-400) 10^3/uL Neut % (Auto) (35-85) % Lymph % (Auto) (10-55) % [place] % (Auto) (0-16) % Eos % (Auto) (0-5) % Baso % (Auto) (0-3) % Neut # (Auto) (1.80-7.00) 10^3/uL Lymph # (Auto) (1.00-4.80) 10^3/uL [place] # (Auto) (0.00-0.80) 10^3/uL Eos # (Auto) (0.00-0.45) 10^3/uL Baso # (Auto) 10^3/uL Sodium (136-145) mEq/L Potassium (3.5-5.0) mEq/L Chloride (98-106) mEq/L Carbon Dioxide (21-32) mmol/L BUN (7-18) mg/dL Creatinine (0.6-1.0) mg/dL Est Cr Clr Drug Dosing mL/min Estimated GFR (MDRD) (>=60) mL/min Glucose (75-99) mg/dL Calcium (8.4-10.1) mg/dL Total Bilirubin (0.0-1.0) mg/dL AST (15-37) U/L ALT (12-78) U/L Alkaline Phosphatase (46-116) U/L Creatine Kinase 71 (21-215) U/L Troponin I < 0.017 (0.00-0.06) ng/mL C-Reactive Protein (0.2-0.8) mg/dL Total Protein (6.4-8.2) g/dL Albumin (3.4-5.0) g/dL Urine Color (YELLOW) Urine Appearance (CLEAR) Urine pH (4.5-8.0) Ur Specific [place] (1.003-1.020) Urine Protein (NEGATIVE) mg/dL Urine Glucose (UA) (NEGATIVE) mg/dL Urine Ketones (NEGATIVE) mg/dL Urine Occult Blood (NEGATIVE) Urine Nitrite (NEGATIVE) Urine Bilirubin (NEGATIVE) Urine Urobilinogen (0.2-1.0) EU/dL Ur Leukocyte Esterase (NEGATIVE) Departure - Departure Time of Disposition: 11:55 Disposition: Refer to Observation Clinical Impression: Hyponatremia, Neutrophilic leukocytosis, Weakness generalized, History of r ecent fall - Discharge Information Sepsis Event Note (ED) - Evaluation Sepsis Screening Result: No Definite Risk - Focused Exam Vital Signs: Vital Signs Temp Pulse Resp BP Pulse Ox 11/16/19 10:23 96.4 F L 82 18 165/82 H 97 - Problem List & Annotations (1) History of recent fall SNOMED Code(s): 975426456 Code(s): Z91.81 - HISTORY OF FALLING Status: Acute Current Visit: Yes (2) Hyponatremia SNOMED Code(s): 91371691 Code(s): E87.1 - HYPO-OSMOLALITY AND HYPONATREMIA Status: Acute Current Visit: Yes (3) Neutrophilic leukocytosis SNOMED Code(s): 511938742, 058747457 Code(s): D72.9 - DISORDER OF WHITE BLOOD CELLS, UNSPECIFIED Status: Acute Current Visit: Yes (4) Weakness generalized SNOMED Code(s): 18505836 Code(s): R53.1 - WEAKNESS Status: Acute Current Visit: Yes - My Orders Last 24 Hours: My Active Orders 11/16/19 10:57 Head wo Cont [CT] Stat 11/16/19 11:42 Patient Status Manage Transfer [TRANSFER] Routine Resuscitation Status Routine 11/16/19 11:48 Chest 2V [CR] Stat - Assessment/Plan Admission H&P: Please use this note as an admission H&P Last 24 Hours: My Active Orders 11/16/19 10:57 Head wo Cont [CT] Stat 11/16/19 11:42 Patient Status Manage Transfer [TRANSFER] Routine Resuscitation Status Routine 11/16/19 11:48 Chest 2V [CR] Stat Plan: [place] [address], unsure of source/etiology. Sodium decreased to 125. Consulted with Dr. Sutton in regards to Katharine's condition. Will admit to observation status. Will give NS at 100ml/hr. Will repeat labs in am. Magnesium is pending.
[2019-11-16] MEDS ORDERED: LIDOCAINE TRDERM PRN (12:01)
[2019-11-16] MEDS ORDERED: Non-Formulary Medication 1 Each (Dextran 70/Hypromellose [Artificial Tears] 1 DROP) OP PRN (12:01)
[2019-11-16] MEDS ORDERED: Acetaminophen 325 MG Tab PO PRN (12:01)
[2019-11-16] MEDS ORDERED: Take Home: Acetaminophen/HYDROcodone 325-5 MG, 2 Tab Pack PO PRN (12:01)
[2019-11-16] MEDS ORDERED: Ondansetron 4 MG Tab.DIS PO PRN (12:01)
[2019-11-16] MEDS ORDERED: Albuterol/Ipratropium 3.0-0.5 MG/3 ML Neb Soln NEB PRN (12:01)
[2019-11-16] MEDS ORDERED: Ondansetron 4 MG/2 ML SDV IV PRN (12:01)
[2019-11-16] MEDS: Sodium Chloride 0.9% 1,000 ML IV SCH ×2 (12:27→19:18)
[2019-11-16] MEDS: Enoxaparin 40 MG/0.4 ML Syringe SUBCUT SCH (12:28)
[2019-11-16] MEDS: Acetaminophen/HYDROcodone 325-5 MG Tab*PT OWN MED PO PRN ×2 (15:09→19:53)
[2019-11-16] MEDS: LORAZEPAM 1 MG PO PRN (19:53)
[2019-11-16] MEDS ORDERED: FAMOTIDINE 40 MG PO SCH (20:00)
[2019-11-17] MEDS: LEVOTHYROXINE 88 MCG PO SCH (06:32)
[2019-11-17] MEDS: Acetaminophen/HYDROcodone 325-5 MG Tab*PT OWN MED PO PRN (06:36)
[2019-11-17 07:21] LABS: CHLORIDE,CL 102 mEq/L (98-106); SODIUM,NA 136 mEq/L (136-145)
[2019-11-17] MEDS: Enoxaparin 40 MG/0.4 ML Syringe SUBCUT SCH (07:28)
[2019-11-17] MEDS: Aspirin 81 MG Tab.EC PO SCH (07:28)
[2019-11-17] MEDS: FOLIC ACID 1 MG PO SCH (07:31)
[2019-11-17] MEDS: METOPROLOL SUCCINATE 50 MG PO SCH (07:32)
[2019-11-17] MEDS ORDERED: POTASSIUM CHLORIDE 20 MEQ PO SCH ×2 (08:00→11:57)
[2019-11-17] MEDS ORDERED: ESOMEPRAZOLE MAGNESIUM 40 MG PO SCH ×2 (08:00→11:57)
--- NOTE | 2019-11-17 08:47 | PCM.PN ---
- General Info Date of Service: 11/17/19 Admission Dx/Problem (Free Text): Hyponatremia Weakness Leukocytosis Functional Status: Reports: Pain Controlled ("is sore"), Tolerating Diet, Ambulating - Review of Systems General: Reports: Weakness, Fatigue, Malaise HEENT: Reports: Ear Pain, Post Nasal Drip, Sinus Congestion, Rhinitis, Other (dry mouth) Pulmonary: Denies: Shortness of Breath, Cough Cardiovascular: Denies: Chest Pain, Edema, Lightheadedness Gastrointestinal: Denies: Abdominal Pain, Nausea, Vomiting Genitourinary: Reports: No Symptoms Musculoskeletal: Reports: Back Pain, Leg Pain, Joint Pain, Other (myalgia) Skin: Reports: Bruising Neurological: Reports: Weakness - Patient Data Vitals - Most Recent: Last Vital Signs Temp 98 F 11/17/19 07:28 Pulse 73 11/17/19 07:28 Resp 18 11/17/19 07:28 BP 143/91 H 11/17/19 07:28 Pulse Ox 95 11/17/19 07:28 Weight - Most Recent: 170 lb 12.8 oz I&O - Last 24 Hours: Intake & Output 11/16/19 11/17/19 11/17/19 22:59 06:59 14:59 Intake Total 685 Balance 685 Lab Results Last 24 Hours: Laboratory Results - last 24 hr 11/16/19 11/16/19 11/16/19 Range/Units 10:19 10:19 10:19 WBC 20.0 H (5.0-10.0) 10^3/uL RBC 4.37 (4.00-5.50) 10^6/uL Hgb 12.0 (12.0-16.0) g/dL Hct 36.1 L (37.0-47.0) % MCV 82.6 (82.0-94.0) fL MCH 27.5 (27.0-32.0) pg MCHC 33.2 (33.0-38.0) g/dL RDW Coeff of Sher 15.9 H (11.0-15.0) % Plt Count 329 (150-400) 10^3/uL Neut % (Auto) 82.7 (35-85) % Lymph % (Auto) 7.0 L (10-55) % [place] % (Auto) 10.1 (0-16) % Eos % (Auto) 0.2 (0-5) % Baso % (Auto) 0 (0-3) % Neut # (Auto) 16.54 H (1.80-7.00) 10^3/uL Lymph # (Auto) 1.41 (1.00-4.80) 10^3/uL [place] # (Auto) 2.03 H (0.00-0.80) 10^3/uL Eos # (Auto) 0.05 (0.00-0.45) 10^3/uL Baso # (Auto) 0.01 10^3/uL Sodium 125 L (136-145) mEq/L Potassium 4.1 (3.5-5.0) mEq/L Chloride 91 L (98-106) mEq/L Carbon Dioxide 28 (21-32) mmol/L BUN 16 (7-18) mg/dL Creatinine 0.7 (0.6-1.0) mg/dL Est Cr Clr Drug Dosing 49.11 mL/min Estimated GFR (MDRD) > 60 (>=60) mL/min Glucose 96 (75-99) mg/dL Calcium 8.4 (8.4-10.1) mg/dL Magnesium (1.8-2.4) mg/dL Total Bilirubin 0.5 (0.0-1.0) mg/dL AST 17 (15-37) U/L ALT 28 (12-78) U/L Alkaline Phosphatase 117 H (46-116) U/L Creatine Kinase (21-215) U/L Troponin I (0.00-0.06) ng/mL C-Reactive Protein < 0.2 L (0.2-0.8) mg/dL Total Protein 6.8 (6.4-8.2) g/dL Albumin 3.3 L (3.4-5.0) g/dL Urine Color Yellow (YELLOW) Urine Appearance Clear (CLEAR) Urine pH 7.0 (4.5-8.0) Ur Specific [place] 1.015 (1.003-1.020) Urine Protein Negative (NEGATIVE) mg/dL Urine Glucose (UA) Negative (NEGATIVE) mg/dL Urine Ketones Negative (NEGATIVE) mg/dL Urine Occult Blood Negative (NEGATIVE) Urine Nitrite Negative (NEGATIVE) Urine Bilirubin Negative (NEGATIVE) Urine Urobilinogen 0.2 (0.2-1.0) EU/dL Ur Leukocyte Esterase Negative (NEGATIVE) 11/16/19 11/16/19 11/17/19 Range/Units 10:50 11:00 06:55 WBC 8.1 (5.0-10.0) 10^3/uL RBC 3.98 L (4.00-5.50) 10^6/uL Hgb 10.9 L (12.0-16.0) g/dL Hct 33.3 L (37.0-47.0) % MCV 83.7 (82.0-94.0) fL MCH 27.4 (27.0-32.0) pg MCHC 32.7 L (33.0-38.0) g/dL RDW Coeff of [place] 16.3 H (11.0-15.0) % Plt Count 292 (150-400) 10^3/uL Neut % (Auto) 72.2 (35-85) % Lymph % (Auto) 16.7 (10-55) % [place] % (Auto) 9.0 (0-16) % Eos % (Auto) 2.0 (0-5) % Baso % (Auto) 0.1 (0-3) % Neut # (Auto) 5.88 (1.80-7.00) 10^3/uL Lymph # (Auto) 1.36 (1.00-4.80) 10^3/uL [place] # (Auto) 0.73 (0.00-0.80) 10^3/uL Eos # (Auto) 0.16 (0.00-0.45) 10^3/uL Baso # (Auto) 0.01 10^3/uL Sodium (136-145) mEq/L Potassium (3.5-5.0) mEq/L Chloride (98-106) mEq/L Carbon Dioxide (21-32) mmol/L BUN (7-18) mg/dL Creatinine (0.6-1.0) mg/dL Est Cr Clr Drug Dosing mL/min Estimated GFR (MDRD) (>=60) mL/min Glucose (75-99) mg/dL Calcium (8.4-10.1) mg/dL Magnesium 1.9 (1.8-2.4) mg/dL Total Bilirubin (0.0-1.0) mg/dL AST (15-37) U/L ALT (12-78) U/L Alkaline Phosphatase (46-116) U/L Creatine Kinase 71 (21-215) U/L Troponin I < 0.017 (0.00-0.06) ng/mL C-Reactive Protein (0.2-0.8) mg/dL Total Protein (6.4-8.2) g/dL Albumin (3.4-5.0) g/dL Urine Color (YELLOW) Urine Appearance (CLEAR) Urine pH (4.5-8.0) Ur Specific [place] (1.003-1.020) Urine Protein (NEGATIVE) mg/dL Urine Glucose (UA) (NEGATIVE) mg/dL Urine Ketones (NEGATIVE) mg/dL Urine Occult Blood (NEGATIVE) Urine Nitrite (NEGATIVE) Urine Bilirubin (NEGATIVE) Urine Urobilinogen (0.2-1.0) EU/dL Ur Leukocyte Esterase (NEGATIVE) 11/17/19 Range/Units 06:55 WBC (5.0-10.0) 10^3/uL RBC (4.00-5.50) 10^6/uL Hgb (12.0-16.0) g/dL Hct (37.0-47.0) % MCV (82.0-94.0) fL MCH (27.0-32.0) pg MCHC (33.0-38.0) g/dL RDW Coeff of Sher (11.0-15.0) % Plt Count (150-400) 10^3/uL Neut % (Auto) (35-85) % Lymph % (Auto) (10-55) % [place] % (Auto) (0-16) % Eos % (Auto) (0-5) % Baso % (Auto) (0-3) % Neut # (Auto) (1.80-7.00) 10^3/uL Lymph # (Auto) (1.00-4.80) 10^3/uL [place] # (Auto) (0.00-0.80) 10^3/uL Eos # (Auto) (0.00-0.45) 10^3/uL Baso # (Auto) 10^3/uL Sodium 136 (136-145) mEq/L Potassium 3.6 (3.5-5.0) mEq/L Chloride 102 (98-106) mEq/L Carbon Dioxide 26 (21-32) mmol/L BUN 10 (7-18) mg/dL Creatinine 0.6 (0.6-1.0) mg/dL Est Cr Clr Drug Dosing 57.30 mL/min Estimated GFR (MDRD) > 60 (>=60) mL/min Glucose 110 H (75-99) mg/dL Calcium 7.7 L (8.4-10.1) mg/dL Magnesium (1.8-2.4) mg/dL Total Bilirubin (0.0-1.0) mg/dL AST (15-37) U/L ALT (12-78) U/L Alkaline Phosphatase (46-116) U/L Creatine Kinase (21-215) U/L Troponin I (0.00-0.06) ng/mL C-Reactive Protein 0.6 (0.2-0.8) mg/dL Total Protein (6.4-8.2) g/dL Albumin (3.4-5.0) g/dL Urine Color (YELLOW) Urine Appearance (CLEAR) Urine pH (4.5-8.0) Ur Specific [place] (1.003-1.020) Urine Protein (NEGATIVE) mg/dL Urine Glucose (UA) (NEGATIVE) mg/dL Urine Ketones (NEGATIVE) mg/dL Urine Occult Blood (NEGATIVE) Urine Nitrite (NEGATIVE) Urine Bilirubin (NEGATIVE) Urine Urobilinogen (0.2-1.0) EU/dL Ur Leukocyte Esterase (NEGATIVE) Med Orders - Current: Current Medications Acetaminophen (Tylenol) 650 mg PO Q4H PRN PRN Reason: Pain (Mild 1-3)/fever Hydrocodone Bitart/Acetaminophen ([place] 325-5 Mg) 0 tab PO Q6H PRN PRN Reason: PAIN Last Admin: 11/17/19 06:36 Dose: 1 tab Documented by: Albuterol/Ipratropium (Duoneb 3.0-0.5 Mg/3 Ml) 3 ml NEB QID PRN PRN Reason: Shortness of Breath Aspirin (Halfprin) 81 mg PO DAILY [facility] Last Admin: 11/17/19 07:28 Dose: 81 mg Documented by: Atorvastatin Calcium (Lipitor) 20 mg PO DAILY [facility] Last Admin: 11/17/19 07:32 Dose: 20 mg Documented by: Enoxaparin Sodium (Lovenox) 40 mg SUBCUT DAILY [facility] Last Admin: 11/17/19 07:28 Dose: 40 mg Documented by: Folic Acid (Folic Acid) 1 mg PO DAILY [facility] Last Admin: 11/17/19 07:31 Dose: 1 mg Documented by: Sodium Chloride (Normal Saline) 1,000 mls @ 100 mls/hr IV ASDIRECTED [facility] Last Admin: 11/16/19 19:18 Dose: 100 mls/hr Documented by: Levothyroxine Sodium (Synthroid) 88 mcg PO ACBREAKFAST [facility] Last Admin: 11/17/19 06:32 Dose: 88 mcg Documented by: Lidocaine (Lidocaine 5%) 700 mg TRDERM DAILY PRN PRN Reason: Pain Non-Formulary Medication (Dextran 70/Hypromellose [Artificial Tears]) 1 drop OP Q6HR PRN PRN Reason: Dry Eyes Esomeprazole Magnesium [Nexium] 40 Mg #Own Med# 40 mg PO DAILY [facility] Last Admin: 11/17/19 07:31 Dose: 40 mg Documented by: Lorazepam 1 Mg Tabs (*Pt Own Med*) 1 mg PO QID PRN PRN Reason: anxiety Last Admin: 11/16/19 19:53 Dose: 1 mg Documented by: Metoprolol Succinate (50mg Tab #Own Med#) 0 each PO DAILY [facility] Last Admin: 11/17/19 07:32 Dose: 1 each Documented by: Potassium Chloride (20 Meq #Own Med#) 20 meq PO DAILY [facility] Last Admin: 11/17/19 07:30 Dose: 20 meq Documented by: Ondansetron HCl (Zofran) 4 mg IV Q4H PRN PRN Reason: Nausea/Vomiting Ondansetron HCl (Zofran Odt) 4 mg PO Q8H PRN PRN Reason: Nausea Famotidine 40 Mg Tab (*Pt Own Med*) 0 each PO BEDTIME [facility] Last Admin: 11/16/19 19:21 Dose: 1 each Documented by: Discontinued Medications Hydrocodone Bitart/Acetaminophen (Take Home: Acetaminophen/Hydrocod, 2 Tab Pack) packet PO Q6HR PRN PRN Reason: Pain - Exam General: Alert, Oriented HEENT: Mucous Membr. Moist/[place] Neck: Supple Lungs: Clear to Auscultation, Normal Respiratory Effort Cardiovascular: Regular Rate, Regular Rhythm GI/Abdominal Exam: Normal Bowel Sounds, Soft, Non-Tender Extremities: Normal Inspection, No Pedal Edema Skin: Warm, Dry, Ecchymosis (bruising noted to right knee, bilateral elbow and forearms) Neurological: No New Focal Deficit Sepsis Event Note - Evaluation Sepsis Screening Result: No Definite Risk - Focused Exam Vital Signs: Vital Signs Temp Pulse Resp BP Pulse Ox 11/17/19 07:28 98 F 73 18 143/91 H 95 11/17/19 03:41 98 F 77 18 152/85 H 97 11/16/19 22:31 98 F 66 18 154/72 H 99 Date Exam was Performed: 11/17/19 Time Exam was Performed: 08:39 - Problem List & Annotations (1) History of recent fall SNOMED Code(s): 116477301 Code(s): Z91.81 - HISTORY OF FALLING Status: Acute Priority: High Current Visit: Yes (2) Hyponatremia SNOMED Code(s): 94412163 Code(s): E87.1 - HYPO-OSMOLALITY AND HYPONATREMIA Status: Acute Priority: High Current Visit: Yes (3) Neutrophilic leukocytosis SNOMED Code(s): 536229720, 355343953 Code(s): D72.9 - DISORDER OF WHITE BLOOD CELLS, UNSPECIFIED Status: Acute Priority: High Current Visit: Yes (4) Weakness generalized SNOMED Code(s): 02614486 Code(s): R53.1 - WEAKNESS Status: Acute Priority: High Current Visit: Yes - Problem List Review Problem List Initiated/Reviewed/Updated: Yes - Assessment Assessment:: Weakness Hyponatremia Leukocytosis - Plan Plan:: Patient admits to being sore today. Does feel weak. Does have scattered bruising on arms, legs, sore muscles. Is ambulating to the bathroom with walker but states "legs feel weak yet". Labs are improved today. WBC 8.1. Sodium 136 today. CRP is normal. Magnesium normal 1.9. Patient relates she did have 4 injections in her SI joints and hips about 3 weeks ago. Will continue with PT, IV fluids. Encourage ambulation. Possible discharge home tomorrow.
[2019-11-17] MEDS: FAMOTIDINE 40 MG PO SCH ×2 (19:36→20:05)
[2019-11-17] MEDS: LORAZEPAM 1 MG PO PRN (22:33)
[2019-11-18] MEDS: LORAZEPAM 1 MG PO PRN (04:31)
[2019-11-18] MEDS: LEVOTHYROXINE 88 MCG PO SCH (06:57)
[2019-11-18] MEDS ORDERED: ESOMEPRAZOLE MAGNESIUM 40 MG PO SCH (07:00)
[2019-11-18] MEDS: Aspirin 81 MG Tab.EC PO SCH (07:17)
[2019-11-18] MEDS: Enoxaparin 40 MG/0.4 ML Syringe SUBCUT SCH (07:18)
[2019-11-18] MEDS: FOLIC ACID 1 MG PO SCH (07:18)
[2019-11-18] MEDS: METOPROLOL SUCCINATE 50 MG PO SCH (07:19)
[2019-11-18 08:20] VITALS: BP 150/81; PULSE 73
--- NOTE | 2019-11-18 08:50 | PCM.DCSUM1 ---
Discharge Summary - Hospital Course Free Text/Narrative:: Katharine is a 74 year old female who presented to the ER with complaints of weakness and increased falls. Patient states she had gotten up during the night and is unsure exactly why she fell but feels she may have tripped over one of her 3 cats or "junk on the floor". Has been feeling more week, had fallen once prior to that as well. First time she only fell to her knees, second she fell backwards. Did hit her head but no LOC. She was able to crawl but couldn't get herself up from the floor so slept there overnight. Her neighbor checked on her the next am and found her still on the floor. She complained of muscle pain and weakness on arrival. WBC was found to be high at 20, CRP negative. Sodium low at 125. Admitted for IV fluids and repeat labs. Diagnosis: Stroke: No Modified Lynn Scale: No Symptoms at All Modified Lynn Scale Score: 0 - Discharge Data Discharge Date: 11/18/19 Discharge Disposition: Home, Self-Care 01 Condition: Good - Referral to Home Health Primary Care Physician: Deni Malagon MD - Discharge Diagnosis/Problem(s) (1) History of recent fall SNOMED Code(s): 553937689 ICD Code: Z91.81 - HISTORY OF FALLING Status: Acute Priority: High Current Visit: Yes (2) Hyponatremia SNOMED Code(s): 35450745 ICD Code: E87.1 - HYPO-OSMOLALITY AND HYPONATREMIA Status: Acute Priority: High Current Visit: Yes (3) Neutrophilic leukocytosis SNOMED Code(s): 783140653, 908687346 ICD Code: D72.9 - DISORDER OF WHITE BLOOD CELLS, UNSPECIFIED Status: Acute Priority: High Current Visit: Yes (4) Weakness generalized SNOMED Code(s): 83482777 ICD Code: R53.1 - WEAKNESS Status: Acute Priority: High Current Visit: Yes - Patient Summary/Data Complications: none Consults: Consultations 11/16/19 12:01 PT Evaluation and Treatment [CONS] Routine Hospital Course: Patient is doing well. Initially on admit day, did require 2 assist and the walker for transfer. She is now ambulating with her cane. States muscle in her thighs hurt but biofreeze has been working well for that. Ambulated well x2 yesterday around the nurses station. Sodium level improved after IV NS to 136. WBC is down to 8. Did report having [address] Malagon 3 weeks ago. Will discharge home. Follow up with Dr. Malagon in the next week. Physical therapy as outpatient if desires. - Patient Instructions Diet: Usual Diet as Tolerated Activity: As Tolerated - Discharge Plan *PRESCRIPTION DRUG MONITORING PROGRAM REVIEWED*: No *COPY OF PRESCRIPTION DRUG MONITORING REPORT IN PATIENT ALF: No Home Medications: Home Meds Metoprolol Succinate [Toprol Xl] 25 mg PO DAILY 01/04/14 [History] Acetaminophen [Tylenol] 650 mg PO Q6H PRN 12/11/14 [History] Cholecalciferol (Vitamin D3) [Vitamin D3] 5,000 units PO BEDTIME 12/11/14 [History] Cyanocobalamin (Vitamin B-12) [Cyanocobalamin Injection] 2,000 mcg IM Q14D 12/11/14 [History] atorvaSTATin Calcium [Atorvastatin Calcium] 25 mg PO DAILY 09/01/16 [History] Albuterol Sulfate [Proair Hfa] 1 puff INH Q4H PRN 09/02/16 [History] Folic Acid 1 mg PO DAILY 09/02/16 [History] Potassium Chloride 20 meq PO DAILY 09/02/16 [History] Albuterol/Ipratropium [DuoNeb 3.0-0.5 MG/3 ML] 3 ml NEB QID PRN 09/25/16 [History] Cranberry Fruit Extract [Cranberry] 2 tab PO BEDTIME 08/13/17 [History] LORazepam 2 mg PO QID PRN 08/13/17 [History] Dextran 70/Hypromellose [Artificial Tears] 1 drop OP Q6HR PRN 10/30/17 [History] Hydrocodone/Acetaminophen [Hydrocodone-Acetamin 5-325 mg] 1 - 2 tab PO Q6HR PRN 10/30/17 [History] Lidocaine 5% [Lidoderm 5%] 700 mg TRDERM DAILY PRN 10/30/17 [History] Ondansetron [Zofran ODT] 4 mg PO Q8HR PRN 10/30/17 [History] Levothyroxine [Synthroid] 88 mcg PO ACBREAKFAST 09/06/18 [History] Aspirin [Halfprin] 81 mg PO DAILY 10/17/19 [History] Esomeprazole Magnesium [Nexium] 40 mg PO DAILY 10/17/19 [History] Famotidine [Pepcid] 40 mg PO DAILY 10/17/19 [History] Forms: ED Department Discharge Referrals: Deni Malagon MD [Primary Care Provider] - (Follow up with Dr. Malagon in one week) - Discharge Summary/Plan Comment DC Time >30 min.: No - General Info Date of Service: 11/18/19 Admission Dx/Problem (Free Text: Hyponatremia Weakness Leukocytosis Functional Status: Reports: Pain Controlled, Tolerating Diet, Ambulating - Review of Systems General: Reports: Weakness HEENT: Reports: Rhinitis Pulmonary: Denies: Shortness of Breath, Cough Cardiovascular: Denies: Chest Pain, Edema, Lightheadedness Gastrointestinal: Denies: Abdominal Pain, Nausea, Vomiting Genitourinary: Reports: No Symptoms Musculoskeletal: Reports: Leg Pain Skin: Reports: Bruising Neurological: Reports: Weakness - Patient Data Vitals - Most Recent: Last Vital Signs Temp 96.6 F L 11/18/19 08:00 Pulse 73 11/18/19 08:00 Resp 16 11/18/19 08:00 BP 150/81 H 11/18/19 08:00 Pulse Ox 97 11/18/19 08:00 Weight - Most Recent: 170 lb 12.8 oz Med Orders - Current: Current Medications Acetaminophen (Tylenol) 650 mg PO Q4H PRN PRN Reason: Pain (Mild 1-3)/fever Hydrocodone Bitart/Acetaminophen ([place] 325-5 Mg) 0 tab PO Q6H PRN PRN Reason: PAIN Last Admin: 11/17/19 06:36 Dose: 1 tab Documented by: Albuterol/Ipratropium (Duoneb 3.0-0.5 Mg/3 Ml) 3 ml NEB QID PRN PRN Reason: Shortness of Breath Aspirin (Halfprin) 81 mg PO DAILY [facility] Last Admin: 11/18/19 07:17 Dose: 81 mg Documented by: Atorvastatin Calcium (Lipitor) 20 mg PO DAILY [facility] Last Admin: 11/18/19 07:18 Dose: 20 mg Documented by: Enoxaparin Sodium (Lovenox) 40 mg SUBCUT DAILY [facility] Last Admin: 11/18/19 07:18 Dose: 40 mg Documented by: Folic Acid (Folic Acid) 1 mg PO DAILY [facility] Last Admin: 11/18/19 07:18 Dose: 1 mg Documented by: Levothyroxine Sodium (Synthroid) 88 mcg PO ACBREAKFAST [facility] Last Admin: 11/18/19 06:57 Dose: 88 mcg Documented by: Lidocaine (Lidocaine 5%) 700 mg TRDERM DAILY PRN PRN Reason: Pain Non-Formulary Medication (Dextran 70/Hypromellose [Artificial Tears]) 1 drop OP Q6HR PRN PRN Reason: Dry Eyes Lorazepam 1 Mg Tabs (*Pt Own Med*) 1 mg PO QID PRN PRN Reason: anxiety Last Admin: 11/18/19 04:31 Dose: 1 mg Documented by: Metoprolol Succinate (50mg Tab #Own Med#) 0 each PO DAILY [facility] Last Admin: 11/18/19 07:19 Dose: 1 each Documented by: Famotidine 40 Mg Tab (*Pt Own Med*) 0 each PO BEDTIME [facility] Last Admin: 11/17/19 20:05 Dose: 1 each Documented by: Potassium Chloride (20 Meq #Own Med#) 0 meq PO DAILY [facility] Last Admin: 11/18/19 07:20 Dose: 20 meq Documented by: Esomeprazole Magnesium [Nexium] 40 Mg #Own Med# 0 mg PO ACBRK [facility] Last Admin: 11/18/19 06:57 Dose: 40 mg Documented by: Ondansetron HCl (Zofran) 4 mg IV Q4H PRN PRN Reason: Nausea/Vomiting Ondansetron HCl (Zofran Odt) 4 mg PO Q8H PRN PRN Reason: Nausea Discontinued Medications Hydrocodone Bitart/Acetaminophen (Take Home: Acetaminophen/Hydrocod, 2 Tab Pack) packet PO Q6HR PRN PRN Reason: Pain Sodium Chloride (Normal Saline) 1,000 mls @ 100 mls/hr IV ASDIRECTED [facility] Last Admin: 11/16/19 19:18 Dose: 100 mls/hr Documented by: Esomeprazole Magnesium [Nexium] 40 Mg #Own Med# 40 mg PO DAILY [facility] Last Admin: 11/17/19 07:31 Dose: 40 mg Documented by: Potassium Chloride (20 Meq #Own Med#) 20 meq PO DAILY [facility] Last Admin: 11/17/19 07:30 Dose: 20 meq Documented by: Esomeprazole Magnesium [Nexium] 40 Mg #Own Med# 0 mg PO DAILY [facility] Famotidine 40 Mg Tab (*Pt Own Med*) 0 each PO BEDTIME [facility] Last Admin: 11/16/19 19:21 Dose: 1 each Documented by: - Exam General: Reports: Alert, Oriented HEENT: Reports: Mucous Membr. Moist/[place] Neck: Reports: Supple Lungs: Reports: Clear to Auscultation, Normal Respiratory Effort Cardiovascular: Reports: Regular Rate, Regular Rhythm GI/Abdominal Exam: Normal Bowel Sounds, Soft, Non-Tender Extremities: Normal Inspection, No Pedal Edema Skin: Reports: Ecchymosis Neurological: Reports: No New Focal Deficit
== END 2019-11-18 12:37 | disposition home or self-care (01) ==
LOC: CC.ED 10:15 → CC.MS 11:42 → UNDOADMOB 11:49
PROVIDERS: ADMIT Physician Assistant Medical; ATTEND Family Medicine
DX: E87.1 Hypo-osmolality and hyponatremia (principal); D72.828 Other elevated white blood cell count; E78.00 Pure hypercholesterolemia, unspecified; Z79.899 Other long term (current) drug therapy; Z91.81 History of falling; Z88.2 Allergy status to sulfonamides; Z88.8 Allergy status to other drugs, medicaments and biological substances
CPT/HCPCS: 36415; 70450; 71046; 73562-RT; 80048; 80053; 81003; 82550; 83735; 84484; 85025; 86140; 93005; 96360; 96361; 96372; 97161-GP; 99285-25; A9270-GY; G0378; J1650; J7030

== ENCOUNTER 2021-03-13 21:35 | Emergency (ER) | payer BC ==
[2021-03-13 22:12] VITALS: BP 168/65; PULSE 85
--- NOTE | 2021-03-13 22:55 | EDM.PDOC ---
ED HPI GENERAL MEDICAL PROBLEM - General Chief Complaint: General Stated Complaint: fall Time Seen by Provider: 03/13/21 21:50 Source of Information: Reports: Patient, RN History Limitations: Reports: No Limitations - History of Present Illness INITIAL COMMENTS - FREE TEXT/NARRATIVE: States that she kicked at her cat and lost her balance and fell and hit the left forehead on the window sill and then her chest on the floor. She denies any LOC. She has skin tears to her left forearm that currently are not bleeding. She has large hematoma on the left forehead. She has bruises to the left breast. She states that she crawled over to her chair to be able to get up. Onset: Sudden Location: Reports: Head, Chest Left Forehead Pain Score (Numeric/FACES): 5 - Related Data Allergies Allergy/AdvReac Type Severity Reaction Status Date / Time amitriptyline Allergy Other Verified 03/13/21 22:11 mirabegron [From Myrbetriq] Allergy Other Verified 03/13/21 22:11 sulfamethoxazole Allergy Hives Verified 03/13/21 22:11 [From Bactrim] tramadol Allergy Confusion Verified 03/13/21 22:11 trimethoprim [From Bactrim] Allergy Hives Verified 03/13/21 22:11 Home Meds: Home Meds Metoprolol Succinate [Toprol Xl] 25 mg PO DAILY 01/04/14 [History] Acetaminophen [Tylenol] 650 mg PO Q6H PRN 12/11/14 [History] Cholecalciferol (Vitamin D3) [Vitamin D3] 5,000 units PO BEDTIME 12/11/14 [History] Cyanocobalamin (Vitamin B-12) [Cyanocobalamin Injection] 2,000 mcg IM Q14D 12/11/14 [History] atorvaSTATin Calcium [Atorvastatin Calcium] 25 mg PO DAILY 09/01/16 [History] Albuterol Sulfate [Proair Hfa] 1 puff INH Q4H PRN 09/02/16 [History] Folic Acid 1 mg PO DAILY 09/02/16 [History] Potassium Chloride 20 meq PO DAILY 09/02/16 [History] Albuterol/Ipratropium [DuoNeb 3.0-0.5 MG/3 ML] 3 ml NEB QID PRN 09/25/16 [History] Cranberry Fruit Extract [Cranberry] 2 tab PO BEDTIME 08/13/17 [History] LORazepam 2 mg PO QID PRN 08/13/17 [History] Dextran 70/Hypromellose [Artificial Tears] 1 drop OP Q6HR PRN 10/30/17 [History] Hydrocodone/Acetaminophen [HYDROcodone-Acetaminophen 5-325 MG] 1 - 2 tab PO Q6HR PRN 10/30/17 [History] Lidocaine 5% [Lidoderm 5%] 700 mg TRDERM DAILY PRN 10/30/17 [History] Ondansetron [Zofran ODT] 4 mg PO Q8HR PRN 10/30/17 [History] Levothyroxine [Synthroid] 88 mcg PO ACBREAKFAST 09/06/18 [History] Aspirin [Halfprin] 81 mg PO DAILY 10/17/19 [History] Esomeprazole Magnesium [Nexium] 40 mg PO DAILY 10/17/19 [History] Famotidine [Pepcid] 40 mg PO DAILY 10/17/19 [History] Past Medical History - Past Health History Medical/Surgical History: Denies Medical/Surgical History HEENT History: Reports: Cataract, Sinusitis Cardiovascular History: Reports: Afib, Aneurysm, Blood Clots/VTE/DVT, High Cholesterol, Pacemaker, Other (See Below) Other Cardiovascular History: SVT Respiratory History: Reports: Asthma Gastrointestinal History: Reports: Diverticulosis, GERD Genitourinary History: Reports: Urinary Incontinence [employer] History: Reports: Musculoskeletal History: Reports: Arthritis, Back Pain, Chronic, Fracture, Neck Pain, Chronic Neurological History: Reports: None Psychiatric History: Reports: Anxiety Endocrine/Metabolic History: Reports: Hypothyroidism Hematologic History: Reports: Anemia, Blood Transfusion(s) Oncologic (Cancer) History: Reports: None Dermatologic History: Reports: Other (See Below) Other Dermatologic History: reports years ago removed skin cancer on face. - Past Surgical History HEENT Surgical History: Reports: Cataract Surgery Cardiovascular Surgical History: Reports: Cardiac Ablation Respiratory Surgical History: Reports: None GI Surgical History: Reports: Appendectomy, Cholecystectomy, Colonoscopy, EGD, Polypectomy Female Surgical History: Reports: Hysterectomy, Other (See Below) Other Female Surgeries/Procedures: bladder reconstruction Endocrine Surgical History: Reports: Parathyroidectomy, Thyroidectomy Neurological Surgical History: Reports: Lumbar Spine, Other (See Below) Other Neurological Surgeries/Procedures: removed 7 bone spurs Musculoskeletal Surgical History: Reports: Carpal Tunnel Oncologic Surgical History: Reports: Biopsy of Breast Dermatological Surgical History: Reports: Skin Biopsy Social & Family History - Family History Family Medical History: No Pertinent Family History - Tobacco Use Tobacco Use Status *Q: Never Tobacco User Second Hand Smoke Exposure: No - Caffeine Use Caffeine Use: Reports: Coffee, Soda - Living Situation & Occupation Living situation: Reports: , Alone Occupation: Employed ED ROS GENERAL - Review of Systems Review Of Systems: See Below Constitutional: Reports: No Symptoms Respiratory: Reports: No Symptoms Cardiovascular: Reports: No Symptoms GI/Abdominal: Reports: No Symptoms Musculoskeletal: Reports: Arm Pain Skin: Reports: Wound (left arm) Neurological: Reports: No Symptoms ED EXAM, GENERAL - Physical Exam Exam: See Below Exam Limited By: No Limitations General Appearance: Alert, WD/WN, No Apparent Distress Ears: Normal External Exam, Normal TMs Throat/Mouth: Normal Inspection, Normal Oropharynx Head: Atraumatic, Normocephalic Neck: Normal Inspection, Supple, Non-Tender Respiratory/Chest: No Respiratory Distress, Lungs Clear, Normal Breath Sounds, Other (tender to the anterior chest wall. Bruising to the left breast.) Cardiovascular: Regular Rate, Rhythm GI/Abdominal: Normal Bowel Sounds, Soft Neurological: Alert, Oriented Skin Exam: Warm, Dry, Wound/Incision (Has multiple skin tears to the left forearm that were pulled back together and steri stripped.) Course - Vital Signs Last Recorded V/S: Last Vital Signs Temp 98 F 03/13/21 22:12 Pulse 85 03/13/21 21:58 Resp 18 03/13/21 21:58 BP 168/65 H 03/13/21 21:58 Pulse Ox 98 03/13/21 21:58 - Orders/Labs/Meds Orders: Active Orders 24 hr Category Date Time Status Chest 2V [CR] Stat Exams 03/13/21 21:45 Taken Head wo Cont [CT] Stat Exams 03/13/21 21:45 Taken - Re-Assessments/Exams Free Text/Narrative Re-Assessment/Exam: 03/13/21 22:58 Report from radiology that no bleed into the brain. Departure - Departure Time of Disposition: 22:59 Disposition: Home, Self-Care 01 Condition: Good Clinical Impression: Fall at home Qualifiers: Encounter type: initial encounter Qualified Code(s): W19.XXXA - Unspecified fall, initial encounter; Y92.009 - Unspecified place in unspecified non- institutional (private) residence as the place of occurrence of the external cause Traumatic hematoma of forehead Qualifiers: Encounter type: initial encounter Qualified Code(s): S00.83XA - Contusion of other part of head, initial encounter Skin tear of left forearm without complication Qualifiers: Encounter type: initial encounter Qualified Code(s): S51.812A - Laceration without foreign body of left forearm, initial encounter - Discharge Information *PRESCRIPTION DRUG MONITORING PROGRAM REVIEWED*: Not Applicable *COPY OF PRESCRIPTION DRUG MONITORING REPORT IN PATIENT ALF: Not Applicable Instructions: Hematoma, Nonw-ek-Asoi Additional Instructions: Keep steri strips on until they fall off on there own. Keep clean and dry recheck if any change in neuro status ICE to forehead Sepsis Event Note (ED) - Evaluation Sepsis Screening Result: No Definite Risk - Focused Exam Vital Signs: Vital Signs Temp Pulse Resp BP Pulse Ox 03/13/21 22:12 98 F 03/13/21 21:58 95.9 F L 85 18 168/65 H 98 - Problem List & Annotations (1) Fall at home SNOMED Code(s): 38923105 Code(s): W19.XXXA - UNSPECIFIED FALL, INITIAL ENCOUNTER; Y92.009 - UNSP PLACE IN UNSP NON-INSTITUT (PRIVATE) RESIDENCE PLACE Status: Acute Priority: High Qualifiers: Encounter type: initial encounter Qualified Code(s): W19.XXXA - Unspecified fall, initial encounter; Y92.009 - Unspecified place in unspecified non- institutional (private) residence as the place of occurrence of the external cause (2) Skin tear of left forearm without complication SNOMED Code(s): 610345974 Code(s): S51.812A - LACERATION WITHOUT FOREIGN BODY OF LEFT FOREARM, INIT ENCNTR Status: Acute Priority: High Qualifiers: Encounter type: initial encounter Qualified Code(s): S51.812A - Laceration without foreign body of left forearm, initial encounter (3) Traumatic hematoma of forehead SNOMED Code(s): 289622863, 657816373 Code(s): S00.83XA - CONTUSION OF OTHER PART OF HEAD, INITIAL ENCOUNTER Status: Acute Priority: High Qualifiers: Encounter type: initial encounter Qualified Code(s): S00.83XA - Contusion of other part of head, initial encounter - Problem List Review Problem List Initiated/Reviewed/Updated: Yes - My Orders Last 24 Hours: My Active Orders 03/13/21 21:45 Chest 2V [CR] Stat Head wo Cont [CT] Stat - Assessment/Plan Last 24 Hours: My Active Orders 03/13/21 21:45 Chest 2V [CR] Stat Head wo Cont [CT] Stat
== END 2021-03-13 23:20 | disposition home or self-care (01) ==
LOC: CC.ED 21:35
DX: S51.812A Laceration without foreign body of left forearm, initial encounter (principal); S20.02XA Contusion of left breast, initial encounter; Z88.2 Allergy status to sulfonamides; Z88.8 Allergy status to other drugs, medicaments and biological substances; Z88.6 Allergy status to analgesic agent; W19.XXXA Unspecified fall, initial encounter; Y92.009 Unspecified place in unspecified non-institutional (private) residence as the place of occurrence of the external cause
CPT/HCPCS: 70450; 71046; 99284-25

== ENCOUNTER 2023-01-26 02:34 | Emergency (ER) | payer MEDICARE, BC ==
[2023-01-26 02:56] LABS: BASOPHILS ABSOLUTE AUTO 0.01 10^3/uL (0.00-0.50); BASOPHILS PERCENT AUTO 0.1 % (0-1); HEMATOCRIT 32.7 % (37.0-47.0); IMMATURE GRAN ABSOLUTE AUTO 0.07 10^3/uL (0.00-0.49); IMMATURE GRAN PERCENT AUTO 0.6 % (0.0-4.9); LYMPHOCYTES ABSOLUTE AUTO 1.04 10^3/uL (0.60-5.00); LYMPHOCYTES PERCENT AUTO 9.2 % (24-44); MEAN CORPUSCULAR HEMOGLOBIN 29.6 pg (27.0-32.0); MEAN CORPUSCULAR HGB CONC 33.6 g/dL (32.0-36.0); MEAN CORPUSCULAR VOLUME 87.9 fL (83.0-97.0); MONOCYTES ABSOLUTE AUTO 0.74 10^3/uL (0.00-1.50); MONOCYTES PERCENT AUTO 6.5 % (0-10); NEUTROPHILS ABSOLUTE AUTO 9.47 x10^3/uL (1.80-8.00); NEUTROPHILS PERCENT AUTO 83.6 % (41-71); PLATELET COUNT,PLT 279 10^3/uL (150-400); RED BLOOD CELL COUNT 3.72 x10^6/uL (4.00-5.50); WHITE BLOOD CELL COUNT,WBC 11.3 10^3/uL (4.0-11.0)
[2023-01-26 03:10] LABS: ALBUMIN 2.9 g/dL (3.4-5.0); BILIRUBIN TOTAL 0.5 mg/dL (0.0-1.0); CALCIUM 8.1 mg/dL (8.4-10.1); CREATININE 0.7 mg/dL (0.6-1.0); EST CRCL DRUG DOSING (CG) 46.81 mL/min; INR 1.05 (0.92-1.18); POTASSIUM,K 3.7 mEq/L (3.5-5.0); PROTEIN TOTAL,TP 5.9 g/dL (6.4-8.2); PROTHROMBIN TIME 10.8 SEC (9.3-11.3)
[2023-01-26 04:03] VITALS: BP 130/62; PULSE 63
== END 2023-01-26 04:00 | disposition home or self-care (01) ==
LOC: CC.ED 02:34
DX: S01.01XA Laceration without foreign body of scalp, initial encounter (principal); S09.90XA Unspecified injury of head, initial encounter; I48.91 Unspecified atrial fibrillation; E78.00 Pure hypercholesterolemia, unspecified; K21.9 Gastro-esophageal reflux disease without esophagitis; E03.9 Hypothyroidism, unspecified; Z79.01 Long term (current) use of anticoagulants; Z88.1 Allergy status to other antibiotic agents; Z88.5 Allergy status to narcotic agent; Z88.8 Allergy status to other drugs, medicaments and biological substances; Z79.899 Other long term (current) drug therapy; W18.09XA Striking against other object with subsequent fall, initial encounter
CPT/HCPCS: 12001; 36415; 70450; 80053; 85025; 85610; 99283; 99284

== ENCOUNTER 2024-11-11 12:35 | Emergency (ER) | payer MEDICARE, BC ==
[2024-11-11] MEDS: Ondansetron 4 MG/2 ML SDV IVPUSH STA (12:58)
[2024-11-11 13:04] LABS: BASOPHILS ABSOLUTE AUTO 0.01 10^3/uL (0.00-0.50); BASOPHILS PERCENT AUTO 0.1 % (0-1); HEMATOCRIT 35.9 % (37.0-47.0); HEMOGLOBIN 11.4 g/dL (12.0-16.0); IMMATURE GRAN ABSOLUTE AUTO 0.02 10^3/uL (0.00-0.49); IMMATURE GRAN PERCENT AUTO 0.2 % (0.0-4.9); LYMPHOCYTES ABSOLUTE AUTO 0.69 10^3/uL (0.60-5.00); LYMPHOCYTES PERCENT AUTO 5.3 % (24-44); MEAN CORPUSCULAR HEMOGLOBIN 30.1 pg (27.0-32.0); MEAN CORPUSCULAR HGB CONC 31.8 g/dL (32.0-36.0); MEAN CORPUSCULAR VOLUME 94.7 fL (83.0-97.0); MONOCYTES ABSOLUTE AUTO 0.44 10^3/uL (0.00-1.50); MONOCYTES PERCENT AUTO 3.4 % (0-10); NEUTROPHILS ABSOLUTE AUTO 11.85 x10^3/uL (1.80-8.00); PLATELET COUNT,PLT 185 10^3/uL (150-400); RED BLOOD CELL COUNT 3.79 x10^6/uL (4.00-5.50)
[2024-11-11 13:21] LABS: ALANINE AMINOTRANSFERASE,ALT 14 U/L (12-78); ALBUMIN 3.8 g/dL (3.4-5.0); ALKALINE PHOSPHATASE 57 U/L (46-116); ASPARTATE AMNIOTRANSFERASE,AST 10 U/L (15-37); BILIRUBIN TOTAL 0.8 mg/dL (0.0-1.0); BLOOD UREA NITROGEN,BUN 17 mg/dL (7-18); C-REACTIVE PROTEIN 7.38 mg/dL (<=0.50); CARBON DIOXIDE,CO2 24 mmol/L (21-32); CHLORIDE,CL 104 mEq/L (98-106); CREATININE 0.9 mg/dL (0.6-1.0); ESTIMATED GFR 64 mL/min (>=60); GLUCOSE RANDOM 82 mg/dL (75-99); LIPASE 16 U/L (16-77); MAGNESIUM 1.9 mg/dL (1.8-2.4); POTASSIUM,K 4.1 mEq/L (3.5-5.0); PROTEIN TOTAL,TP 7.6 g/dL (6.4-8.2); SODIUM,NA 141 mEq/L (136-145)
[2024-11-11] MEDS: Iopamidol 755 Mg/ML 100 ML Bottle IVPUSH ONE (13:21)
[2024-11-11] MEDS: Piperacillin/Tazobactam 4.5 GM in Sodium Chloride 0.9% 100 ML IV ONE (13:45)
[2024-11-11] MEDS: Sodium Chloride 0.9% 1,000 ML IV ONE ×2 (13:45→16:30)
[2024-11-11 14:46] LABS: APPEARANCE,URINE CLEAR (CLEAR); BILIRUBIN,URINE NEGATIVE (NEGATIVE); COLOR,URINE YELLOW (YELLOW); GLUCOSE,URINE NEGATIVE (NEGATIVE); KETONES,URINE NEGATIVE (NEGATIVE); LEUKOCYTE ESTERASE,URINE NEGATIVE (NEGATIVE); NITRITE,URINE NEGATIVE (NEGATIVE); OCCULT BLOOD,URINE NEGATIVE (NEGATIVE); PROTEIN,URINE 30 mg/dL (NEGATIVE); UROBILINOGEN,URINE 0.2 EU/dL (0.2-1.0)
[2024-11-11 14:56] LABS: BACTERIA,URINE NOT SEEN /HPF (NOT SEEN); RBC,URINE NOT SEEN /HPF (0-5); SQUAMOUS EPITHELIAL CELLS,UR OCCASIONAL /HPF (NOT SEEN); WBC,URINE 0-5 /HPF (0-5); YEAST,URINE MODERATE /HPF (NOT SEEN)
[2024-11-11] MEDS: Sodium Chloride 0.9% 1,000 ML ONE (15:55)
[2024-11-11 16:12] VITALS: BP 122/49; PULSE 91
[2024-11-11] MEDS: HYDROmorphone 0.5 MG/0.5 ML Syringe IVPUSH PRN (16:28)
== END 2024-11-11 17:10 ==
LOC: CC.ED 12:35
DX: K63.1 Perforation of intestine (nontraumatic) (principal); E87.20 Acidosis, unspecified; D72.823 Leukemoid reaction; I48.91 Unspecified atrial fibrillation; E78.00 Pure hypercholesterolemia, unspecified; E03.9 Hypothyroidism, unspecified; J45.909 Unspecified asthma, uncomplicated; M19.90 Unspecified osteoarthritis, unspecified site; Z88.8 Allergy status to other drugs, medicaments and biological substances; Z79.82 Long term (current) use of aspirin; Z88.2 Allergy status to sulfonamides; Z79.899 Other long term (current) drug therapy; Z79.890 Hormone replacement therapy; Z79.02 Long term (current) use of antithrombotics/antiplatelets; Z90.49 Acquired absence of other specified parts of digestive tract; Z90.710 Acquired absence of both cervix and uterus
CPT/HCPCS: 36415; 71045; 74177; 80053; 81001; 83605; 83690; 83735; 84484; 85025; 86140; 87040; 87428-QW; 93005; 93010; 96361; 96365; 96375; 99284; 99285-25; J1171; J2405; J2543; J7030; Q9967